=== PATIENT | female | born 1995 | race Hispanic/Latino ===

== ENCOUNTER 2017-11-14 16:39 | Emergency (ER) | payer OTHER ==
--- OUTSIDE RECORDS SUMMARY | 2017-11-14 16:42 | XMS REPORT ---
:1995 Author Organization eClinicalWorks Care Team Providers Name Role Phone Paul Wilder Provider Role Unavailable Allergies, Adverse Reactions, Alerts Substance Reaction Event Type N.K.D.A. Info Not Available Non Drug Allergy Problems Problem Type Condition Code Onset Dates Condition Status Problem Herpes simplex vulvovaginitis A60.04 Active Problem STI (sexually transmitted infection) A64 Active Problem IUD (intrauterine device) in place Z97.5 Active Assessment IUD (intrauterine device) in place Z97.5 Active Assessment Herpes simplex vulvovaginitis A60.04 Active Assessment STI (sexually transmitted infection) A64 Active Medications Medication Code System Code Instructions Start Date End Date Status Dosage Acyclovir [facility] [id number] 400 MG Orally October 18, Active 1 tablet Three times a day 2017 Results No Known Results Summary Purpose eClinicalWorks Submission
--- NOTE | 2017-11-14 17:39 | ER ---
Nurse's Notes [facility] Name: Gabi Thayer Age: 22 yrs Sex: Female : 1995 Arrival Date: 11/14/2017 Time: 16:41 Bed 20 Private MD: Diagnosis: Acute pharyngitis Presentation: 11/14 16:48 Presenting complaint: Patient states: my throat has been hurting really bad, started tw2 yesterday morning, coughing. Transition of care: patient was not received from another setting of care. Onset of symptoms was November 14, 2017. Initial Sepsis Screen: Does the patient meet any 2 criteria? No. Patient's initial sepsis screen is negative. Does the patient have a suspected source of infection? No. Patient's initial sepsis screen is negative. Care prior to arrival: None. 16:48 Method Of Arrival: Ambulatory tw2 16:48 Acuity: DOC 4 tw2 Triage Assessment: 17:08 General: Appears in no apparent distress. 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 - Social history:: Smoking status: Patient uses tobacco products, denies chronic smoking, but will smoke occasionally. Screenin:07 Abuse screen: Denies threats or abuse. Denies injuries from another. Nutritional hj screening: No deficits noted. Tuberculosis screening: No symptoms or risk factors identified. Fall Risk None identified. Assessment: 17:07 Pain: Complains of pain in throat. Respiratory: Airway is patent Respiratory effort is hj even, unlabored, Respiratory pattern is regular, symmetrical, Breath sounds are clear bilaterally. EENT: Throat has enlarged tonsils. 17:09 Reassessment: Patient and/or family updated on plan of care and expected duration. Pain hj level reassessed. Patient is alert, oriented x 3, equal unlabored respirations, skin warm/dry/pink. Vital Signs: 16:49 BP 117 / 63; Pulse 87; Resp 17; Temp 97.9(TE); Pulse Ox 98% on R/A; Weight 83.91 kg; tw2 Height 5 ft. 4 in. (162.56 cm) (R); Pain 10/10; 16:49 Body Mass Index 31.75 (83.91 kg, 162.56 cm) tw2 ED Course: 16:41 Patient arrived in ED. tw3 16:49 Triage completed. tw2 16:49 Arm band placed on. tw2 16:52 Zachary Crump NP is PHCP. pm1 16:52 Leonid Stanton MD is Attending Physician. pm1 16:56 Rome Suggs, IHSAN is Primary Nurse. hj 17:08 Patient has correct armband on for positive identification. Placed in gown. Bed in low hj position. Call light in reach. Side rails up X 1. 17:46 No provider procedures requiring assistance completed. Patient did not have IV access hj during this emergency room visit. Administered Medications: No medications were administered Outcome: 17:39 Discharge ordered by MD. pm1 17:46 Discharged to home ambulatory, with family. hj 17:46 Condition: stable 17:46 Discharge instructions given to patient, family, Instructed on discharge instructions, follow up and referral plans. Demonstrated understanding of instructions, follow-up care. 17:47 Patient left the ED. hj Signatures: Rome Suggs RN RN hj Marinas, Patrick, NP SOIL CONSERVATION AIDE pm1 Deb Diaz RN RN tw2 Lady Mccloud tw3
--- NOTE | 2017-11-14 17:40 | EDPHYS ---
Physician Documentation [facility] Name: Gabi Thayer Age: 22 yrs Sex: Female : 1995 Arrival Date: 11/14/2017 Time: 16:41 Bed 20 Private MD: ED Physician Leonid Stanton HPI: 11/14 17:10 This 22 yrs old Female presents to ER via Ambulatory with complaints of Sore pm1 Throat. 17:10 The patient presents with sore throat. The patient describes throat pain as constant, pm1 raw, scratchy. Onset: The symptoms/episode began/occurred yesterday. Severity of symptoms: in the emergency department the symptoms are actually worse. Modifying factors: The symptoms are alleviated by nothing, the symptoms are aggravated by fluids, foods, swallowing, Patient's oral intake status: good Denies contact with similarly ill indivduals. Associated signs and symptoms: Pertinent positives: cough, Pertinent negatives chest pain, diarrhea, earache, fever, flu-like symptoms, headache, rhinorrhea, shortness of breath, vomiting. The patient has not experienced similar symptoms in the past. The patient has not recently seen a physician. 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 - Social history:: Smoking status: Patient uses tobacco products, denies chronic smoking, but will smoke occasionally. ROS: 17:13 Constitutional: Negative for fever, chills, and weight loss, Eyes: Negative for injury, pm1 pain, redness, and discharge. 17:13 Neck: Negative for injury, pain, and swelling, Cardiovascular: Negative for chest pain, palpitations, and edema, Abdomen/GI: Negative for abdominal pain, nausea, vomiting, diarrhea, and constipation, Back: Negative for injury and pain, : Negative for injury, bleeding, discharge, and swelling, MS/Extremity: Negative for injury and deformity, Skin: Negative for injury, rash, and discoloration, Neuro: Negative for headache, weakness, numbness, tingling, and seizure. 17:13 ENT: Positive for sore throat, Negative for drainage from ear(s), ear pain, rhinorrhea, sinus congestion, sinus pain, difficulty swallowing, difficulty handling secretions, hoarseness. 17:13 Respiratory: Positive for cough, Negative for shortness of breath, sputum production, pm1 wheezing. Exam: 17:13 Constitutional: This is a well developed, well nourished patient who is awake, alert, pm1 and in no acute distress. Head/Face: Normocephalic, atraumatic. Eyes: Pupils equal round and reactive to light, extra-ocular motions intact. Lids and lashes normal. Conjunctiva and sclera are non-icteric and not injected. Cornea within normal limits. Periorbital areas with no swelling, redness, or edema. 17:13 Neck: Trachea midline, no thyromegaly or masses palpated, and no cervical lymphadenopathy. Supple, full range of motion without nuchal rigidity, or vertebral point tenderness. No Meningismus. Chest/axilla: Normal chest wall appearance and motion. Nontender with no deformity. No lesions are appreciated. Cardiovascular: Regular rate and rhythm with a normal S1 and S2. No gallops, murmurs, or rubs. Normal PMI, no JVD. No pulse deficits. Respiratory: Lungs have equal breath sounds bilaterally, clear to auscultation and percussion. No rales, rhonchi or wheezes noted. No increased work of breathing, no retractions or nasal flaring. Abdomen/GI: Soft, non-tender, with normal bowel sounds. No distension or tympany. No guarding or rebound. No evidence of tenderness throughout. Back: No spinal tenderness. No costovertebral tenderness. Full range of motion. Skin: Warm, dry with normal turgor. Normal color with no rashes, no lesions, and no evidence of cellulitis. MS/ Extremity: Pulses equal, no cyanosis. Neurovascular intact. Full, normal range of motion. 17:13 ENT: External ear(s): are unremarkable, Ear canal(s): are normal, TM's: are normal, Nose: is normal, Mouth: is normal, Posterior pharynx: Airway: normal, no evidence of obstruction, patent, Tonsils: bilaterally enlarged, with erythema, no exudate, no ulcerations, peritonsillar mass, is not appreciated, pooling of secretions, is not appreciated. 17:13 Neuro: Orientation: is normal, Motor: is normal, Gait: is steady, at a normal pace, without difficulty. Vital Signs: 16:49 BP 117 / 63; Pulse 87; Resp 17; Temp 97.9(TE); Pulse Ox 98% on R/A; Weight 83.91 kg; tw2 Height 5 ft. 4 in. (162.56 cm) (R); Pain 10/10; 16:49 Body Mass Index 31.75 (83.91 kg, 162.56 cm) tw2 MDM: 16:52 Patient medically screened. pm1 16:53 Data reviewed: vital signs. Data interpreted: Pulse oximetry: on room air is 98 %. pm1 Interpretation: normal. 17:38 Counseling: I had a detailed discussion with the patient and/or guardian regarding: the pm1 historical points, exam findings, and any diagnostic results supporting the discharge/admit diagnosis, lab results, the need for outpatient follow up, to return to the emergency department if symptoms worsen or persist or if there are any questions or concerns that arise at home. 11/14 17:01 Order name: Strep; Complete Time: 17:39 pm1 11/14 17:37 Order name: Throat Culture EDMS Administered Medications: No medications were administered Disposition: 18:16 Co-signature as Attending Physician, Leonid Stanton MD. rn Disposition: 11/14/17 17:39 Discharged to Home. Impression: Acute pharyngitis. - Condition is Stable. - Discharge Instructions: Pharyngitis, Salt Water Gargle. - Work release form, Medication Reconciliation Form, Thank You Letter, Antibiotic Education form. - Follow up: Emergency Department; When: As needed; Reason: Worsening of condition. Follow up: Private Physician; When: 2 - 3 days; Reason: Recheck today's complaints, Continuance of care, Re-evaluation by your physician. - Problem is new. - Symptoms have improved. Signatures: Dispatcher [employer] EDMS Leonid Stnaton MD MD rn Joaquin, Henry, RN RN hj Marinas, Patrick, NP FILM EDITOR pm1 Deb Diaz RN RN tw2 Corrections: (The following items were deleted from the chart) 17:13 17:13 Neck: Negative for injury, pain, and swelling, Cardiovascular: Negative for chest pm1 pain, palpitations, and edema, Respiratory: Negative for shortness of breath, cough, wheezing, and pleuritic chest pain, Abdomen/GI: Negative for abdominal pain, nausea, vomiting, diarrhea, and constipation, Back: Negative for injury and pain, : Negative for injury, bleeding, discharge, and swelling, MS/Extremity: Negative for injury and deformity, Skin: Negative for injury, rash, and discoloration, Neuro: Negative for headache, weakness, numbness, tingling, and seizure, pm1
[2017-11-14 18:01] VITALS: BP 117/63; TEMP 97.9; O2SAT 98
== END 2017-11-14 17:47 | disposition home or self-care (01) ==
LOC: ER 16:39
DX: J02.9 Acute pharyngitis, unspecified (principal); Z72.0 Tobacco use; Z88.5 Allergy status to narcotic agent
CPT/HCPCS: 87070; 87081; 99281

== ENCOUNTER 2018-05-25 09:32 | Emergency (ER) | payer OTHER, SELFPAY ==
--- OUTSIDE RECORDS SUMMARY | 2018-05-25 09:35 | XMS REPORT ---
[...] Start Date End Date Status Dosage [facility] [id number] 400 MG Orally October 18, Active 1 tablet Three times a day 2017 Results No Known Results Summary Purpose eClinicalWorks Submission
--- OUTSIDE RECORDS SUMMARY | 2018-05-25 09:35 | XMS REPORT ---
:1995 Author Organization eClinicalWorks Care Team Providers Name Role Phone Paul Wilder Provider Role Unavailable Allergies No Known Allergies Problems Problem Type Condition Code Onset Dates Condition Status Problem Herpes simplex vulvovaginitis A60.04 Active Problem STI (sexually transmitted infection) A64 Active Problem test performed, Z32.01 Active confirmed Problem IUD (intrauterine device) in place Z97.5 Active Assessment test performed, Z32.01 Active confirmed Medications Medication Code System Code Instructions Start Date End Date Status Dosage Acyclovir [facility] [id number] 400 MG Orally October 18, Active 1 tablet Three times a day 2017 Results Name Result Date Reference Range Unit Abnormality Flag TEST URINE ----RESULTS neg 20171212 URINALYSIS AUTO W/O SCOPE (73005) ----PROTEIN NEG 20171212 ----pH 6.0 20171212 ----NIT NEG 20171212 ----MOHINI TRACE 20171212 ----URO 0.2 20171212 ----SPECIFIC GRAVITY 1.025 20171212 ----BLO NEG 20171212 ----BILIRUBIN NEG 20171212 ----KETONES NEG 20171212 ----GLUCOSE NEG 20171212 Summary Purpose eClinicalWorks Submission
--- NOTE | 2018-05-25 10:49 | ER ---
Nurse's Notes [facility] Name: Gabi Thayer Age: 22 yrs Sex: Female : 1995 Arrival Date: 05/25/2018 Time: 09:34 Bed 15 Private MD: Diagnosis: Acute upper respiratory infection, unspecified Presentation: 05/25 09:40 Presenting complaint: Patient states: Nonproductive cough and sinus congestion 1 week, hb sore throat x 2 days. Transition of care: patient was not received from another setting of care. Onset of symptoms was May 25, 2018. Risk Assessment: Do you want to hurt yourself or someone else? Patient reports no desire to harm self or others. Initial Sepsis Screen: Does the patient meet any 2 criteria? No. Patient's initial sepsis screen is negative. Does the patient have a suspected source of infection? No. Patient's initial sepsis screen is negative. Care prior to arrival: None. 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 - Social history:: Smoking status: Patient/guardian denies using tobacco. - Ebola Screening: : No symptoms or risks identified at this time. Screenin:54 Abuse screen: Denies threats or abuse. Denies injuries from another. Nutritional ch screening: No deficits noted. Tuberculosis screening: No symptoms or risk factors identified. Fall Risk None identified. Assessment: 10:54 General: Appears in no apparent distress. comfortable, Behavior is calm, cooperative, ch appropriate for age. Pain: Complains of pain in head and throat Pain currently is 4 out of 10 on a pain scale. Pain began gradually. Neuro: No deficits noted. Cardiovascular: No deficits noted. Respiratory: Airway is patent Respiratory effort is even, unlabored, Breath sounds are coarse bilaterally. GI: No signs and/or symptoms were reported involving the gastrointestinal system. EENT: Nares with drainage noted Oral mucosa is moist. Throat is reddened has enlarged tonsils bilaterally. EENT:. Derm: No signs and/or symptoms reported regarding the dermatologic system. Skin is pink, warm \T\ dry. Vital Signs: 09:40 BP 125 / 87; Pulse 71; Resp 16; Temp 97.9(O); Pulse Ox 99% on R/A; Pain 5/10; hb 10:54 BP 115 / 73; Pulse 61; Resp 15; Temp 98.2; Pulse Ox 99% on R/A; Pain 4/10; ch ED Course: 09:34 Patient arrived in ED. as 09:36 Juan F Petty PA is PHCP. cp 09:36 Leonid Stanton MD is Attending Physician. cp 09:37 Zari Anderson, IHSAN is Primary Nurse. ch 09:41 Triage completed. hb 09:41 Arm band placed on. hb 10:16 Influenza Screen (a \T\ B) Sent. ch 10:16 Strep Sent. ch 10:54 No apparent distress. Resting quietly. ch 10:54 Patient has correct armband on for positive identification. Bed in low position. Call light in reach. Side rails up X 1. Adult w/ patient. Pulse ox on. NIBP on. 10:54 No provider procedures requiring assistance completed. Patient did not have IV access ch during this emergency room visit. Administered Medications: No medications were administered Outcome: 10:48 Discharge ordered by MD. cp 10:54 Discharged to home ambulatory, with family. ch 10:54 Condition: stable 10:54 Discharge instructions given to patient, family, Instructed on discharge instructions, follow up and referral plans. medication usage, Demonstrated understanding of instructions, follow-up care, medications, Prescriptions given X 1. 10:57 Patient left the ED. Signatures: Zari Anderson, RN RN Halie Scott as Juan F Petty PA PA cp Baxter, Heather, RN RN
--- NOTE | 2018-05-25 10:49 | EDPHYS ---
Physician Documentation [facility] Name: Gabi Thayer Age: 22 yrs Sex: Female : 1995 Arrival Date: 05/25/2018 Time: 09:34 Bed 15 Private MD: ED Physician Leonid Stanton HPI: 05/25 09:49 This 22 yrs old Female presents to ER via Ambulatory with complaints of Cough, cp Sore Throat. 09:49 The patient or guardian reports cough, that is intermittent, with productive sputum. cp Onset: The symptoms/episode began/occurred 5 day(s) ago. Severity of symptoms: in the emergency department the symptoms are unchanged, despite home interventions. Associated signs and symptoms: Pertinent positives: sore throat, Pertinent negatives: chest pain, ear ache, fever, vomiting. 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 - Social history:: Smoking status: Patient/guardian denies using tobacco. - Ebola Screening: : No symptoms or risks identified at this time. ROS: 09:50 Eyes: Negative for injury, pain, redness, and discharge. cp 09:50 Constitutional: Negative for body aches, chills, fever, poor PO intake. 09:50 ENT: Positive for sore throat, Negative for drainage from ear(s), ear pain, difficulty swallowing, difficulty handling secretions. 09:50 Cardiovascular: Negative for chest pain, edema, palpitations. 09:50 Respiratory: Positive for cough, Negative for shortness of breath, wheezing. 09:50 Abdomen/GI: Negative for abdominal pain, vomiting, diarrhea, constipation. 09:50 Back: Negative for radiated pain. 09:50 Skin: Negative for cellulitis, rash. 09:50 Neuro: Negative for altered mental status, headache, weakness. 09:50 All other systems are negative. Exam: 09:51 Head/Face: Normocephalic, atraumatic. cp 09:51 Constitutional: The patient appears in no acute distress, alert, awake, non-toxic, well developed, well nourished. 09:51 Eyes: Periorbital structures: appear normal, Conjunctiva: normal, no exudate, no injection, Sclera: no appreciated abnormality, Lids and lashes: appear normal, bilaterally. 09:51 ENT: External ear(s): are unremarkable, Ear canal(s): cerumen impaction, that is moderate, occluding the right ear canal, Examination of the other ear shows no obvious abnormality, Nose: nasal drainage, that is minimal, Mouth: Lips: moist, Oral mucosa: pink and intact, moist, Posterior pharynx: Airway: no evidence of obstruction, patent, Tonsils: no enlargement, no exudate, Uvula: midline, swelling, is not appreciated, erythema, that is mild, exudate, is not appreciated, Voice: is normal. 09:51 Neck: ROM/movement: is normal, is supple, without pain, no range of motions limitations, no meningismus, no nuchal rigidity, Lymph nodes: no appreciated lymphadenopathy. 09:51 Chest/axilla: Inspection: normal, Palpation: is normal, no crepitus, no tenderness. 09:51 Cardiovascular: Rate: normal, Rhythm: regular. 09:51 Respiratory: the patient does not display signs of respiratory distress, Respirations: normal, no use of accessory muscles, no retractions, no splinting, no tachypnea, labored breathing, is not present, Breath sounds: are clear throughout, no decreased breath sounds, no stridor, no wheezing. 09:51 Abdomen/GI: Exam negative for discomfort, distension, guarding, Inspection: abdomen appears normal. 09:51 Skin: cellulitis, is not appreciated, no rash present. Vital Signs: 09:40 BP 125 / 87; Pulse 71; Resp 16; Temp 97.9(O); Pulse Ox 99% on R/A; Pain 5/10; hb 10:54 BP 115 / 73; Pulse 61; Resp 15; Temp 98.2; Pulse Ox 99% on R/A; Pain 4/10; ch MDM: 09:40 Patient medically screened. cp 10:47 Data reviewed: vital signs, nurses notes, lab test result(s), and as a result, I will cp discharge patient. 10:47 Differential Diagnosis: Bronchitis Influenza Upper Respiratory Infection Sinusitis cp Otitis Media Viral Syndrome Pneumonia. Counseling: I had a detailed discussion with the patient and/or guardian regarding: the historical points, exam findings, and any diagnostic results supporting the discharge/admit diagnosis, lab results, to return to the emergency department if symptoms worsen or persist or if there are any questions or concerns that arise at home. Special discussion: I discussed with the patient/guardian that the patient's current presentation does not indicate dosing of antibiotics. They should follow-up with their primary care provider and return if the symptoms persist or progress. 05/25 09:44 Order name: Strep cp 05/25 09:44 Order name: Influenza Screen (a \T\ B) cp 05/25 10:42 Order name: Throat Culture EDMS Administered Medications: No medications were administered Disposition: 17:44 Co-signature as Attending Physician, Leonid Stanton MD. Chart complete. rn Disposition: 05/25/18 10:48 Discharged to Home. Impression: Acute upper respiratory infection, unspecified. - Condition is Stable. - Discharge Instructions: Upper Respiratory Infection, Adult. - Prescriptions for Tessalon Perles 100 mg Oral Capsule - take 1 capsule by ORAL route every 8 hours As needed; 15 capsule. - Work release form, Medication Reconciliation Form, Thank You Letter, Antibiotic Education, Prescription Opioid Use form. - Follow up: Private Physician; When: 2 - 3 days; Reason: symptoms continue. - Problem is new. - Symptoms are unchanged. Signatures: Dispatcher [employer] EDZari Perkins RN RN ch Nieto, Roman, MD MD rn Page, Corey, PA PA cp Andra Daniels RN RN Corrections: (The following items were deleted from the chart) 10:57 10:48 05/25/2018 10:48 Discharged to Home. Impression: Acute upper respiratory ch infection, unspecified. Condition is Stable. Forms are Medication Reconciliation Form, Thank You Letter, Antibiotic Education, Prescription Opioid Use. Follow up: Private Physician; When: 2 - 3 days; Reason: symptoms continue. Problem is new. Symptoms are unchanged. cp
[2018-05-25 11:16] VITALS: O2SAT 99
[2018-05-25 11:18] VITALS: BP 115/73; TEMP 98.2
== END 2018-05-25 10:57 | disposition home or self-care (01) ==
LOC: ER 09:32
DX: J06.9 Acute upper respiratory infection, unspecified (principal); F41.9 Anxiety disorder, unspecified; Z88.5 Allergy status to narcotic agent
CPT/HCPCS: 87070; 87081; 87804; 99283

== ENCOUNTER 2018-09-25 13:49 | Emergency (ER) | payer OTHER ==
--- OUTSIDE RECORDS SUMMARY | 2018-09-25 14:27 | XMS REPORT ---
[...] Start Date End Date Status Dosage Acyclovir [facility] [id number] 400 MG Orally October 18, Active 1 tablet Three times a day 2017 Results No Known Results Summary Purpose eClinicalWorks Submission
--- OUTSIDE RECORDS SUMMARY | 2018-09-25 14:27 | XMS REPORT ---
[...] Start Date End Date Status Dosage Acyclovir [facility] [id number] 400 MG Orally October 18, Active 1 tablet Three times a day 2017 Results Name Result Date Reference Range Unit Abnormality Flag TEST URINE ----RESULTS neg 20171212 URINALYSIS AUTO W/O SCOPE (23070) ----PROTEIN NEG 20171212 ----pH 6.0 20171212 ----NIT NEG 20171212 ----MOHINI TRACE 20171212 ----URO 0.2 20171212 ----SPECIFIC GRAVITY 1.025 20171212 ----BLO NEG 20171212 ----BILIRUBIN NEG 20171212 ----KETONES NEG 20171212 ----GLUCOSE NEG 20171212 Summary Purpose eClinicalWorks Submission
--- NOTE | 2018-09-25 14:55 | EDPHYS ---
Physician Documentation [facility] Name: Gabi Thayer Age: 23 yrs Sex: Female : 1995 Arrival Date: 09/25/2018 Time: 13:52 Bed 10 Private MD: ED Physician Benjamin Ramos HPI: 09/25 14:49 This 23 yrs old Female presents to ER via Ambulatory with complaints of gs Toothache. 14:49 The patient presents with pain. The problem is located in the upper right third molar, gs upper right second molar, upper left third molar, lower left third molar, lower right second molar and lower right third molar. Onset: The symptoms/episode began/occurred 1 week(s) ago. Duration: The symptoms are continuous. Associated signs and symptoms: Pertinent negatives: dysphagia, fever, redness in area, swelling. Severity of symptoms: At their worst the symptoms were moderate, in the emergency department the symptoms are unchanged. The patient has experienced similar episodes in the past, multiple times. 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 - Social history:: Smoking status: Patient/guardian denies using tobacco, Patient/guardian denies using alcohol, street drugs. - Ebola Screening: : Patient negative for fever greater than or equal to 101.5 degrees Fahrenheit, and additional compatible Ebola Virus Disease symptoms Patient denies exposure to infectious person Patient denies travel to an Ebola-affected area in the 21 days before illness onset No symptoms or risks identified at this time. ROS: 14:49 All other systems are negative. gs Exam: 14:49 Head/Face: Normocephalic, atraumatic. Eyes: Pupils equal round and reactive to light, gs extra-ocular motions intact. Lids and lashes normal. Conjunctiva and sclera are non-icteric and not injected. Cornea within normal limits. Periorbital areas with no swelling, redness, or edema. Neck: Trachea midline, no thyromegaly or masses palpated, and no cervical lymphadenopathy. Supple, full range of motion without nuchal rigidity, or vertebral point tenderness. No Meningismus. Cardiovascular: Regular rate and rhythm with a normal S1 and S2. No gallops, murmurs, or rubs. Normal PMI, no JVD. No pulse deficits. Respiratory: Lungs have equal breath sounds bilaterally, clear to auscultation and percussion. No rales, rhonchi or wheezes noted. No increased work of breathing, no retractions or nasal flaring. Abdomen/GI: Soft, non-tender, with normal bowel sounds. No distension or tympany. No guarding or rebound. No evidence of tenderness throughout. Back: No spinal tenderness. No costovertebral tenderness. Full range of motion. Skin: Warm, dry with normal turgor. Normal color with no rashes, no lesions, and no evidence of cellulitis. MS/ Extremity: Pulses equal, no cyanosis. Neurovascular intact. Full, normal range of motion. Neuro: Awake and alert, GCS 15, oriented to person, place, time, and situation. Cranial nerves II-XII grossly intact. Motor strength 5/5 in all extremities. Sensory grossly intact. Cerebellar exam normal. Normal gait. 14:49 Constitutional: The patient appears in no acute distress, alert, awake. 14:49 ENT: Dental exam: dental caries, that is mild, specifically in the upper right second molar (#2), impacted wisdom teeth. Vital Signs: 14:10 BP 109 / 68; Pulse 94; Resp 16; Temp 98.6; Pulse Ox 99% on R/A; Weight 76.66 kg; Height ch 5 ft. 1 in. (154.94 cm); Pain 10/10; 14:10 Body Mass Index 31.93 (76.66 kg, 154.94 cm) ch MDM: 14:41 Patient medically screened. 14:49 Data reviewed: vital signs, nurses notes. Counseling: I had a detailed discussion with gs the patient and/or guardian regarding: the historical points, exam findings, and any diagnostic results supporting the discharge/admit diagnosis. Administered Medications: No medications were administered Disposition: 09/25/18 14:56 Discharged to Home as Medical Screen. Impression: Encounter for screening, unspecified. - Condition is Stable. - Medication Reconciliation Form, Thank You Letter, Antibiotic Education, Prescription Opioid Use form. - Follow up: Private Physician; When: 2 - 3 days; Reason: Re-evaluation by your physician. Signatures: Zari Anderson, RN RN Erica Foster RN RN Benjamin Ramos MD MD gs Corrections: (The following items were deleted from the chart) 14:56 14:54 09/25/2018 14:54 Discharged to Home. Impression: Dental caries. Condition is ss Stable. Forms are Medication Reconciliation Form, Thank You Letter, Antibiotic Education, Prescription Opioid Use. ss 14:57 14:56 09/25/2018 14:56 Discharged to Home. Impression: Encounter for screening, gs unspecified. Condition is Stable. Forms are Medication Reconciliation Form, Thank You Letter, Antibiotic Education, Prescription Opioid Use. Follow up: Private Physician; When: 2 - 3 days; Reason: Re-evaluation by your physician. gs
--- NOTE | 2018-09-25 14:55 | ER ---
Nurse's Notes [facility] Name: Gabi Thayer Age: 23 yrs Sex: Female : 1995 Arrival Date: 09/25/2018 Time: 13:52 Bed 10 Private MD: Diagnosis: Encounter for screening, unspecified Presentation: 09/25 14:08 Presenting complaint: Patient states: dental pain to R side, upper and lower, for ch months, worse the past few days. Transition of care: patient was not received from another setting of care. Onset of symptoms was 2018. Risk Assessment: Do you want to hurt yourself or someone else? Patient reports no desire to harm self or others. Initial Sepsis Screen: Does the patient meet any 2 criteria? No. Patient's initial sepsis screen is negative. Does the patient have a suspected source of infection? No. Patient's initial sepsis screen is negative. Care prior to arrival: None. 14:08 Method Of Arrival: Ambulatory 14:08 Acuity: DOC 5 ch Triage Assessment: 14:10 General: Appears in no apparent distress. comfortable, Behavior is calm, cooperative, ch appropriate for age. Pain: Complains of pain in mouth Pain currently is 10 out of 10 on a pain scale. EENT: Reports pain in mouth. 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 - Social history:: Smoking status: Patient/guardian denies using tobacco, Patient/guardian denies using alcohol, street drugs. - Ebola Screening: : Patient negative for fever greater than or equal to 101.5 degrees Fahrenheit, and additional compatible Ebola Virus Disease symptoms Patient denies exposure to infectious person Patient denies travel to an Ebola-affected area in the 21 days before illness onset No symptoms or risks identified at this time. Screenin:40 Abuse screen: Denies threats or abuse. Denies injuries from another. Nutritional ls4 screening: No deficits noted. Tuberculosis screening: No symptoms or risk factors identified. Fall Risk None identified. Assessment: 14:54 Reassessment: Patient appears in no apparent distress at this time. Patient and/or ss family updated on plan of care and expected duration. Pain level reassessed. Patient is alert, oriented x 3, equal unlabored respirations, skin warm/dry/pink. Vital Signs: 14:10 BP 109 / 68; Pulse 94; Resp 16; Temp 98.6; Pulse Ox 99% on R/A; Weight 76.66 kg; Height 5 ft. 1 in. (154.94 cm); Pain 10/10; 14:10 Body Mass Index 31.93 (76.66 kg, 154.94 cm) ED Course: 13:52 Patient arrived in ED. as 14:09 Triage completed. 14:10 Arm band placed on right wrist. Patient placed in waiting room. 14:30 Benjamin Ramos MD is Attending Physician. 14:34 Erica Foster RN is Primary Nurse. 14:40 Patient has correct armband on for positive identification. Bed in low position. Call ls4 light in reach. Side rails up X 1. 14:53 No provider procedures requiring assistance completed. Patient did not have IV access ss during this emergency room visit. Administered Medications: No medications were administered Outcome: 14:53 Medical screen evaluation completed per provider. Patient declined treatment. ss 14:53 Condition: good 14:53 Instructed on follow up and referral plans. 14:54 Discharge ordered by . 14:54 Patient left the ED. 14:56 Discharge ordered by . 14:57 Patient left the ED. Signatures: Zari Anderson, IHSAN CHAMPAGNE Halie Rahman Shelby, RN RN Benjamin Ramos MD MD Marla Pham RN RN ls4
[2018-09-25 15:06] VITALS: BP 109/68; TEMP 98.6; O2SAT 99
== END 2018-09-25 14:57 | disposition home or self-care (01) ==
LOC: ER 13:49
DX: Z13.9 Encounter for screening, unspecified (principal); F41.9 Anxiety disorder, unspecified; Z88.5 Allergy status to narcotic agent
CPT/HCPCS: 99281

== ENCOUNTER 2020-10-20 13:35 | Emergency (ER) | payer OTHER ==
--- OUTSIDE RECORDS SUMMARY | 2020-10-20 13:41 | XMS REPORT | Continuity of Care Document ---
:1995 Author Organization [facility] t Address [address] [place] [address] Care Team Providers Name Role Phone Provider, Urgent Care Attending Clinician Unavailable Juve Fernandes DO Attending Clinician Alba BAZZICNP, C Attending Clinician Richardson INTERNATIONAL FREIGHT FORWARDER, N Attending Clinician Doctor Unassigned, Name Attending Clinician Unavailable Problems Condition Condition Condition Status Onset Resolution Last Treating Co mments Source Name Details Category Date Date Treatment Clinician Date Diagnosis Active [facility] test test [facility] - performed, performed, Me moria l confirmed confirmed Outp ati ent Clinics Herpes Herpes Problem Active [facility] simplex simplex [facility] - vulvovagin vul[facility]ovagin [facility] STI STI Problem Active [facility] (sexually (sexually [facility] - transmitte transmitte Me moria d d l infection) infection) [facility]u [facility] ent Clinics IUD IUD Problem Active [facility] (intrauter (intrauter Trudy kes - ine ine Memoria device) in device) [facility] Allergies, Adverse Reactions, Alerts This patient has no known allergies or adverse reactions. Medications Ordered Filled Start Stop Current Ordering Indication Dosage Frequency Signature Comments Components Source Medication Medication Date Date Medication? Clinician (SIG) Name Name Acyclovir Acyclovir 2017-0 Yes Paul [address] [facility] 3-28 Rekhi [facility] - 00:00: Memoria 00 l Outpati ent Clinics Procedures This patient has no known procedures. Encounters Start End Encounter Admission Attending Care Care Encounter Source Date/Time Date/Time Type Type Clinicians Facility Department ID 2020-10-15 2020-10-15 Urgent Provider, [facility] [id number] 15:36:50 16:19:19 Care [facility] [id number] Care [place] [id number] Profhung [id number] nal [address] 2020-10-13 2020-10-13 Patient Dom [facility] [id number] 00:00:00 00:00:00 Outreach Michael PRIMARY [id number] [facility] [id number] PAVILLION [id number] 2020-09-23 2020-09-23 Refill Alba [facility] [id number] 00:00:00 00:00:00 Oxana Walters SPECIAL EFFECTS MAKEUP ARTIST [id number] [facility] [id number] MATERNAL [id number] & CHILD 107 [facility] 2020-05-13 2020-05-13 Office Richardson [facility] [id number] 14:43:30 15:17:12 Visit Meg Leiva SPECIAL EFFECTS MAKEUP ARTIST [id number] [facility] [id number] MATERNAL [id number] & CHILD 107 [facility] 2020-05-13 2020-05-13 Orders Doctor LEARY [id number] 00:00:00 00:00:00 Only UnassignedWENDY [id number] Kamrar [facility] [id number] 2020-05-05 2020-05-05 Orders Doctor LEARY [id number] 00:00:00 00:00:00 Only UnassignedWENDY [id number] Kamrar [facility] [id number] 2017-12-08 2017-12-08 [facility] [id number] [address] 11:00:00 11:00:00 [facility] ent [facility] 2017-10-18 2017-10-18 Outpatient Ayaz Alberto [id number] [facility] 11:15:00 11:15:00 [facility] Results This patient has no known results.
[2020-10-20] MEDS ORDERED: ACETAMINOPHEN 500 MG TAB ONE (15:13)
[2020-10-20] MEDS ORDERED: ONDANSETRON 4 MG/2 ML VIAL ONE (15:13)
[2020-10-20] MEDS ORDERED: NA CHLORIDE 0.9% 1,000 ML ONE (15:14)
[2020-10-20 15:33] LABS: SARS-COV-2 RT PCR NEGATIVE (NEGATIVE)
[2020-10-20 15:44] LABS: Urine Blood 3+ (Negative); Urine Glucose Negative (Negative); Urine Protein 3+ (Negative)
[2020-10-20 15:47] LABS: Absolute Lymphocytes (CBC) 0.9 K/uL (0.7-4.9); Basophils % 0.1 % (0-1.3); Lymphocytes % 5.7 % (15.3-44.8); MPV 8.5 fL (7.6-11.3); RBC Red Blood Cell Count 4.59 M/uL (3.86-4.86)
[2020-10-20 15:53] LABS: Albumin 3.6 g/dL (3.4-5.0); Bilirubin Direct 0.2 mg/dL (0-0.2); Bilirubin Total 0.6 mg/dL (0.2-1.0); Potassium 3.3 mmol/L (3.5-5.1); Protein, Total 8.7 g/dL (6.4-8.2)
--- NOTE | 2020-10-20 18:01 | RAD REPORT ---
EXAM DESCRIPTION: CT - Abdomen Pelvis W Contrast - 10/20/2020 5:29 pm CLINICAL HISTORY: Abdominal pain/left flank COMPARISON: 2015 TECHNIQUE: Computed axial tomography of the abdomen pelvis was obtained. 100 cc Isovue-300 was admin istered intravenously. Oral contrast was not requested which limits evaluation of bowel. All CT scans are performed using dose optimization technique as appropriate and may include automated exposure control or mA/KV adjustment according to patient size. FINDINGS: The liver, spleen, pancreas, adrenal and right kidney appear unremarkable. There is no evidence of diverticulitis. Moderate low-density areas are present throughout the left kidney extending to the periphery compatib le with infection IMPRESSION: Moderate left pyelonephritis
[2020-10-20] MEDS ORDERED: NA CHLORIDE 0.9% 100 ML ONE (18:38)
[2020-10-20] MEDS ORDERED: CEFTRIAXONE/SWI 1gm 1 GM/10 ML SYR ONE (18:38)
--- NOTE | 2020-10-20 19:08 | ER ---
Nurse's Notes [facility] Name: Gabi Thayer Age: 25 yrs Sex: Female : 1995 Arrival Date: 10/20/2020 Time: 13:38 Bed 8 Private MD: Diagnosis: Pyelonephritis Presentation: 10/20 14:00 Chief complaint: Patient states: N/V/D, fever, loss of taste, cough started Monday. Got ll1 her 1st covid vaccine . Fever 100.7 at home. Coronavirus screen: Client denies travel out of the [place] in the last 14 days. cough unrelated to allergies, fatigue, fever, headache, nausea, loss of taste or smell, vomiting. Client presents with at least one sign or symptom that may indicate coronavirus-19. Standard/surgical mask placed on the client. Ebola Screen: Patient denies travel to an Ebola-affected area in the 21 days before illness onset. Initial Sepsis Screen: Does the patient meet any 2 criteria? Temp <36.0*C (96.8*F)) or > 38.3*C (100.9*F). HR > 90 bpm. No. Patient's initial sepsis screen is negative. Does the patient have a suspected source of infection? Yes: Productive cough/pneumonia. Risk Assessment: Do you want to hurt yourself or someone else? Patient reports no desire to harm self or others. Onset of symptoms was October 18, 2020. 14:00 Method Of Arrival: Ambulatory ll1 14:00 Acuity: DOC 3 ll1 Triage Assessment: 14:30 General: Appears distressed, uncomfortable, obese, Behavior is cooperative, appropriate bp for age, anxious. Pain: Denies pain. EENT: No deficits noted. Neuro: No deficits noted. Cardiovascular: No deficits noted. Respiratory: No deficits noted. GI: Reports diarrhea, nausea, vomiting. : No signs and/or symptoms were reported regarding the genitourinary system. Derm: No deficits noted. Musculoskeletal: No deficits noted. Historical: - Allergies: 14:02 Codeine; ll1 - PMHx: 14:02 Anxiety; HERPES; Rheumatoid Arthritis; ll1 - PSHx: 14:02 Cholecystectomy; Knee surgery; ll1 - Immunization history:: Flu vaccine is not up to date. - Social history:: Smoking status: Patient denies any tobacco usage or history of. Screenin:35 Abuse screen: Denies threats or abuse. Nutritional screening: No deficits noted. tw2 Tuberculosis screening: No symptoms or risk factors identified. Fall Risk None identified. Assessment: 14:30 General: SEE TRIAGE NOTE. bp 15:30 Reassessment: No changes from previously documented assessment. Patient and/or family bp updated on plan of care and expected duration. Pain level reassessed. Patient is alert, oriented x 3, equal unlabored respirations, skin warm/dry/pink. GI: Abdomen is non-distended. 16:30 Reassessment: No changes from previously documented assessment. Patient and/or family bp updated on plan of care and expected duration. Pain level reassessed. Patient is alert, oriented x 3, equal unlabored respirations, skin warm/dry/pink. 17:58 Reassessment: No changes from previously documented assessment. Patient and/or family bp updated on plan of care and expected duration. Pain level reassessed. Patient is alert, oriented x 3, equal unlabored respirations, skin warm/dry/pink. ALL CURRENT ORDERS COMPLETED. 19:15 Reassessment: Patient appears in no apparent distress at this time. Patient and/or sg family updated on plan of care and expected duration. Pain level reassessed. Patient is alert, oriented x 3, equal unlabored respirations, skin warm/dry/pink. Vital Signs: 14:00 BP 122 / 83; Pulse 111; Resp 16; Temp 101.2; Pulse Ox 97% on R/A; Weight 74.84 kg; ll1 Height 5 ft. 1 in. (154.94 cm); Pain 10/10; 16:30 BP 105 / 67; Pulse 99; Resp 17; Pulse Ox 99% ; bp 18:00 BP 131 / 56; Pulse 99; Resp 16; Pulse Ox 99% ; bp 19:00 BP 115 / 77; Pulse 89; Resp 17; Temp 98.9; Pulse Ox 100% on R/A; sg 14:00 Body Mass Index 31.18 (74.84 kg, 154.94 cm) ll1 ED Course: 13:38 Patient arrived in ED. ds1 14:02 Triage completed. ll1 14:03 Arm band placed on. ll1 14:30 Bed in low position. Call light in reach. Pulse ox on. NIBP on. tw2 14:31 Ruben Wylie PA is PHCP. [facility] 14:31 Dominick Schofield MD is Attending Physician. [facility] 14:33 Jason Hermosillo, RN is Primary Nurse. bp 15:10 Inserted saline lock: 20 gauge in right forearm, using aseptic technique. Blood bp collected. 17:29 CT Abd/Pelvis - IV Contrast Only In Process Unspecified. EDMS 19:28 No provider procedures requiring assistance completed. IV discontinued, intact, sg bleeding controlled, No redness/swelling at site. Pressure dressing applied. Administered Medications: 15:10 Drug: Zofran (Ondansetron) 4 mg Route: IVP; Site: right forearm; bp 15:10 Drug: NS 0.9% 1000 ml Route: IV; Rate: 1 bolus; Site: right forearm; bp 15:10 Drug: Tylenol 1000 mg Route: PO; bp 18:27 Follow up: Response: Temperature is decreased bp 18:15 Drug: Rocephin (cefTRIAXone) 2 grams Route: IV; Rate: calculated rate; Site: right bp forearm; Outcome: 19:08 Discharge ordered by . [facility] 19:28 Discharged to home ambulatory, with family. sg 19:28 Condition: good 19:28 Discharge instructions given to patient, Instructed on discharge instructions, follow up and referral plans. medication usage, safety practices, Demonstrated understanding of instructions, follow-up care, medications, Prescriptions given X 4. 19:30 Patient left the ED. sg Signatures: Dispatcher [employer] EDMS Bucky Mcmanus RN RN sg Ruben Wylie PA PA Mony Graff ds1 Deb Diaz RN RN tw2 Jason Hermosillo, RN RN Mj Zamora RN RN ll1 Corrections: (The following items were deleted from the chart) 16:56 16:55 BP 105 / 67; Pulse 99bpm; Resp 17bpm; Pulse Ox 99%; bp bp
--- NOTE | 2020-10-20 19:08 | EDPHYS ---
Physician Documentation [facility] Name: Gabi Thayer Age: 25 yrs Sex: Female : 1995 Arrival Date: 10/20/2020 Time: 13:38 Bed 8 Private MD: ED Physician Dominick Schofield HPI: 10/20 15:01 This 25 yrs old Female presents to ER via Ambulatory with complaints of jmm Nausea/Vomiting/Diarrhea. 15:01 The patient presents to the emergency department with nausea, vomiting. Onset: The jmm symptoms/episode began/occurred gradually, 2 day(s) ago. Possible causes: unknown. The symptoms are aggravated by nothing. The symptoms are alleviated by nothing. Associated signs and symptoms: Pertinent positives:. This is a 25 year old female with a history of RA, anxiety that presents to the ED with complaints of cough, vomiting, body aches beginning this past Monday. . Historical: - Allergies: 14:02 Codeine; ll1 - PMHx: 14:02 Anxiety; HERPES; Rheumatoid Arthritis; ll1 - PSHx: 14:02 Cholecystectomy; Knee surgery; ll1 - Immunization history:: Flu vaccine is not up to date. - Social history:: Smoking status: Patient denies any tobacco usage or history of. ROS: 15:01 Constitutional: Positive for body aches, fever. jmm 15:01 Respiratory: Positive for cough. 15:01 Abdomen/GI: Positive for nausea and vomiting. 15:01 All other systems are negative. Exam: 15:01 Constitutional: This is a well developed, well nourished patient who is awake, alert, jmm and in no acute distress. Head/Face: atraumatic. Eyes: EOMI, no conjunctival erythema appreciated ENT: Moist Mucus Membranes Neck: Trachea midline, Supple Chest/axilla: Normal chest wall appearance and motion. Cardiovascular: Regular rate and rhythm. No edema appreciated Respiratory: Normal respirations, no respiratory distress appreciated 15:01 Back: Normal ROM Skin: General appearance color normal MS/ Extremity: Moves all extremities, no obvious deformities appreciated, no edema noted to the lower extremities Neuro: Awake and alert, normal gait Psych: Behavior is normal, Mood is normal, Patient is cooperative and pleasant 15:01 Abdomen/GI: Inspection: abdomen appears normal, Bowel sounds: normal, Palpation: abdomen is soft and non-tender, in all quadrants. Vital Signs: 14:00 BP 122 / 83; Pulse 111; Resp 16; Temp 101.2; Pulse Ox 97% on R/A; Weight 74.84 kg; ll1 Height 5 ft. 1 in. (154.94 cm); Pain 10/10; 16:30 BP 105 / 67; Pulse 99; Resp 17; Pulse Ox 99% ; bp 18:00 BP 131 / 56; Pulse 99; Resp 16; Pulse Ox 99% ; bp 19:00 BP 115 / 77; Pulse 89; Resp 17; Temp 98.9; Pulse Ox 100% on R/A; sg 14:00 Body Mass Index 31.18 (74.84 kg, 154.94 cm) ll1 MDM: 14:43 Patient medically screened. [facility] 19:06 Data reviewed: vital signs, nurses notes. Counseling: I had a detailed discussion with gina the patient and/or guardian regarding: the historical points, exam findings, and any diagnostic results supporting the discharge/admit diagnosis, lab results, radiology results, the need for outpatient follow up, to return to the emergency department if symptoms worsen or persist or if there are any questions or concerns that arise at home. ED course: Patient is alert and non toxic in appearance in the ED. Patient is able to tolerate PO. Patient is given strict return precautions. Patient understood and agrees with the plan of care. . 10/20 14:43 Order name: Basic Metabolic Panel [facility] 10/20 14:43 Order name: CBC with Diff [facility] 10/20 14:43 Order name: Hepatic Function [facility] 10/20 14:43 Order name: Lipase [facility] 10/20 14:44 Order name: Basic Metabolic Panel; Complete Time: 15:54 EDMS 10/20 14:44 Order name: CBC with Automated Diff; Complete Time: 15:52 EDMS 10/20 14:44 Order name: Liver (Hepatic) Function; Complete Time: 15:54 EDMS 10/20 14:44 Order name: Lipase; Complete Time: 15:54 EDMS 10/20 15:33 Order name: COVID-19/FLU A+B; Complete Time: 15:52 EDMS 10/20 15:44 Order name: Urine Dipstick-Ancillary; Complete Time: 15:52 EDMI 10/20 15:46 Order name: Urine --Ancillary (enter results); Complete Time: 16:07 10/20 17:09 Order name: CT Abd/Pelvis - IV Contrast Only; Complete Time: 18:02 [facility] 10/20 14:32 Order name: Urine Dipstick-Ancillary (obtain specimen); Complete Time: 16:21 [facility] 10/20 14:43 Order name: IV Saline Lock; Complete Time: 15:14 [facility] 10/20 14:43 Order name: Labs collected and sent; Complete Time: 15:14 [facility] 10/20 18:16 Order name: PO challenge; Complete Time: 18:28 [facility] Administered Medications: 15:10 Drug: Zofran (Ondansetron) 4 mg Route: IVP; Site: right forearm; bp 15:10 Drug: NS 0.9% 1000 ml Route: IV; Rate: 1 bolus; Site: right forearm; bp 15:10 Drug: Tylenol 1000 mg Route: PO; bp 18:27 Follow up: Response: Temperature is decreased bp 18:15 Drug: Rocephin (cefTRIAXone) 2 grams Route: IV; Rate: calculated rate; Site: right bp forearm; Disposition: 10/20/20 19:08 Discharged to Home. Impression: Pyelonephritis. - Condition is Stable. - Discharge Instructions: Pyelonephritis, Adult. - Prescriptions for cefpodoxime 200 mg Oral Tablet - take 1 tablet by ORAL route every 12 hours for 10 days with food; 20 tablet. Zofran ODT 4 mg Oral tablet,disintegrating - place 1 tablet by TRANSLINGUAL route every 4-6 hours; 20 tablet. orphenadrine citrate 100 mg Oral Tablet Sustained Release - take 1 tablet by ORAL route 2 times per day As needed; 20 tablet. - Medication Reconciliation Form, Thank You Letter, Antibiotic Education, Prescription Opioid Use, Work release form form. - Follow up: Private Physician; When: 2 - 3 days; Reason: Recheck today's complaints, Continuance of care, Re-evaluation by your physician. Addendum: 10/23/2020 15:39 Co-signature as Attending Physician, Dominick Schofield MD. m a2 Signatures: Dispatcher [employer] Bucky Sandra, RN RN Ruben Gtz PA PA jmm Peltier, Brian, RN RN Dominick Hirsch MD MD ma2 Mj Polanco RN RN ll1 Corrections: (The following items were deleted from the chart) 03 14:52 14:32 CORONAVIRUS+MR.LAB.BRZ ordered. EDMS EDMS 14:53 14:33 Influenza Screen (A \T\ B)+BA.LAB.BRZ ordered. EDMS EDMS 19:30 19:08 10/20/2020 19:08 Discharged to Home. Impression: Pyelonephritis. Condition is sg Stable. Forms are Work release form, Medication Reconciliation Form, Thank You Letter, Antibiotic Education, Prescription Opioid Use. Follow up: Private Physician; When: 2 - 3 days; Reason: Recheck today's complaints, Continuance of care, Re-evaluation by your physician. gina
[2020-10-20 19:35] VITALS: TEMP 101.2
[2020-10-20 19:36] VITALS: O2SAT 99
[2020-10-20 19:37] VITALS: BP 131/56
== END 2020-10-20 19:30 | disposition home or self-care (01) ==
LOC: ER 13:35
DX: N12 Tubulo-interstitial nephritis, not specified as acute or chronic (principal); Z20.822 Contact with and (suspected) exposure to COVID-19; Z88.5 Allergy status to narcotic agent
CPT/HCPCS: 85025; 80048; 36415; 81025; 80076; 81003; 83690; 0240U; 74177; Q9967; J0696; J7030; J2405; 96374; 96375; 99284

== ENCOUNTER 2023-11-23 16:57 | Emergency (ER) | payer OTHER ==
--- OUTSIDE RECORDS SUMMARY | 2023-11-23 17:02 | XMS REPORT | Continuity of Care Document ---
Author Name Unknown Address [address] [facility] [address] [place] [address] [facility] thconnect Address [address] [facility] [address] [place] [address] Care Team Providers Care Community Board Member Name Role Phone PCP, PATIENT DOES NOT HAVE A Primary Care Physic hiro Unavailable BATSHEVA SULLIVAN Attending Clinician Unavailable BATSHEVA SULLIVAN Attending Clinician Unavailable OXANA WILLIS Attending Clinician Unavail able Akinrandy WHOxana HOOD Attending Clinician + BHARGAV MAYER Attending Clinician Unavailable BHARGAV MAYER Attending Clinician Unavailable Ultrasound, [facility] Attending Clinician UnavailBhargav Sevilla MD Attending Clinician [phone] Jennifer Aiken Attending Clinician [phone] JUNIOR MELCHOR Attending Clinician Unavailable Provider, [facility] Attending Clinician Un available Michael Fernandes DO Attending Clinician [phone] Meg Gotti Attending Clinician [phone] MEG BYRD Attending Clinician Unavailabl e Doctor Unassigned, [place] Attending Clinician U navailable Payers Payer Name Policy Type Policy Number Effective Date Expirati on Date Source [place] [employer] [id number] 2023 00:00:00 Problems Condition Name Condition Details Condition Category Status Onset Date Resolution Date Last Treatment Date Treating Clinician Comments Source Rubella non-immune status, antepartum Rubella non-immune status, antepartum Disease Active 10-23 00:00: 00 Overview: Formattin g of this note might be different from the original. Address pp [facility] Chlamydia infection affecting Chlamydia infection affecting Disease Active 4- 00:00: 00 Overview: Formattin g of this note might be different from the original. [place] at next visit [facility] Supervisio n of high-risk Supervisio n of high-risk Disease Active 10-19 00:00: 00 [facility] Multiparit y Multiparit y Disease Active 10-19 00:00: 00 [facility] Obesity in Obesity in Disease Active 10-19 00:00: 00 [facility] History of delivery History of delivery Disease Active 10-19 00:00: 00 Overview: Formattin g of this note might be different from the original. 2017 [facility] Trichomona l vulvovagin itis Trichomona l vulvovagin itis Disease Active 2-12 00:00: 00 [facility] Herpes, vulvar Herpes, vulvar Disease Active 2-04 00:00: 00 [facility] Herpes infection in Herpes infection in Disease Active 2-04 00:00: 00 Overview: Formattin g of this note might be different from the original. Start suppressi on at 36 weeks [facility] Other general counseling and advice for contracept karli management Other general counseling and advice for contracept karli management Disease Active 2-04 00:00: 00 [facility] IUD (intrauter ine device) in place IUD (intrauter ine device) in place Disease Active 2-04 00:00: 00 [facility] 36 weeks gestation of 36 weeks gestation of Disease Active 02-08 00:00: 00 [facility] Liveborn , of ayoub , born in hospital by vaginal delivery Liveborn infant, of ayoub , born in hospital by vaginal delivery Disease Active 02-08 00:00: 00 [facility] labor in third trimester labor in third trimester Disease Active 02-07 00:00: 00 [facility] BMI 26.0-26.9, adult BMI 26.0-26.9, adult Disease Active 03-31 00:00: 00 [facility] care and examinatio n of lactating mother care and examinatio n of lactating mother Disease Active 03-08 00:00: 00 [facility] Depression Depression Disease Active 03-08 00:00: 00 [facility] History of depression History of depression Disease Active 03-08 00:00: 00 [facility] Vaginal Pap smear with LGSIL Vaginal Pap smear with LGSIL Disease Active 08-24 00:00: 00 Overview: Formattin g of this note might be different from the original. Repeat 1 year [facility] Juvenile arthritis Juvenile arthritis Disease Active 08-16 00:00: 00 [facility] History of anxiety History of anxiety Disease Active 08-16 00:00: 00 [facility] test performed, confirmed test performed, confirmed Diagnosis Active [facility] Herpes simplex vulvovagin itis Herpes simplex vulvovagin itis Problem Active [facility] STI (sexually transmitte d infection) STI (sexually transmitte d infection) Problem Active [facility] IUD (intrauter ine device) in place IUD (intrauter ine device) in place Problem Active [facility] Allergies, Adverse Reactions, Alerts Allergy Name Allergy Type Status Severity Reaction(s) Onset Date Inactive Date Treating Clinician Comments Source Codeine Propensi ty to adverse reaction s Active Anaphylaxis 2014-07 00:00: 00 [facility] CODEINE DRUG INGREDI Active Anaphylaxis 2014-07 00:00: 00 [facility] Social History Social Habit Start Date Stop Date Quantity Comments Source ASSERTION 2023-08-05 00:00:00 [facility] Exposure to SARS-CoV-2 (event) Not sure [facility] intake 2023-11-17 00:00:00 2023-11-17 00:00:00 0 /d [facility] Tobacco use and exposure 2023-10-20 00:00:00 2023-10-20 00:00:00 Smokeless tobacco non-user [facility] History of Social function 2023-10-20 00:00:00 2023-10-20 00:00:00 [facility] Sex Assigned At 1995 00:00:00 1995 00:00:00 [facility] Smoking Status Start Date Stop Date Source Never smoked tobacco [facility] Medications Ordered Medication Name Filled Medication Name Start Date Stop Date Current Medication? Ordering Clinician Indication Dosage Frequency Signature (SIG) Comments Components Source PNV 67-iron ps-folate no.1-dha (VITAFOL ULTRA) 29 mg iron- 1 mg-200 mg Cap 11-16 00:00: 00 Yes [id number] 1{each} Take 1 Each by mouth in the morning. [facility] proMETHazin e 25 mg tablet 11-16 00:00: 00 Yes [id number] 25mg Take 1 tablet by mouth every 6 (six) hours as needed for Nausea and Vomiting (N/V). [facility] amoxicillin 500 mg capsule 10-26 00:00: 00 11-03 04:59 :00 Yes [id number] 01 500mg Take 1 capsule by mouth in the morning and 1 capsule at noon and 1 capsule in the evening. Do all this for 7 days. [facility] uuj63-dzdg- folic acid 29 mg iron- 1 mg per tablet 10-19 00:00: 00 Yes [id number] 1{tbl} Take 1 tablet by mouth in the morning. [facility] acyclovir 400 mg tablet 10-15 21:20: 35 10-15 00:00 :00 No 400mg Take 400 mg by mouth 3 (three) times daily. [facility] acyclovir 400 mg tablet 10-15 00:00: 00 Yes [id number] 400mg Take 1 tablet by mouth 2 (two) times daily. FOLLOW-UP WITH UNIT COORDINATOR FOR REFILLS [facility] metroNIDAZO LE 500 mg tablet 09-04 00:00: 00 09-05 05:59 :00 No [id number] 2000mg Take 4 tablets by mouth once now for 1 dose. [facility] fluconazole (DIFLUCAN) 150 mg tablet 09-04 00:00: 09-05 05:59 :00 No [id number] 150mg Take 1 tablet by mouth once now for 1 dose. [facility] acyclovir 400 mg tablet 08-27 17:19: 35 Yes 400mg Take 400 mg by mouth 3 (three) times daily. [facility] acyclovir 400 mg tablet 08-27 00:00: 00 10-15 00:00 :00 No [id number] 400mg Take 1 tablet by mouth 2 (two) times daily. [facility] sulfamethox azole-trime thoprim 800-160 mg per tablet 02-07 00:00: 00 Yes [id number] 1{tbl} Take 1 tablet by mouth every 12 (twelve) hours. [facility] mupirocin 2 % ointment 02-07 00:00: 00 Yes [id number] Apply to area(s) 3 (three) times daily. [facility] ondansetron (ZOFRAN ODT) 4 mg disintegrat ing tablet 12-19 00:00: 00 Yes [id number] 4mg Take 1 tablet by mouth every 8 (eight) hours as needed for Nausea and Vomiting (N/V). [facility] Acyclovir Acyclovir 10-18 00:00: 00 Yes Paul Wilder 1 tablet Common [facility] doxycycline 100 mg capsule 10-12 00:00: 00 Yes 100mg Take 1 capsule by mouth 2 (two) times daily. [facility] vitamin w/FA tablet 02-09 00:00: 00 Yes 1{tbl} Take 1 tablet by mouth daily. [facility] ibuprofen 600 mg tablet 02-09 00:00: 00 Yes 600mg Take 1 tablet by mouth every 6 (six) hours as needed for Pain (scale 1-3) or Pain (scale 4-6) (Pain). Take with food or milk. [facility] docusate calcium 240 mg capsule 02-09 00:00: 00 Yes 240mg Take 1 capsule by mouth once daily as needed for Constipati on. [facility] ferrous sulfate 325 mg (65 mg iron) tablet 02-09 00:00: 00 Yes 325mg Take 1 tablet by mouth 2 (two) times daily. [facility] vitamin w/FA tablet 02-09 00:00: 00 Yes 1{tbl} Take 1 tablet by mouth daily. [facility] Immunizations Ordered Immunization Name Filled Immunization Name Date Status Comments Source SARS-COV-2 COVID-19 PFIZER VACCINE 2020-11-05 00:00:00 Completed [facility] SARS-COV-2 COVID-19 PFIZER VACCINE 2020-10-15 00:00:00 Completed [facility] HPV9 2019-08-27 00:00:00 Completed [facility] Influenza Virus Vaccine Quad .5 mL IM 6+ MO 2019-08-27 00:00:00 Completed [facility] HPV9 2019-08-27 00:00:00 Completed [facility] Influenza Virus Vaccine Quad .5 mL IM 6+ MO 2019-08-27 00:00:00 Completed [facility] HPV9 2019-08-27 00:00:00 Completed [facility] Influenza Virus Vaccine Quad .5 mL IM 6+ MO 2019-08-27 00:00:00 Completed [facility] HPV9 2019-08-27 00:00:00 Completed [facility] Influenza Virus Vaccine Quad .5 mL IM 6+ MO 2019-08-27 00:00:00 Completed [facility] HPV9 2019-08-27 00:00:00 Completed [facility] Influenza Virus Vaccine Quad .5 mL IM 6+ MO 2019-08-27 00:00:00 Completed [facility] HPV9 2019-08-27 00:00:00 Completed [facility] Influenza Virus Vaccine Quad .5 mL IM 6+ MO 2019-08-27 00:00:00 Completed [facility] HPV9 2019-08-27 00:00:00 Completed [facility] Influenza Virus Vaccine Quad .5 mL IM 6+ MO 2019-08-27 00:00:00 Completed [facility] HPV9 2019-08-27 00:00:00 Completed [facility] Influenza Virus Vaccine Quad .5 mL IM 6+ MO 2019-08-27 00:00:00 Completed [facility] HPV9 2019-08-27 00:00:00 Completed [facility] Influenza Virus Vaccine Quad .5 mL IM 6+ MO 2019-08-27 00:00:00 Completed [facility] HPV9 2019-08-27 00:00:00 Completed [facility] Influenza Virus Vaccine Quad .5 mL IM 6+ MO 2019-08-27 00:00:00 Completed [facility] HPV9 2019-08-27 00:00:00 Completed [facility] Influenza Virus Vaccine Quad .5 mL IM 6+ MO 2019-08-27 00:00:00 Completed [facility] HPV9 2019-08-27 00:00:00 Completed [facility] Influenza Virus Vaccine Quad .5 mL IM 6+ MO 2019-08-27 00:00:00 Completed [facility] HPV9 2019-08-27 00:00:00 Completed [facility] Influenza Virus Vaccine Quad .5 mL IM 6+ MO 2019-08-27 00:00:00 Completed [facility] HPV9 2019-08-27 00:00:00 Completed [facility] Influenza Virus Vaccine Quad .5 mL IM 6+ MO 2019-08-27 00:00:00 Completed [facility] HPV9 2019-08-27 00:00:00 Completed [facility] Influenza Virus Vaccine Quad .5 mL IM 6+ MO 2019-08-27 00:00:00 Completed [facility] HPV9 2019-08-27 00:00:00 Completed [facility] Influenza Virus Vaccine Quad .5 mL IM 6+ MO 2019-08-27 00:00:00 Completed [facility] HPV9 2019-08-27 00:00:00 Completed [facility] Influenza Virus Vaccine Quad .5 mL IM 6+ MO 2019-08-27 00:00:00 Completed [facility] Tdap 2015-12-15 00:00:00 Completed [facility] Tdap 2015-12-15 00:00:00 Completed [facility] Tdap 2015-12-15 00:00:00 Completed [facility] Tdap 2015-12-15 00:00:00 Completed [facility] Tdap 2015-12-15 00:00:00 Completed [facility] Tdap 2015-12-15 00:00:00 Completed [facility] Tdap 2015-12-15 00:00:00 Completed [facility] TDAP 2015-12-15 00:00:00 Completed [facility] TDAP 2015-12-15 00:00:00 Completed [facility] TDAP 2015-12-15 00:00:00 Completed [facility] TDAP 2015-12-15 00:00:00 Completed [facility] TDAP 2015-12-15 00:00:00 Completed [facility] TDAP 2015-12-15 00:00:00 Completed [facility] TDAP 2015-12-15 00:00:00 Completed [facility] TDAP 2015-12-15 00:00:00 Completed [facility] Tdap 2015-12-15 00:00:00 Completed [facility] Tdap 2015-12-15 00:00:00 Completed [facility] Tdap 2015-12-15 00:00:00 Completed [facility] Influenza Virus Vaccine Quad IM 3+ YRS 2015-08-13 00:00:00 Completed [facility] Influenza Virus Vaccine Quad IM 3+ 2015-08-13 00:00:00 Completed [facility] Influenza Virus Vaccine Quad IM 3+ YRS 2015-08-13 00:00:00 Completed [facility] Influenza Virus Vaccine Quad IM 3+ YRS 2015-08-13 00:00:00 Completed [facility] Influenza Virus Vaccine Quad IM 3+ YRS 2015-08-13 00:00:00 Completed [facility] Influenza Virus Vaccine Quad IM 3+ YRS 2015-08-13 00:00:00 Completed [facility] Influenza Virus Vaccine Quad IM 3+ YRS 2015-08-13 00:00:00 Completed [facility] Influenza Virus Vaccine Quad IM 3+ YRS 2015-08-13 00:00:00 Completed [facility] Influenza Virus Vaccine Quad IM 3+ YRS 2015-08-13 00:00:00 Completed [facility] Influenza Virus Vaccine Quad IM 3+ YRS 2015-08-13 00:00:00 Completed [facility] Influenza Virus Vaccine Quad IM 3+ YRS 2015-08-13 00:00:00 Completed [facility] Influenza Virus Vaccine Quad IM 3+ YRS 2015-08-13 00:00:00 Completed [facility] Influenza Virus Vaccine Quad IM 3+ YRS 2015-08-13 00:00:00 Completed [facility] Influenza Virus Vaccine Quad IM 3+ YRS 2015-08-13 00:00:00 Completed [facility] Influenza Virus Vaccine Quad IM 3+ YRS 2015-08-13 00:00:00 Completed [facility] Influenza Virus Vaccine Quad IM 3+ YRS 2015-08-13 00:00:00 Completed [facility] Influenza Virus Vaccine Quad IM 3+ YRS 2015-08-13 00:00:00 Completed [facility] Influenza Virus Vaccine Quad IM 3+ YRS 2015-08-13 00:00:00 Completed [facility] Td 2006-07-24 00:00:00 Completed [facility] Td 2006-07-24 00:00:00 Completed [facility] Td 2006-07-24 00:00:00 Completed [facility] Td 2006-07-24 00:00:00 Completed [facility] Td 2006-07-24 00:00:00 Completed [facility] Td 2006-07-24 00:00:00 Completed [facility] Td 2006-07-24 00:00:00 Completed [facility] Td 2006-07-24 00:00:00 Completed [facility] Td 2006-07-24 00:00:00 Completed [facility] Td 2006-07-24 00:00:00 Completed [facility] Td 2006-07-24 00:00:00 Completed [facility] Td 2006-07-24 00:00:00 Completed [facility] Td 2006-07-24 00:00:00 Completed [facility] Td 2006-07-24 00:00:00 Completed [facility] Td 2006-07-24 00:00:00 Completed [facility] Td 2006-07-24 00:00:00 Completed [facility] Td 2006-07-24 00:00:00 Completed [facility] Td 2006-07-24 00:00:00 Completed [facility] TD, NOS Unknown Completed [facility] Influenza Virus Vaccine Quad IM 3+ YRS Unknown Completed [facility] TDAP Unknown Completed [facility] HPV9 Unknown Completed [facility] Influenza Virus Vaccine Quad .5 mL IM 6+ MO (FLUZONE/FLULAVAL/F LUARIX) Unknown Completed [facility] SARS-COV-2 COVID-19 PFIZER VACCINE Unknown Completed [facility] SARS-COV-2 COVID-19 PFIZER VACCINE Unknown Completed [facility] TD, NOS Unknown Completed [facility] Influenza Virus Vaccine Quad IM 3+ YRS Unknown Completed [facility] TDAP Unknown Completed [facility] HPV9 Unknown Completed [facility] Influenza Virus Vaccine Quad .5 mL IM 6+ MO (FLUZONE/FLULAVAL/F LUARIX) Unknown Completed [facility] SARS-COV-2 COVID-19 PFIZER VACCINE Unknown Completed [facility] SARS-COV-2 COVID-19 PFIZER VACCINE Unknown Completed [facility] TD, NOS Unknown Completed [facility] Influenza Virus Vaccine Quad IM 3+ YRS Unknown Completed [facility] TDAP Unknown Completed [facility] HPV9 Unknown Completed [facility] Influenza Virus Vaccine Quad .5 mL IM 6+ MO (FLUZONE/FLULAVAL/F LUARIX) Unknown Completed [facility] SARS-COV-2 COVID-19 PFIZER VACCINE Unknown Completed [facility] SARS-COV-2 COVID-19 PFIZER VACCINE Unknown Completed [facility] TD, NOS Unknown Completed [facility] Influenza Virus Vaccine Quad IM 3+ YRS Unknown Completed [facility] TDAP Unknown Completed [facility] HPV9 Unknown Completed [facility] Influenza Virus Vaccine Quad .5 mL IM 6+ MO (FLUZONE/FLULAVAL/F LUARIX) Unknown Completed [facility] SARS-COV-2 COVID-19 PFIZER VACCINE Unknown Completed [facility] SARS-COV-2 COVID-19 PFIZER VACCINE Unknown Completed [facility] TD, NOS Unknown Completed [facility] Influenza Virus Vaccine Quad IM 3+ YRS Unknown Completed [facility] TDAP Unknown Completed [facility] HPV9 Unknown Completed [facility] Influenza Virus Vaccine Quad .5 mL IM 6+ MO (FLUZONE/FLULAVAL/F LUARIX) Unknown Completed [facility] SARS-COV-2 COVID-19 PFIZER VACCINE Unknown Completed [facility] SARS-COV-2 COVID-19 PFIZER VACCINE Unknown Completed [facility] TD, NOS Unknown Completed [facility] Influenza Virus Vaccine Quad IM 3+ YRS Unknown Completed [facility] TDAP Unknown Completed [facility] HPV9 Unknown Completed [facility] Influenza Virus Vaccine Quad .5 mL IM 6+ MO (FLUZONE/FLULAVAL/F LUARIX) Unknown Completed [facility] SARS-COV-2 COVID-19 PFIZER VACCINE Unknown Completed [facility] SARS-COV-2 COVID-19 PFIZER VACCINE Unknown Completed [facility] TD, NOS Unknown Completed [facility] Influenza Virus Vaccine Quad IM 3+ YRS Unknown Completed [facility] TDAP Unknown Completed [facility] HPV9 Unknown Completed [facility] Influenza Virus Vaccine Quad .5 mL IM 6+ MO (FLUZONE/FLULAVAL/F LUARIX) Unknown Completed [facility] SARS-COV-2 COVID-19 PFIZER VACCINE Unknown Completed [facility] SARS-COV-2 COVID-19 PFIZER VACCINE Unknown Completed [facility] TD, NOS Unknown Completed [facility] Influenza Virus Vaccine Quad IM 3+ YRS Unknown Completed [facility] TDAP Unknown Completed [facility] HPV9 Unknown Completed [facility] Influenza Virus Vaccine Quad .5 mL IM 6+ MO (FLUZONE/FLULAVAL/F LUARIX) Unknown Completed [facility] SARS-COV-2 COVID-19 PFIZER VACCINE Unknown Completed [facility] SARS-COV-2 COVID-19 PFIZER VACCINE Unknown Completed [facility] TD, NOS Unknown Completed [facility] Influenza Virus Vaccine Quad IM 3+ YRS Unknown Completed [facility] TDAP Unknown Completed [facility] HPV9 Unknown Completed [facility] Influenza Virus Vaccine Quad .5 mL IM 6+ MO (FLUZONE/FLULAVAL/F LUARIX) Unknown Completed [facility] SARS-COV-2 COVID-19 PFIZER VACCINE Unknown Completed [facility] SARS-COV-2 COVID-19 PFIZER VACCINE Unknown Completed [facility] TD, NOS Unknown Completed [facility] Influenza Virus Vaccine Quad IM 3+ YRS Unknown Completed [facility] TDAP Unknown Completed [facility] HPV9 Unknown Completed [facility] Influenza Virus Vaccine Quad .5 mL IM 6+ MO (FLUZONE/FLULAVAL/F LUARIX) Unknown Completed [facility] SARS-COV-2 COVID-19 PFIZER VACCINE Unknown Completed [facility] SARS-COV-2 COVID-19 PFIZER VACCINE Unknown Completed [facility] TD, NOS Unknown Completed [facility] Influenza Virus Vaccine Quad IM 3+ YRS Unknown Completed [facility] TDAP Unknown Completed [facility] HPV9 Unknown Completed [facility] Influenza Virus Vaccine Quad .5 mL IM 6+ MO (FLUZONE/FLULAVAL/F LUARIX) Unknown Completed [facility] SARS-COV-2 COVID-19 PFIZER VACCINE Unknown Completed [facility] SARS-COV-2 COVID-19 PFIZER VACCINE Unknown Completed [facility] TD, NOS Unknown Completed [facility] Influenza Virus Vaccine Quad IM 3+ YRS Unknown Completed [facility] TDAP Unknown Completed [facility] HPV9 Unknown Completed [facility] Influenza Virus Vaccine Quad .5 mL IM 6+ MO (FLUZONE/FLULAVAL/F LUARIX) Unknown Completed [facility] SARS-COV-2 COVID-19 PFIZER VACCINE Unknown Completed [facility] SARS-COV-2 COVID-19 PFIZER VACCINE Unknown Completed [facility] TD, NOS Unknown Completed [facility] Influenza Virus Vaccine Quad IM 3+ YRS Unknown Completed [facility] TDAP Unknown Completed [facility] HPV9 Unknown Completed [facility] Influenza Virus Vaccine Quad .5 mL IM 6+ MO (FLUZONE/FLULAVAL/F LUARIX) Unknown Completed [facility] SARS-COV-2 COVID-19 PFIZER VACCINE Unknown Completed [facility] SARS-COV-2 COVID-19 PFIZER VACCINE Unknown Completed [facility] TD, NOS Unknown Completed [facility] Influenza Virus Vaccine Quad IM 3+ YRS Unknown Completed [facility] TDAP Unknown Completed [facility] HPV9 Unknown Completed [facility] Influenza Virus Vaccine Quad .5 mL IM 6+ MO (FLUZONE/FLULAVAL/F LUARIX) Unknown Completed [facility] SARS-COV-2 COVID-19 PFIZER VACCINE Unknown Completed [facility] SARS-COV-2 COVID-19 PFIZER VACCINE Unknown Completed [facility] TD, NOS Unknown Completed [facility] Influenza Virus Vaccine Quad IM 3+ YRS Unknown Completed [facility] TDAP Unknown Completed [facility] HPV9 Unknown Completed [facility] Influenza Virus Vaccine Quad .5 mL IM 6+ MO (FLUZONE/FLULAVAL/F LUARIX) Unknown Completed [facility] SARS-COV-2 COVID-19 PFIZER VACCINE Unknown Completed [facility] SARS-COV-2 COVID-19 PFIZER VACCINE Unknown Completed [facility] TD, NOS Unknown Completed [facility] Influenza Virus Vaccine Quad IM 3+ YRS Unknown Completed [facility] TDAP Unknown Completed [facility] HPV9 Unknown Completed [facility] Influenza Virus Vaccine Quad .5 mL IM 6+ MO (FLUZONE/FLULAVAL/F LUARIX) Unknown Completed [facility] SARS-COV-2 COVID-19 PFIZER VACCINE Unknown Completed [facility] SARS-COV-2 COVID-19 PFIZER VACCINE Unknown Completed [facility] TD, NOS Unknown Completed [facility] Influenza Virus Vaccine Quad IM 3+ YRS Unknown Completed [facility] TDAP Unknown Completed [facility] HPV9 Unknown Completed [facility] Influenza Virus Vaccine Quad .5 mL IM 6+ MO (FLUZONE/FLULAVAL/F LUARIX) Unknown Completed [facility] SARS-COV-2 COVID-19 PFIZER VACCINE Unknown Completed [facility] SARS-COV-2 COVID-19 PFIZER VACCINE Unknown Completed [facility] TD, NOS Unknown Completed [facility] Influenza Virus Vaccine Quad IM 3+ YRS Unknown Completed [facility] TDAP Unknown Completed [facility] HPV9 Unknown Completed [facility] Influenza Virus Vaccine Quad .5 mL IM 6+ MO (FLUZONE/FLULAVAL/F LUARIX) Unknown Completed [facility] SARS-COV-2 COVID-19 PFIZER VACCINE Unknown Completed [facility] SARS-COV-2 COVID-19 PFIZER VACCINE Unknown Completed [facility] TD, NOS Unknown Completed [facility] Influenza Virus Vaccine Quad IM 3+ YRS Unknown Completed [facility] TDAP Unknown Completed [facility] HPV9 Unknown Completed [facility] Influenza Virus Vaccine Quad .5 mL IM 6+ MO (FLUZONE/FLULAVAL/F LUARIX) Unknown Completed [facility] SARS-COV-2 COVID-19 PFIZER VACCINE Unknown Completed [facility] SARS-COV-2 COVID-19 PFIZER VACCINE Unknown Completed [facility] TD, NOS Unknown Completed [facility] Influenza Virus Vaccine Quad IM 3+ YRS Unknown Completed [facility] TDAP Unknown Completed [facility] HPV9 Unknown Completed [facility] Influenza Virus Vaccine Quad .5 mL IM 6+ MO (FLUZONE/FLULAVAL/F LUARIX) Unknown Completed [facility] SARS-COV-2 COVID-19 PFIZER VACCINE Unknown Completed [facility] SARS-COV-2 COVID-19 PFIZER VACCINE Unknown Completed [facility] TD, NOS Unknown Completed [facility] Influenza Virus Vaccine Quad IM 3+ YRS Unknown Completed [facility] TDAP Unknown Completed [facility] HPV9 Unknown Completed [facility] Influenza Virus Vaccine Quad .5 mL IM 6+ MO (FLUZONE/FLULAVAL/F LUARIX) Unknown Completed [facility] SARS-COV-2 COVID-19 PFIZER VACCINE Unknown Completed [facility] SARS-COV-2 COVID-19 PFIZER VACCINE Unknown Completed [facility] Vital Signs Vital Name Observation Time Observation Value Comments S louann Systolic blood pressure 2023-11-17 14:59:00 130 mm[Hg] [facility] Diastolic blood pressure 2023-11-17 14:59:00 72 mm[Hg] [facility] Heart rate 2023-11-17 14:59:00 82 /min [facility] Body temperature 2023-11-17 14:59:00 36.39 Deborah [facility] Respiratory rate 2023-11-17 14:59:00 18 /min [facility] Body height 2023-11-17 14:59:00 154.9 cm [facility] Body weight 2023-11-17 14:59:00 83.326 kg [facility] BMI 2023-11-17 14:59:00 34.71 kg/m2 [facility] Systolic blood pressure 2023-10-20 13:18:00 126 mm[Hg] [facility] Diastolic blood pressure 2023-10-20 13:18:00 69 mm[Hg] [facility] Heart rate 2023-10-20 13:18:00 71 /min [facility] Body temperature 2023-10-20 13:18:00 36.61 Deborah [facility] Respiratory rate 2023-10-20 13:18:00 17 /min [facility] Body height 2023-10-20 13:18:00 154.9 cm [facility] Body weight 2023-10-20 13:18:00 84.823 kg [facility] BMI 2023-10-20 13:18:00 35.33 kg/m2 [facility] Systolic blood pressure 2020-10-15 20:46:00 128 mm[Hg] [facility] Diastolic blood pressure 2020-10-15 20:46:00 85 mm[Hg] [facility] Heart rate 2020-10-15 20:46:00 66 /min [facility] Body temperature 2020-10-15 20:46:00 36.5 Deborah [facility] Respiratory rate 2020-10-15 20:46:00 18 /min [facility] Body height 2020-10-15 20:46:00 154.9 cm [facility] Body weight 2020-10-15 20:46:00 73.483 kg [facility] BMI 2020-10-15 20:46:00 30.61 kg/m2 [facility] Oxygen saturation in Arterial blood by Pulse oximetry 2020-10-15 20:46:00 98 /min [facility] Systolic blood pressure 2020-10-15 20:46:00 128 mm[Hg] [facility] Diastolic blood pressure 2020-10-15 20:46:00 85 mm[Hg] [facility] Heart rate 2020-10-15 20:46:00 66 /min [facility] Body temperature 2020-10-15 20:46:00 36.5 Deborah [facility] Respiratory rate 2020-10-15 20:46:00 18 /min [facility] Body height 2020-10-15 20:46:00 154.9 cm [facility] Body weight 2020-10-15 20:46:00 73.483 kg [facility] BMI 2020-10-15 20:46:00 30.61 kg/m2 [facility] Oxygen saturation in Arterial blood by Pulse oximetry 2020-10-15 20:46:00 98 /min [facility] Systolic blood pressure 2020-05-13 19:52:00 132 mm[Hg] [facility] Diastolic blood pressure 2020-05-13 19:52:00 86 mm[Hg] [facility] Heart rate 2020-05-13 19:52:00 76 /min [facility] Body temperature 2020-05-13 19:52:00 36.56 Deborah [facility] Respiratory rate 2020-05-13 19:52:00 16 /min [facility] Body height 2020-05-13 19:52:00 154.9 cm [facility] Body weight 2020-05-13 19:52:00 76.658 kg [facility] BMI 2020-05-13 19:52:00 31.93 kg/m2 [facility] Systolic blood pressure 2020-05-13 19:52:00 132 mm[Hg] [facility] Diastolic blood pressure 2020-05-13 19:52:00 86 mm[Hg] [facility] Heart rate 2020-05-13 19:52:00 76 /min [facility] Body temperature 2020-05-13 19:52:00 36.56 Deborah [facility] Respiratory rate 2020-05-13 19:52:00 16 /min [facility] Body height 2020-05-13 19:52:00 154.9 cm [facility] Body weight 2020-05-13 19:52:00 76.658 kg [facility] BMI 2020-05-13 19:52:00 31.93 kg/m2 [facility] Systolic blood pressure 2019-08-27 17:04:00 112 mm[Hg] [place] [facility] Diastolic blood pressure 2019-08-27 17:04:00 76 mm[Hg] [place] [facility] Heart rate 2019-08-27 17:04:00 53 /min [facility] Body temperature 2019-08-27 17:04:00 36.67 Deborah [facility] Respiratory rate 2019-08-27 17:04:00 16 /min [facility] Body height 2019-08-27 17:04:00 154.9 cm [facility] Body weight 2019-08-27 17:04:00 80.4 kg [facility] BMI 2019-08-27 17:04:00 33.49 kg/m2 [facility] Procedures Procedure Date / Time Performed Performing Clinicia n Source POCT URINALYSIS 2023-11-17 15:01:00 Oxana Willis [facility] SECOND AND THIRD TRIMESTER ULTRASOUND 2023-10-27 19:49:46 Oxana Willis [facility] POCT URINALYSIS W/O SPECIFIC GRAVITY 2023-10-20 13:14:00 Oxana Willis [facility] POCT TEST 2023-10-20 13:13:00 Semaj Willis [facility] DISCLOSURE AND CONSENT, MEDICAL AND SURGICAL PROCEDURES 2020-05-13 05:01:00 Doctor Unassigned, [place] [facility] REFERRAL- REQUEST/RESPONSE 2020-05-05 05:01:00 Doctor Unassigned, [place] [facility] GARDASIL 9 (HPV 9V) VACCINE 2019-08-27 17:25:50 Oxana Willis [facility] FLU VACC ([id number]), 6+ MONTHS, IM, QUAD 2019-08-27 17:25:50 Oxana Willis [facility] ASSIGNMENT OF BENEFITS 2019-08-27 16:29:37 Docto r Unassigned, [place] [facility] Encounters Start Date/Time End Date/Time Encounter Type Admission Type Attending Clinicians Care Facility Care Department Encounter ID Source 2023-12-12 14:00:00 2023-12-12 14:00:00 Outpatient P [facility] [id number] [facility] 2023-11-17 09:45:00 2023-11-17 10:56:06 Outpatient R OXANA WILLIS [facility] [id number] [facility] 2023-11-17 09:45:00 2023-11-17 10:56:06 Routine Visit Oxana Willis [facility] UNIT COORDINATOR [facility] 1.840.114 350.1.13.10 4.2.7.2.686 [id number] [facility] 2023-10-27 14:00:00 2023-10-27 14:17:19 Outpatient P BHARGAV MAYER KARIN [facility] [id number] [facility] 2023-10-27 14:00:00 2023-10-27 14:17:19 Electronic Component Processor Visit Ultrasound, Bhargav Winters [facility] UNIT COORDINATOR [facility] 1.840.114 350.1.13.10 4.2.7.2.686 [id number] [facility] 2023-10-27 00:00:00 2023-10-27 00:00:[address] [facility] UNIT COORDINATOR [facility] CHILD [facility] 1..840.114 350.1.13.10 4.2.7.2.686 [id number] [facility] 2023-10-27 00:00:00 2023-10-27 00:00:[address] [facility] UNIT COORDINATOR [facility] 1.2.840.114 350.1.13.10 4.2.7.2.686 [id number] [facility] 2023-10-25 00:00:00 2023-10-25 00:00:[address] [facility] UNIT COORDINATOR [facility] 1.2.840.114 350.1.13.10 4.2.7.2.686 [id number] [facility] 2023-10-24 00:00:00 2023-10-24 00:00:[address] [facility] UNIT COORDINATOR [facility] 1.2.840.114 350.1.13.10 4.2.7.2.686 [id number] [facility] 2023-10-24 00:00:00 2023-10-24 00:00:[address] [facility] UNIT COORDINATOR [facility] 1.2.840.114 350.1.13.10 4.2.7.2.686 [id number] [facility] 2023-10-20 07:45:00 2023-10-20 09:39:01 Outpatient R OXANA WILLIS [facility] [id number] [facility] 2023-10-20 07:45:00 2023-10-20 09:39:01 Initial Visit Oxana Willis [facility] UNIT COORDINATOR [facility] 1.2.840.114 350.1.13.10 4.2.7.2.686 [id number] [facility] 2020-11-10 00:00:00 2020-11-10 00:00:[facility] ..114 350.1.13.10 4.2.7.2.686 [id number] [facility] 2020-11-05 16:20:00 2020-11-05 16:20:00 Outpatient JUNIOR KRISHNA [facility] [id number] [facility] 2020-10-15 15:36:50 2020-10-15 16:19:19 Urgent Care Provider, [facility] [address] 1.0.114 350.1.13.10 4.2.7.2.686 [id number] [facility] 2020-10-15 15:36:50 2020-10-15 16:19:19 Urgent Care Provider, [facility] Office [address] 1..114 350.1.13.10 4.2.7.2.686 [id number] 2020-10-15 16:00:00 2020-10-15 16:00:00 Outpatient JUNIOR KRISHNA [facility] [id number] [facility] 2020-10-13 00:00:00 2020-10-13 00:00:00 Patient Outreach Michael Fernandes [facility] 1.840.114 350.1.13.10 4.2.7.2.686 [id number] [facility] 2020-10-13 00:00:00 2020-10-13 00:00:00 Patient Outreach Michael Fernandes [facility] 1.840.114 350.1.13.10 4.2.7.2.686 [id number] 2020-09-23 00:00:00 2020-09-23 00:00:[address] [facility] UNIT COORDINATOR [facility] 1.2.840.114 350.1.13.10 4.2.7.2.686 [id number] [facility] 2020-09-23 00:00:00 2020-09-23 00:00:[address] [facility] UNIT COORDINATOR [facility] 1.2.840.114 350.1.13.10 4.2.7.2.686 [id number] 2020-05-13 14:43:30 2020-05-13 15:17:12 Office Visit Meg Byrd [facility] UNIT COORDINATOR [facility] 1.2.840.114 350.1.13.10 4.2.7.2.686 [id number] [facility] 2020-05-13 14:43:30 2020-05-13 15:17:12 Office Visit Meg Byrd [facility] 1.2.840.114 350.1.13.10 4.2.7.2.686 [id number] 2020-05-13 15:00:00 2020-05-13 15:00:00 Outpatient R MEG BYRD [facility] [id number] [facility] 2020-05-13 00:00:00 2020-05-13 00:00:00 Orders Only Doctor Unassigned, [place] [facility] 1.2.840.114 350.1.13.10 4.2.7.2.686 [id number] [facility] 2020-05-13 00:00:00 2020-05-13 00:00:00 Orders Only Doctor Unassigned, [place] [facility] 1.2.840.114 350.1.13.10 4.2.7.2.686 [id number] 2020-05-05 00:00:00 2020-05-05 00:00:00 Orders Only Doctor Unassigned, [place] [facility] 1.2.840.114 350.1.13.10 4.2.7.2.686 [id number] [facility] 2020-05-05 00:00:00 2020-05-05 00:00:00 Orders Only Doctor Unassigned, [place] [facility] 1.2.840.114 350.1.13.10 4.2.7.2.686 [id number] 2019-10-29 10:30:00 2019-10-29 10:30:00 Outpatient R OXANA WILLIS [facility] [id number] [facility] 2019-09-06 00:00:00 2019-09-06 00:00:[address] [facility] UNIT COORDINATOR [facility] 1.2.840.114 350.1.13.10 4.2.7.2.686 [id number] [facility] 2019-09-04 00:00:00 2019-09-04 00:00:[address] [facility] UNIT COORDINATOR [facility] 1.2.840.114 350.1.13.10 4.2.7.2.686 [id number] [facility] 2019-08-27 10:35:57 2019-08-27 12:04:56 Office Visit Oxana Willis [facility] UNIT COORDINATOR [facility] 1.2.840.114 350.1.13.10 4.2.7.2.686 [id number] [facility] 2019-08-27 00:00:00 2019-08-27 00:00:00 Orders Only Doctor Unassigned, [place] [facility] 1.2.840.114 350.1.13.10 4.2.7.2.686 [id number] [facility] 2017-12-08 11:00:00 2017-12-08 11:00:00 Outpatient [facility] [id number] [facility] 2017-10-18 11:15:00 2017-10-18 11:15:00 Outpatient [facility] [id number] [facility] Results Test Description Test Time Test Comments Results Result Co mments Source [facility] URINALYSIS W SPECIFIC [id number] 15:01:00* Test Item Value Reference Range Interpretation Comme nts POCT U SP GRAV (test code = 3255) . 1.005-1.025 POCT PH U (test code = 3254) . 5-8 POCT U LEUK EST (test code = 3263) . Negative - N egative POCT U NIT (test code = 3262) . Negative - Negati ve POCT U PROT (test code = 3259) trace Negative - Negat karli POCT U GLU (test code = 3256) 50 Negative - Negati ve POCT U KETONE (test code = 3258) . Negative - Neg ative POCT U UROBILI (test code = 3260) . 0.2-1 POCT U BILI (test code = 3261) . Negative - Negat karli POCT U BLD (test code = 3257) . Negative - Negati ve POCT U COLOR (test code = 3266) POCT U APPEAR (test code = 3267) [facility] URINALYSIS W SPECIFIC [id number] 15:01:00* Test Item Value Reference Range Interpretation Comme nts POCT U SP GRAV (test code = 3255) . 1.005-1.025 POCT PH U (test code = 3254) . 5-8 POCT U LEUK EST (test code = 3263) . Negative - N egative POCT U NIT (test code = 3262) . Negative - Negati ve POCT U PROT (test code = 3259) trace Negative - Negat karli POCT U GLU (test code = 3256) 50 Negative - Negati ve POCT U KETONE (test code = 3258) . Negative - Neg ative POCT U UROBILI (test code = 3260) . 0.2-1 POCT U BILI (test code = 3261) . Negative - Negat karli POCT U BLD (test code = 3257) . Negative - Negati ve POCT U COLOR (test code = 3266) POCT U APPEAR (test code = 3267) [facility] URINALYSIS W SPECIFIC [id number] 15:01:00* Test Item Value Reference Range Interpretation Comme nts POCT U SP GRAV (test code = 3255) . 1.005-1.025 POCT PH U (test code = 3254) . 5-8 POCT U LEUK EST (test code = 3263) . Negative - N egative POCT U NIT (test code = 3262) . Negative - Negati ve POCT U PROT (test code = 3259) trace Negative - Negat karli POCT U GLU (test code = 3256) 50 Negative - Negati ve POCT U KETONE (test code = 3258) . Negative - Neg ative POCT U UROBILI (test code = 3260) . 0.2-1 POCT U BILI (test code = 3261) . Negative - Negat karli POCT U BLD (test code = 3257) . Negative - Negati ve POCT U COLOR (test code = 3266) POCT U APPEAR (test code = 3267) [facility] Urinalysis w/o Specific [id number] 13:14:00* Test Item Value Reference Range Interpretation Comme nts POCT PH U (test code = 3254) 6 mg/dl 5-8 POCT U LEUK EST (test code = 3263) neg Negative - Negative POCT U NIT (test code = 3262) neg Negative - Negati ve POCT U PROT (test code = 3259) trace Negative - Negat karli POCT U GLU (test code = 3256) neg Negative - Negati ve POCT U KETONE (test code = 3258) 1+ Negative - Neg ative POCT U BLD (test code = 3257) neg Negative - Negati ve [facility] Urinalysis w/o Specific [id number] 13:14:00* Test Item Value Reference Range Interpretation Comme nts POCT PH U (test code = 3254) 6 mg/dl 5-8 POCT U LEUK EST (test code = 3263) neg Negative - Negative POCT U NIT (test code = 3262) neg Negative - Negati ve POCT U PROT (test code = 3259) trace Negative - Negat karli POCT U GLU (test code = 3256) neg Negative - Negati ve POCT U KETONE (test code = 3258) 1+ Negative - Neg ative POCT U BLD (test code = 3257) neg Negative - Negati ve [facility] Urinalysis w/o Specific [id number] 13:14:00* Test Item Value Reference Range Interpretation Comme nts POCT PH U (test code = 3254) 6 mg/dl 5-8 POCT U LEUK EST (test code = 3263) neg Negative - Negative POCT U NIT (test code = 3262) neg Negative - Negati ve POCT U PROT (test code = 3259) trace Negative - Negat karli POCT U GLU (test code = 3256) neg Negative - Negati ve POCT U KETONE (test code = 3258) 1+ Negative - Neg ative POCT U BLD (test code = 3257) neg Negative - Negati ve [facility] Urinalysis w/o Specific [id number] 13:14:00* Test Item Value Reference Range Interpretation Comme nts POCT PH U (test code = 3254) 6 mg/dl 5-8 POCT U LEUK EST (test code = 3263) neg Negative - Negative POCT U NIT (test code = 3262) neg Negative - Negati ve POCT U PROT (test code = 3259) trace Negative - Negat karli POCT U GLU (test code = 3256) neg Negative - Negati ve POCT U KETONE (test code = 3258) 1+ Negative - Neg ative POCT U BLD (test code = 3257) neg Negative - Negati ve [facility] Urinalysis w/o Specific [id number] 13:14:00* Test Item Value Reference Range Interpretation Comme nts POCT PH U (test code = 3254) 6 mg/dl 5-8 POCT U LEUK EST (test code = 3263) neg Negative - Negative POCT U NIT (test code = 3262) neg Negative - Negati ve POCT U PROT (test code = 3259) trace Negative - Negat karli POCT U GLU (test code = 3256) neg Negative - Negati ve POCT U KETONE (test code = 3258) 1+ Negative - Neg ative POCT U BLD (test code = 3257) neg Negative - Negati ve [facility] Urinalysis w/o Specific [id number] 13:14:00* Test Item Value Reference Range Interpretation Comme nts POCT PH U (test code = 3254) 6 mg/dl 5-8 POCT U LEUK EST (test code = 3263) neg Negative - Negative POCT U NIT (test code = 3262) neg Negative - Negati ve POCT U PROT (test code = 3259) trace Negative - Negat karli POCT U GLU (test code = 3256) neg Negative - Negati ve POCT U KETONE (test code = 3258) 1+ Negative - Neg ative POCT U BLD (test code = 3257) neg Negative - Negati ve [facility] Urinalysis w/o Specific [id number] 13:14:00* Test Item Value Reference Range Interpretation Comme nts POCT PH U (test code = 3254) 6 mg/dl 5-8 POCT U LEUK EST (test code = 3263) neg Negative - Negative POCT U NIT (test code = 3262) neg Negative - Negati ve POCT U PROT (test code = 3259) trace Negative - Negat karli POCT U GLU (test code = 3256) neg Negative - Negati ve POCT U KETONE (test code = 3258) 1+ Negative - Neg ative POCT U BLD (test code = 3257) neg Negative - Negati ve [facility] [id number] 13:13:00* Test Item Value Reference Range Interpretation Comme nts POCT PREG (test code = 1605) Positive On board controls acceptable with C Line (test code = 3574) Yes POCT PREG LOT # (test code = 3575) POCT PREG TEST DATE ( test code = 3576) [facility] [id number] 13:13:00* Test Item Value Reference Range Interpretation Comme nts POCT PREG (test code = 1605) Positive On board controls acceptable with C Line (test code = 3574) Yes POCT PREG LOT # (test code = 3575) PO[facility]REG TEST DATE ( test code = 3576) [id number] 13:13:00* Test Item Value Reference Range Interpretation Comme nts POCT PREG (test code = 1605) Positive On board controls acceptable with C Line (test code = 3574) Yes POCT PREG LOT # (test code = 3575) POCT PREG TEST DATE ( test code = 3576) [facility] [id number] 13:13:00* Test Item Value Reference Range Interpretation Comme nts POCT PREG (test code = 1605) Positive On board controls acceptable with C Line (test code = 3574) Yes POCT PREG LOT # (test code = 3575) POCT PREG TEST DATE ( test code = 3576) [facility] 13:13:00* Test Item Value Reference Range Interpretation Comme nts POCT PREG (test code = 1605) Positive On board controls acceptable with C Line (test code = 3574) Yes POCT PREG LOT # (test code = 3575) POCT PREG TEST DATE ( test code = 3576) [facility] 13:13:00* Test Item Value Reference Range Interpretation Comme nts POCT PREG (test code = 1605) Positive On board controls acceptable with C Line (test code = 3574) Yes POCT PREG LOT # (test code = 3575) POCT PREG TEST DATE ( test code = 3576) [facility] Xmvv0386-54-34 13:13:00* Test Item Value Reference Range Interpretation Comme nts POCT PREG (test code = 1605) Positive On board controls acceptable with C Line (test code = 3574) Yes POCT PREG LOT # (test code = 3575) POCT PREG TEST DATE ( test code = 3576) [facility] Notes Date/Time Note Provider Source 2023-10-27 15:10:52 6z3Z80c3uVOBKIMJCV0U kqKIKNzcXn EHaaOGflG6ibmSQGPQ6l3MgGtc3gNP eORF4656-59-88O16:10:52Formatt ing of this note might be different from the original.Pt notified medication will be sent today. FEDERICO RAE RN 10/27/2023 3:11 PM 39721-9Ccetglukc encounter NylgDU9533-39-40K40:11:35Telep chato encounter NoteTXT1.2.840.028958.1.13.104 .2.7.2.008977|[id number] lable for patient tfcf35140-2UfykQGFXSWXDRNYBuxe atted C-CDA narrative [id number] Rodriguez RN[address] CyatVdszytlbgVqohovpruGXYR0651 700741YDPWTESOERKKXUOFBSXJKA87 14-11-045:11:351.2.840.83007 0.1.72.3.15|1.2.840.198291.1.1 3.104.2.7.2.727879_[id number] Federico Rae RN [facility] 2023-10-27 15:05:22 FmZsJkJdxfut5AAEdxHT tZMScRjNQr 4VgiNfxxRe+y4MZg4ZrHKocO+Usc/k gBy86209-58-07P60:05:22Formatt ing of this note might be different from the original.Copied from [facility] #[id number]. Topic: Clinical - Medical Advice>> Oct 27, 2023 3:04 PM Patient Sider Mechanic wrote:Patient returning missed call from the nurse. Thank you. 16562-2Zifwmzhqf encounter BdlfAQ5102-54-89B20:41:26Telep chato encounter NoteTXT1.2.840.635793.1.13.104 .2.7.2.055515|[id number] lable for patient ngaf96497-3QljaQVWRUPFBPXYQjlw atted C-CDA narrative [id number] [place] [address]TXTX[address] 750730KICEMLEERFYFAUNPNGYDHI52 14-11-045:41:261.2.840.43669 0.1.72.3.15|1.2.840.188991.1.1 3.104.2.7.2.727879_[id number] Samantha Beach [facility] 2023-10-27 12:49:43 QlCehiN+IvxXAcnLfv9G Spp/vH+EJ0 SxvWGQVWW+autteawXfbFu2o0tV8bd qHNc7654-64-25L32:49:43Formatt ing of this note might be different from the original.Copied from [facility] #[id number]. Topic: Clinical - Medical Advice>> Oct 27, 2023 12:48 PM Patient Sider Mechanic wrote:Gabi Thayer is a 28 year old female requesting call back states has not received rx that was to be sent 10/24. Please call [phone] once sentCV[id number] [place] [address] [facility] STREETPhone: Zqnjirikpneydb signed by Kalpana Rahman at 10/27/2023 12:50 PM GKO62521-3Pmwiyfmad encounter DiglLQ0399-55-21O47:50:30Telep chato encounter NoteTXT1.2.840.419015.1.13.104 .2.7.2.093669|[id number] lable for patient lojl63888-6YzavWNMWDKOBVXXJnyn atted C-CDA narrative ugag9205123Wbnot L Martinez[address]TXTX[address] 942799SSIAOQNFFZSWIMZDZIUNFO46 14-11-04T12:50:301.2.840.70453 0.1.72.3.15|1.2.840.489448.1.1 3.104.2.7.2.727879_[id number] Kalpana Rahman [facility] 2023-10-25 15:40:54 8BYfV3dmYcDNHWBHx1vj c5mzjZUE9d PbFi4T7XxVJhry2/JrctblCgv6Ghim U1G83691-67-53O53:40:54Formatt ing of this note might be different from the original.Notified the patient of her positive STI results CHlamydia.Notified the patient her medication has been sent to her pharmacy on file.Educated patient she should complete the entire course, advised patient to practice safe sex practices and to remain abstinent for at least 1-2 weeks post treatment.Patient declines to have partner treated.Offered std pamphlet for partner education. Patient declinedstd pamphlet to be mailed to partner.Advised patient on HIV testing if she has not recently been tested.Advised CHANDLER appointment in 3 months. Pt verbalized understanding.Cassie Be RN 10/25/23 3:42 PM 67997-7Pszhtaoqt encounter DuzfVA7183-20-68O62:42:25Telep chato encounter NoteTXT1.2.840.836027.1.13.104 .2.7.2.931419|[id number] lable for patient xyxx05579-8LzveUYFBKXZUYVDAolb atted C-CDA narrative [address] KvzvVnyhhvlyqLukmqiebzAVNM9021 586595IIGEDNCEVXEQIOKRWJEFAS79 14-11-02T15:42:251.2.840.59085 0.1.72.3.15|1.2.840.461966.1.1 3.104.2.7.2.727879_[id number] [facility] 2023-10-25 15:36:50 gblFEAb1W6ES+oaguKx1 OekQvIV20G 5ryt2Dk7UHh46JNIWQy2ig7o6NHuGU HXmU1228-86-01Q89:36:50Formatt ing of this note might be different from the original.Duplicate encounter.Cassie Be RN 10/25/23 3:36 PM 95093-4Uwebdrvjb encounter RsdyXE3748-35-15D60:37:11Telep chato encounter NoteTXT1.2.840.655391.1.13.104 .2.7.2.523785|[id number] [facility] igrc79662-6GjqbRHNBSSYDRJVUmvm atted C-CDA narrative text[address] DvgxBbpsvbrjmVbtjdmyxwERTX6606 167104WNNRAXAJWHIYIHFHSQFYNM03 14-11-025:37:111.2.840.68859 0.1.72.3.15|1.2.840.761315.1.1 3.104.2.7.2.727879_[id number] [facility] 2023-10-25 15:12:18 AJVLXDmY5TMA+zHok+7k CXNaOGnunp 3e7h/YfM9IfbSM7Xbsd8LyRb3RVKQb 1BWT1871-03-18L24:12:18Formatt ing of this note might be different from the original.Copied from [facility] #[id number]. Topic: Clinical - Results>> Oct 25, 2023 3:11 PM Patient Sider Mechanic wrote:Gabi Thayer is a 28 year old female returning missed call for results. Please call [phone] (home) 83830-4Jedyslczf encounter GqeqVO8274-26-30C35:12:33Telep chato encounter NoteTXT1.2.840.338198.1.13.104 .2.7.2.651428|[id number] lable for patient qszt70040-3DilsYSOHQGNRUAKYjec atted C-CDA narrative kjbr0857968Bnzpn L [address]vest[address]onTX[place] 833834THOJWGTAFXNBFOJEHNVNZZ21 14-11-02T15:12:331.2.840.29913 0.1.72.3.15|1.2.840.287295.1.1 3.104.2.7.2.727879_[id number] Kalpana Nicholas [facility] 2023-10-25 13:10:01 fTkhIJowT68AdNi2nuap hg3k5VbUGR FAn51RKrpXNynR3m2dTkCFdl1Leo5J JTUC0994-13-98V55:10:01Formatt ing of this note might be different from the original.2nd attempt to call patient, no answer, unable to leave . 15381-7Mnuxoexjl encounter PmhdEJ5397-43-80C98:10:30Telep chato encounter NoteTXT1.2.840.655781.1.13.104 .2.7.2.359684|[id number] lable for patient yckt83511-1TriiSYEHTROAKEJAwqh atted C-CDA narrative cqeq419555072Bafdxfob Garcia [address] 353457DFRRDYPHUUCEDHYTLXQEKR20 14-11-02T13:10:301.2.840.38155 0.1.72.3.15|1.2.840.779059.1.1 3.104.2.7.2.727879_[id number] Verenice Gregorio LVN [facility] 2023-10-25 09:22:09 obmiPPFyCvLsraV5jPFo 2ddVALJk+J w3Kiq3LYJrQQ99L55yC0SiI014DQDu WRXE7157-65-23V47:22:09Formatt ing of this note might be different from the original.Attempted to call patient, no answer, [place]. [address]-5Yzwakwjef encounter MjhgFH3634-43-31D81:22:22Telep chato encounter NoteTXT1.2.840.003699.1.13.104 .2.7.2.820640|[id number] lable for patient wdnc37217-0DyfaGDGMAOEZVYZJhpa atted C-CDA narrative demb968274560Rtgrwxph Jg [address] HrbaDgfqpwwlbBqraooltrQCMW0125 957952HILECWQCMOVVKDUFKVDRMD14 14-11-02T09:22:221.2.840.20056 0.1.72.3.15|1.2.840.318146.1.1 3.104.2.7.2.727879_[id number] Verenice Gregorio [facility] 2023-10-24 16:10:04 u1Sbf22sKanYbO1RukPm YKyafK3m6k w/96v32mG2/SV89PqOAA4FIdeKdzZ9 bbLU6018-19-56V93:10:04Formatt ing of this note might be different from the original.Please notify the patient of her positive STI results. Please notify the patient her medication has been sent to her pharmacy on file. She should complete the entire course.Please advise her on safe sex practices and to remain abstinent for at least 1-2 weeks post treatment. Her partner can be treated and tested per protocol. If she is not she will need a CHANDLER in 3 months, and advise her on HIV testing if she has not recently been tested.LUH Wallace 10/24/2023 4:11 PM 19331-7Hthnzoezm encounter XgyjVP7414-35-84X69:12:58Telep chato encounter NoteTXT1.2.840.785804.1.13.104 .2.7.2.957477|[id number] [facility] ysir86898-0CpzhTLBWYLPOUZXBazt atted C-CDA narrative textUT[address] UaxsPjhynrpupHorjncttfYMVF3377 185769DXWBVMMGBZYFLYFRWXBOQZ82 14-11-016:12:581.2.840.52117 0.1.72.3.15|1.2.840.860173.1.1 3.104.2.7.2.727879_[id number] [facility]"
[2023-11-23 17:54] LABS: Specific Gravity 1.005 (1.005-1.030)
[2023-11-23 17:55] LABS: Specific Gravity 1.005 (1.005-1.030); Sqamous Epithelial <5 /HPF (None Seen); Urine Bacteria <20 /HPF (<20); Urine Bilirubin NEGATIVE (Negative); Urine Blood Negative (Negative); Urine Clarity Turbid (Clear); Urine Color Colorless (Yellow); Urine Culture Reflex Order NOT NEEDED; Urine Glucose NEGATIVE (Negative); Urine Ketones 1+ (Negative); Urine Microscopic Reflex YN ORDER UMIC; Urine Nitrite NEGATIVE (Negative); Urine Protein NEGATIVE (Negative); Urine RBC <5 /HPF (None Seen); Urine Urobilinogen Normal (Normal); Urine WBC <5 /HPF (<5)
[2023-11-23 17:57] LABS: Absolute Monocytes 0.6 K/uL (0.1-1.3); Absolute Neutrophil 6.6 K/uL (1.8-8.0); Basophils % 0.5 % (0-1.3); Eosinophils % 0.5 % (0-4.4); Hematocrit 32.6 % (36.0-45.0); Hemoglobin 11.4 g/dL (12.0-15.0); Lymphocytes % 11.7 % (15.3-44.8); MCH 30.7 pg (27.0-35.0); MCHC 34.8 g/dL (32.0-36.0); MCV 88.1 fL (80-100); MPV 7.2 fL (7.6-11.3); Monocytes % 7.7 % (3.3-12.3); Neutrophils % 79.6 % (41.7-73.7); Platelets 398 thou/uL (152-406)
[2023-11-23 18:20] LABS: Anion Gap 9.4 mEq/L (5.0-15.0); Potassium 3.4 mEq/L (3.5-5.1)
--- NOTE | 2023-11-23 18:26 | RAD REPORT ---
EXAM DESCRIPTION: US - OB Limited - 11/23/2023 6:04 pm CLINICAL HISTORY: ABD CRAMPING, Cramping, pelvic pain COMPARISON: <Comparisons> FINDINGS: Amniotic fluid volume is within expected limits for gestational age. The placenta is grade I -2 and anterior. A single live 17 week gestation is noted. heart rate is 155 BPM, normal. A limited study was requested by the emergency room.
--- NOTE | 2023-11-23 18:46 | EDPHYS ---
Physician Documentation [facility] Name: Gabi Thayer Age: 28 yrs Sex: Female : 1995 Arrival Date: 11/23/2023 Time: 16:57 Bed 11 Private MD: ED Physician Irma Zheng HPI: 11/22 17:39 This 28 yrs old Female presents to ER via Ambulatory with complaints of 17 wks sb4 , Abdominal Cramping. 17:39 The patient presents to the emergency department with abdominal pain, of the left lower sb4 quadrant. The estimated gestational age is 17 weeks. course: care: private OB physician, Leakage of Fluid: none appreciated, Ultrasound: the patient had an ultrasound, which was normal, Risk/complications: no obvious risks or complications are appreciated. Previous pregnancies: in previous pregnancies patient has had vaginal delivery. Associated signs and symptoms: Pertinent negatives: dysuria, fever, ruptured membranes, vaginal bleeding, vaginal discharge. The patient has not experienced similar symptoms in the past. 17:41 LLQ pain that radiates around to left flank and down left leg today while on feet a sb4 long time. states she was considered "high risk" during her 2 previous pregnancies and was unable to work then. 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 - Infectious Disease History:: Denies. - Social history:: Smoking status: Patient denies any tobacco usage or history of. ROS: 17:39 Constitutional: Negative for fever, chills, and weight loss, sb4 17:39 : Positive for per HPI, 17:39 All other systems are negative, Exam: 11/23 00:14 Constitutional: This is a well developed, well nourished patient who is awake, alert, sb4 and in no acute distress. Head/Face: Normocephalic, atraumatic. Eyes: Extra-ocular motions intact. Periorbital areas with no swelling, redness, or edema. ENT: Mucous membranes moist. Cardiovascular: Regular rate and rhythm with a normal S1 and S2. Respiratory: Lungs have equal breath sounds bilaterally, clear to auscultation and percussion. No rales, rhonchi or wheezes noted. No increased work of breathing, no retractions or nasal flaring. Abdomen/GI: Soft, non-tender, no distension. Back: No spinal tenderness. No costovertebral tenderness. Full range of motion. Skin: Warm, dry with normal turgor. Normal color with no rashes, no lesions, and no evidence of cellulitis. MS/ Extremity: Pulses equal, no cyanosis. Neurovascular intact. Full, normal range of motion. Vital Signs: 11/22 17:16 BP 120 / 72; Pulse 95; Resp 18; Temp 98.2(O); Pulse Ox 99% ; Weight 82.55 kg; Height 5 db ft. 1 in. ; 17:16 Body Mass Index 34.39 (82.55 kg, 154.94 cm) db MDM: 17:04 Patient medically screened. sb4 18:46 Data reviewed: vital signs, nurses notes, lab test result(s), radiologic studies, and sb4 as a result, I will discharge patient. Counseling: I had a detailed discussion with the patient and/or guardian regarding the historical points, exam findings, and any diagnostic results supporting the discharge/admit diagnosis, lab results, radiology results, the need for outpatient follow up, an OB/Gyne specialist, to return to the emergency department if symptoms worsen or persist or if there are any questions or concerns that arise at home. 11/22 17:21 Order name: Basic Metabolic Panel; Complete Time: 18:21 sb4 11/22 17:21 Order name: CBC with Diff; Complete Time: 17:58 sb4 11/22 17:21 Order name: Test, Urine; Complete Time: 17:57 sb4 11/22 17:21 Order name: Quantitative Hcg; Complete Time: 18:21 sb4 11/22 17:21 Order name: Urinalysis w/ reflexes; Complete Time: 17:57 sb4 11/22 17:21 Order name: US OB Limited; Complete Time: 18:30 sb4 11/22 17:21 Order name: IV Saline Lock; Complete Time: 17:44 sb4 11/22 17:21 Order name: Labs collected and sent; Complete Time: 17:44 sb4 Administered Medications: No medications were administered Disposition: 20:27 STAFF ATTESTATION STATEMENT: I was immediately available onsite in the emergency sd2 department for consultation in the care of this patient. I did not see or examine this patient. Irma Zheng MD. Disposition Summary: 11/23/23 18:45 Discharge Ordered Notes: Location: Home sb4 Problem: new sb4 Symptoms: have improved sb4 Condition: Stable sb4 Diagnosis - Encounter for supervision of normal first , second trimester sb4 Followup: sb4 - With: Private Physician - When: As needed - Reason: Recheck today's complaints, Re-evaluation by your physician Discharge Instructions: - Discharge Summary Sheet sb4 - Abdominal Pain During , Accp-qs-Eezf sb4 Forms: - Patient Portal Instructions sb4 - Leadership Thank You Letter sb4 Signatures: Dispatcher [employer] Irma Archer MD MD wi2 Evie Tim, RN RN Patti Red PA-C PA-C sb4
--- NOTE | 2023-11-23 18:46 | ER ---
Nurse's Notes [facility] Name: Gabi Thayer Age: 28 yrs Sex: Female : 1995 Arrival Date: 11/23/2023 Time: 16:57 Bed 11 Private MD: Diagnosis: Encounter for supervision of normal first , second trimester Presentation: 11/22 17:16 Chief complaint: Patient states: STATES ABD CRAMPING STARTED AT 1130 ENDED AT 1600. db STATES HAS BEEN WORKING ALL DAY. DENIES SPOTTING. COMPLAINS OF LEFT LOWER BACK PAIN. STATES THIS IS 3RD . Coronavirus screen: Client denies travel out of the [place] in the last 14 days. At this time, the client does not indicate any symptoms associated with coronavirus-19. Ebola Screen: Patient negative for fever greater than or equal to 101.5 degrees Fahrenheit, and additional compatible Ebola Virus Disease symptoms Patient denies exposure to infectious person. Patient denies travel to an Ebola-affected area in the 21 days before illness onset. No symptoms or risks identified at this time. Initial Sepsis Screen: Does the patient meet any 2 criteria? No. Patient's initial sepsis screen is negative. Does the patient have a suspected source of infection? No. Patient's initial sepsis screen is negative. Risk Assessment: Do you want to hurt yourself or someone else? Patient reports no desire to harm self or others. Onset of symptoms was November 23, 2023 at 11:30. 17:16 Method Of Arrival: Ambulatory db 17:16 Acuity: DOC 3 db Triage Assessment: 17:19 General: Appears in no apparent distress. comfortable, Behavior is calm, cooperative. db Pain: Complains of pain in back. Neuro: Level of Consciousness is awake, alert, obeys commands, Oriented to person, place, time, situation. Respiratory: Airway is patent Respiratory effort is even, unlabored, Respiratory pattern is regular, symmetrical. GI: Reports cramping. 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 - Infectious Disease History:: Denies. - Social history:: Smoking status: Patient denies any tobacco usage or history of. Screenin:46 [facility] ED Fall Risk Assessment (Adult) History of falling in the last 3 months, kc6 including since admission No falls in past 3 months (0 pts) Confusion or Disorientation No (0 pts) Intoxicated or Sedated No (0 pts) Impaired Gait No (0 pts) Mobility Assist Device Used No (0 pt) Altered Elimination No (0 pt) Score/Fall Risk Level 0 - 2 = Low Risk. Abuse screen: Denies threats or abuse. Denies injuries from another. Nutritional screening: No deficits noted. Tuberculosis screening: No symptoms or risk factors identified. Assessment: 17:44 General: Appears in no apparent distress. comfortable, well groomed, well developed, kc6 Behavior is calm, cooperative, appropriate for age. Pain: Complains of pain in left lower quadrant Pain does not radiate. Quality of pain is described as crampy, Is continuous. Neuro: Level of Consciousness is awake, alert, obeys commands, Oriented to person, place, time, situation, Appropriate for age. Cardiovascular: Capillary refill < 3 seconds. Respiratory: Airway is patent Trachea midline Respiratory effort is even, unlabored, Respiratory pattern is regular, symmetrical. GI: Abdomen is round non-distended, Bowel sounds present X 4 quads. Abd is soft X 4 quads Abdomen is tender to palpation in left lower quadrant Reports nausea, vomiting, Patient currently denies diarrhea. : Urine is clear, Reports cramping, in left lower quadrant(s) Denies burning with urination, vaginal bleeding, vaginal itching. EENT: No signs and/or symptoms were reported regarding the EENT system. Derm: No signs and/or symptoms reported regarding the dermatologic system. Skin is intact, is healthy with good turgor, Skin is pink, warm \T\ dry. Musculoskeletal: No signs and/or symptoms reported regarding the musculoskeletal system. Circulation, motion, and sensation intact. Capillary refill < 3 seconds, Range of motion: intact in all extremities. 18:46 Reassessment: Patient appears in no apparent distress at this time. No changes from kc6 previously documented assessment. Patient and/or family updated on plan of care and expected duration. Pain level reassessed. Patient is alert, oriented x 3, equal unlabored respirations, skin warm/dry/pink. Vital Signs: 17:16 BP 120 / 72; Pulse 95; Resp 18; Temp 98.2(O); Pulse Ox 99% ; Weight 82.55 kg; Height 5 db ft. 1 in. ; 17:16 Body Mass Index 34.39 (82.55 kg, 154.94 cm) db ED Course: 16:59 Patient arrived in ED. mr 17:01 Patti Hidalgo [facility]. sb4 17:01 Irma Zheng MD is Attending Physician. sb4 17:19 Triage completed. db 17:19 Arm band placed on. db 17:31 Lexis Johnson RN is Primary Nurse. kc6 17:44 Patient has correct armband on for positive identification. Placed in gown. Bed in low kc6 position. Call light in reach. Side rails up X 1. Adult w/ patient. Client placed on continuous cardiac and pulse oximetry monitoring. NIBP monitoring applied. Pillow given. 17:44 Basic Metabolic Panel Sent. kc6 17:44 CBC with Diff Sent. kc6 17:44 Test, Urine Sent. kc6 17:44 Quantitative Hcg Sent. kc6 17:44 Urinalysis w/ reflexes Sent. kc6 17:44 Inserted saline lock: 20 gauge in right antecubital area, using aseptic technique. kc6 Blood collected. 18:06 US OB Limited In Process Unspecified. EDMS 18:52 No provider procedures requiring assistance completed. IV discontinued, intact, kc6 bleeding controlled, No redness/swelling at site. Pressure dressing applied. Administered Medications: No medications were administered Medication: 18:52 VIS not applicable for this client. kc6 Outcome: 18:45 Discharge ordered by . sb4 18:52 Discharged to home ambulatory, with family, kc6 18:52 Condition: good 18:52 Discharge instructions given to patient, Instructed on discharge instructions, follow up and referral plans. Demonstrated understanding of instructions, follow-up care, 18:52 Patient left the ED. kc6 Signatures: Dispatcher [employer] EDWY Catrachita Stanley, Reg Reg mr Lexis Johnsno RN RN kc6 Evie Tim, RN RN db Patti Hidalgo PA-C PA-C sb4
[2023-11-23 19:58] VITALS: BP 120/72; TEMP 98.2; O2SAT 99
== END 2023-11-23 18:52 | disposition home or self-care (01) ==
LOC: ER 16:57
DX: O26.892 Other specified pregnancy related conditions, second trimester (principal); Z3A.17 17 weeks gestation of pregnancy; Z88.5 Allergy status to narcotic agent
CPT/HCPCS: 36415; 76815; 80048; 81001; 81025; 84702; 85025; 99284

== ENCOUNTER 2024-07-15 16:25 | Emergency (ER) | payer OTHER ==
--- OUTSIDE RECORDS SUMMARY | 2024-07-15 16:33 | XMS REPORT | Continuity of Care Document ---
Author Name Unknown Address [address] [place] [address] [facility] thconnect Address [address] [place] [address] Care Team Providers Care Racing Manager Name Role Phone NO PHYSICIAN, . Primary Care Physician Unavailab BENJAMIN Jacob Attending Clinician UnavailSAPPHIRE Mcgee Attending Clinician Unavailable FELIZ GOLDBERG Attending Clinician Unavailable ASHLEY TORRES Attending Clinician UnavailBATSHEVA Fagan Attending Clinician Unavailable BATSHEVA SULLIVAN Attending Clinician Unavailable OXANA WILLIS Attending Clinician Unavail able Oxana Mckinnon Attending Clinician + Fiona Barnard CNM Attending Clinician Ultrasound, Ang-Mfm Attending Clinician UnavailShante Jones MD Attending Clinician + MONSON KOUTROUVELIS, FREY Attending Clinician Unav ailable MARLON MANTILLAODY Attending Clinician Unavailab DOMINICK Olmedo Attending Clinician Unavailab Nori Rush MD Attending Clinician + BHARGAV VIVAS Attending Clinician Unavailable BHARGAV VIVAS Attending Clinician Unavailable Bhargav Vivas MD Attending Clinician [phone] Jennifer Aiken Attending Clinician [phone] JUNIOR MELCOHR Attending Clinician Unavailable Provider, [facility] Attending Clinician Un available Michael Fernandes DO Attending Clinician Meg Gotti Attending Clinician [phone] MEG BYRD Attending Clinician Unavailabl e Doctor Unassigned, [place] Attending Clinician U navailgee DOMINICK MANTILLA Admitting Clinician Unavailab FELIZ Gomez Admitting Clinician Unavailable Payers Payer Name Policy Type Policy Number Effective Date Expirati on Date Source [place] [employer] [id number] 2023 00:00:00 STEF[place]/ PAUL [place] [id number] 2023 00:00:00 Problems Condition Name Condition Details Condition Category Status Onset Date Resolution Date Last Treatment Date Treating Clinician Comments Source Iron deficiency anemia of Iron Deficiency Anemia of Problem Active 9- 00:00: 00 [facility] Rheumatoid arthritis Rheumatoid Arthritis Problem Active 8- 00:00: 00 [facility] Genital herpes simplex Genital Herpes Simplex Problem Active - 00[facility]00: 00 [facility] Mixed anxiety and depressive disorder Mixed Anxiety and Depressive Disorder Problem Active - 00:00: 00 [facility] Arthritis Arthritis Problem Active - 00:00: 00 [facility] High risk due to history of labor High Risk Due to History of Labor Problem Active - 00:00: 00 [facility] Vaginal candidiasi s Vaginal candidiasi s Disease Active 6 00:00: 00 [facility] Bacterial vaginosis in Bacterial vaginosis in Disease Active 6- 00:00: 00 [facility] Obesity (BMI 30-39.9) Obesity (BMI 30-39.9) Disease Active 6- 00:00: 00 [facility] 22 weeks gestation of 22 weeks gestation of Disease Active 6- 00:00: 00 [facility] Rubella non-immune status, antepartum Rubella non-immune status, antepartum Disease Active 4-02 00:00: 00 Overview: Formattin g of this note might be different from the original. Address pp [facility] Chlamydia infection affecting Chlamydia infection affecting Disease Active 4 00:00: 00 Overview: Formattin g of this note might be different from the original. [place] at next visit [facility] Supervisio n of high-risk Supervisio n of high-risk Disease Active 3-29 00:00: 00 [facility] Multiparit y Multiparit y Disease Active 0 3-29 00:00: 00 [facility] Obesity in Obesity in Disease Active 0 3-29 00:00: 00 [facility] History of delivery History of delivery Disease Active 0 3-29 00:00: 00 Overview: Formattin g of this note might be different from the original. 2017 [facility] Trichomona l vulvovagin itis Trichomona l vulvovagin itis Disease Active 0 2-12 00:00: 00 [facility] Herpes, vulvar Herpes, vulvar Disease Active 0 2-04 00:00: 00 [facility] Herpes infection in Herpes infection in Disease Active 0 2-04 00:00: 00 Overview: Formattin g of this note might be different from the original. Start suppressi on at 36 weeks [facility] IUD (intrauter ine device) in place IUD (intrauter ine device) in place Disease Active 0 2-04 00:00: 00 [facility] BMI 26.0-26.9, adult BMI 26.0-26.9, adult Disease Active 03-31 00:00: 00 [facility] Depression Depression Disease Active 03-08 00:00: 00 [facility] History of depression History of depression Disease Active 03-08 00:00: 00 [facility] Vaginal Pap smear with LGSIL Vaginal Pap smear with LGSIL Disease Active 08-24 00:00: 00 Overview: Formattin g of this note might be different from the original. Repeat 1 year [facility] Juvenile arthritis Juvenile arthritis Disease Active 08-16 00:00: 00 [facility] History of anxiety History of anxiety Disease Active 08-16 00:00: 00 [facility] test performed, confirmed test performed, confirmed Diagnosis Active [facility] 38 weeks gestation of Problem [facility] Chronic anemia Problem [facility] Normal delivery at term Problem [facility] Single live Problem [facility] Infection due to severe acute respirator y syndrome coronaviru s 2 (SARS-CoV- 2) Problem [facility] Fever Problem [facility] Tachycardi a Problem [facility] Tachycardi a found on measuremen t of baseline heart rate Problem [facility] Uterine contractio ns during Problem [facility] Herpes simplex vulvovagin itis Herpes simplex vulvovagin itis Problem Active [facility] STI (sexually transmitte d infection) STI (sexually transmitte d infection) Problem Active [facility] IUD (intrauter ine device) in place IUD (intrauter ine device) in place Problem Active [facility] BMI 26.0-26.9, adult BMI 26.0-26.9, adult Disease Resolve d 03-31 00:00: 00 2023-10-20 00:00:00 2023-10-20 08:51:04 [facility] Other general counseling and advice for contracept karli management Other general counseling and advice for contracept karli management Disease Resolve d 2019-0 2-04 00:00: 00 2020-05-13 00:00:00 2020-05-13 15:22:25 [facility] IUD (intrauter ine device) in place IUD (intrauter ine device) in place Disease Resolve d 2019-0 2-04 00:00: 00 2020-05-13 00:00:00 2020-05-13 15:22:28 [facility] 36 weeks gestation of 36 weeks gestation of Disease Resolve d 2016-0 7-19 00:00: 00 2020-05-13 00:00:00 2020-05-13 15:22:32 [facility] Liveborn infant, of ayoub , born in hospital by vaginal delivery Liveborn , of ayoub , born in hospital by vaginal delivery Disease Resolve d 0 7-19 00:00: 00 2020-05-13 00:00:00 2020-05-13 15:22:27 [facility] labor in third trimester labor in third trimester Disease Resolve d 0 7-18 00:00: 00 2020-05-13 00:00:00 2020-05-13 15:22:22 [facility] care and examinatio n of lactating mother care and examinatio n of lactating mother Disease Resolve d 0 8-16 00:00: 00 2020-05-13 00:00:00 2020-05-13 15:22:23 [facility] Vaginal bleeding before 22 weeks gestation Vaginal bleeding before 22 weeks gestation Disease Resolve d 0 - 00:00: 00 2016-03-08 00:00:00 2016-03-08 13:07:25 [facility] Vaginal yeast infection Vaginal yeast infection Disease Resolve d 0 -07 00:00: 00 2016-03-08 00:00:00 2016-03-08 13:07:10 [facility] Anemia of mother in , antepartum Anemia of mother in , antepartum Disease Active 0 5-25 00:00: 00 2016-03-08 00:00:00 2016-03-08 13:07:23 [facility] Fall Fall Disease Resolve d 5-17 00:00: 00 2016-03-08 00:00:00 2016-03-08 13:07:20 [facility] Heartburn during Heartburn during Disease Resolve d 4-18 00:00: 00 2016-03-08 00:00:00 2016-03-08 13:07:16 [facility] Frequent headaches Frequent headaches Disease Resolve d 418 00:00: 00 2016-03-08 00:00:00 2016-03-08 13:07:18 [facility] Supervisio n of high-risk with insufficie nt care Supervisio n of high-risk with insufficie nt care Disease Resolve d 24 00:00: 00 2016-03-08 00:00:00 2016-03-08 13:07:12 [facility] Allergies, Adverse Reactions, Alerts Allergy Name Allergy Type Status Severity Reaction(s) Onset Date Inactive Date Treating Clinician Comments Source Codeine ([id number]) Allergy to substanc e Active Severe [facility]01 [facility] Codeine Propensi ty to adverse reaction s Active Anaphylaxis 2014-07 00:00: 00 [facility] CODEINE DRUG INGREDI Active Anaphylaxis 2014-07 00:00: 00 [facility] Social History Social Habit Start Date Stop Date Quantity Comments Source ASSERTION 2023-08-05 00:00:00 [facility] History of tobacco use [facility] Exposure to SARS-CoV-2 (event) Not sure [facility] Alcoholic beverage intake 2024-02-07 00:00:00 2024-02-07 00:00:00 0 /d [facility] Alcohol intake 2023-11-17 00:00:00 2023-11-17 00:00:00 0 /d [facility] Tobacco use and exposure 2023-10-20 00:00:2023-10-20 00:00:00 Smokeless tobacco non-user [facility] History of Social function 2023-10-20 00:00:00 2023-10-20 00:00:00 [facility] Sex assigned at 1995 00:00:00 1995 00:00:00 [facility] Smoking Status Start Date Stop Date Source Never smoked tobacco (finding) [facility] Medications Ordered Medication Name Filled Medication Name Start Date Stop Date Current Medication? Ordering Clinician Indication Dosage Frequency Signature (SIG) Comments Components Source Ferrous Sulfate (Feosol 325 Mg *) [address] Ferrous Sulfate (Feosol 325 Mg *) [address] 04-14 10:37: 00 Yes 1 [facility] Ibuprofen (Motrin) 800 Mg TAB Ibuprofen (Motrin) 800 Mg TAB 04-14 10:37: 00 Yes 800 [facility] Multivit-Mi n W/Fe-Fa * ( *) TAB Multivit-Mi n W/Fe-Fa * ( *) TAB 04-13 09:26: 00 Yes 1 [facility] Iron Fum & P-FA-Vit B & C No.9 (INTEGRA PLUS) 125 mg iron- 1 mg Cap 01-31 00:00: 00 Yes [id number] 1{capsu le} Take 1 capsule by mouth in the morning. [facility] alum-mag hydroxide-s imeth (MAG-AL PLUS) 200-200-20 mg/5 mL suspension 30 mL 12-22 19:52: 54 Yes 30mL [facility] docusate (COLACE) capsule 200 mg 12-22 19:52: 54 Yes 200mg [facility] magnesium hydroxide (MILK OF MAGNESIA) 400 mg/5 mL suspension 30 mL 12-22 19:52: 54 Yes 30mL [facility] metroNIDAZO LE (FLAGYL) tablet 500 mg 12-22 17:15: 00 12-22 17:18 :00 No 500mg 500 mg, Oral, Q12H, 1 dose, First dose on 12/23/23 at 1215, Routine, Reason for Anti-Infec tive: Documented Infection, Documented Infection Site: Pelvic, Duration of Therapy: Once (ED) [facility] fluconazole (DIFLUCAN) tablet 150 mg 12-22 17:15: 00 12-22 17:18 :00 No 150mg 150 mg, Oral, DAILY, 1 dose, First dose on 12/23/23 at 1215, ROBY, Reason for Anti-Infec tive: Documented Infection, Documented Infection Site: Pelvic, Duration of Therapy: Once (ED) [facility] metroNIDAZO LE 500 mg tablet 12-18 00:00: 00 Yes [id number] 500mg Take 1 tablet by mouth in the morning and 1 tablet in the evening. [facility] terconazole 80 mg vaginal suppository 12-18 00:00: 00 12-22 04:59 :00 No [id number] 80mg Insert 1 Suppositor y into vagina at bedtime for 3 days. [facility] PNV 67-iron ps-folate no.1-dha (VITAFOL ULTRA) 29 mg iron- 1 mg-200 mg Cap 11-16 00:00: 00 Yes [id number] 1{each} Take 1 Each by mouth in the morning. [facility] proMETHazin e 25 mg tablet 11-16 00:00: 00 Yes [id number] 25mg Take 1 tablet by mouth every 6 (six) hours as needed for Nausea and Vomiting (N/V). [facility] amoxicillin 500 mg capsule 05 00:00: 00 11-03 04:59 :00 No [id number] 01 500mg Take 1 capsule by mouth in the morning and 1 capsule at noon and 1 capsule in the evening. Do all this for 7 days. [facility] nxf67-qfwa- folic acid 29 mg iron- 1 mg per tablet 10-19 00:00: 00 Yes [id number] 1{tbl} Take 1 tablet by mouth in the morning. [facility] metroNIDAZO LE 500 mg tablet 09-04 00:00: 00 09-05 05:59 :00 No [id number] 2000mg Take 4 tablets by mouth once now for 1 dose. [facility] fluconazole (DIFLUCAN) 150 mg tablet 09-04 00:00: 00 09-05 05:59 :00 No [id number] 150mg Take 1 tablet by mouth once now for 1 dose. [facility] sulfamethox azole-trime thoprim 800-160 mg per tablet 02-07 00:00: 00 Yes [id number] 1{tbl} Take 1 tablet by mouth every 12 (twelve) hours. [facility] mupirocin 2 % ointment 02-07 00:00: 00 Yes [id number] Apply to area(s) 3 (three) times daily. [facility] ondansetron (ZOFRAN ODT) 4 mg disintegrat ing tablet 12-19 00:00: 00 Yes [id number] 4mg Take 1 tablet by mouth every 8 (eight) hours as needed for Nausea and Vomiting (N/V). [facility] Acyclovir Acyclovir 10-18 00:00: 00 Yes Paul Wilder 1 tablet [facility] doxycycline 100 mg capsule 10-12 00:00: 00 Yes 100mg Take 1 capsule by mouth 2 (two) times daily. [facility] vitamin w/FA tablet 02-09 00:00: 00 Yes 1{tbl} Take 1 tablet by mouth daily. [facility] vitamin w/FA tablet 02-09 00:00: 00 Yes 1{tbl} Take 1 tablet by mouth daily. [facility] docusate calcium 240 mg capsule 02-09 00:00: 00 Yes 240mg Take 1 capsule by mouth once daily as needed for Constipati on. [facility] ibuprofen 600 mg tablet 02-09 00:00: 00 Yes 600mg Take 1 tablet by mouth every 6 (six) hours as needed for Pain (scale 1-3) or Pain (scale 4-6) (Pain). Take with food or milk. [facility] ferrous sulfate 325 mg (65 mg iron) tablet 02-09 00:00: 00 Yes 325mg Take 1 tablet by mouth 2 (two) times daily. [facility] acyclovir 400 mg tablet TAKE 1 TABLET BY MOUTH TWICE A DAY acyclovir 400 mg tablet TAKE 1 TABLET BY MOUTH TWICE A DAY No acyclovir 400 mg tablet TAKE 1 TABLET BY MOUTH TWICE A DAY [facility] Integra Plus 125 mg iron-1 mg capsule Integra Plus 125 mg iron-1 mg capsule No Integra Plus 125 mg iron-1 mg capsule [facility] No [facility] Vitafol Ultra 29 mg iron-1 mg-200 mg capsule TAKE 1 CAPSULE BY MOUTH IN THE MORNING Vitafol Ultra 29 mg iron-1 mg-200 mg capsule TAKE 1 CAPSULE BY MOUTH IN THE MORNING No Vitafol Ultra 29 mg iron-1 mg-200 mg capsule TAKE 1 CAPSULE BY MOUTH IN THE MORNING [facility] valacyclovi r 500 mg tablet TAKE 1 TABLET BY MOUTH EVERY DAY valacyclovi r 500 mg tablet TAKE 1 TABLET BY MOUTH EVERY DAY No 1 Q1D valacyclov ir 500 mg tablet TAKE 1 TABLET BY MOUTH EVERY DAY [facility] metoclopram kathie 10 mg tablet TAKE 1 TABLET BY MOUTH EVERY 6 HOURS NEEDED metoclopram kathie 10 mg tablet TAKE 1 TABLET BY MOUTH EVERY 6 HOURS NEEDED No metoclopra mide 10 mg tablet TAKE 1 TABLET BY MOUTH EVERY 6 HOURS NEEDED [facility] Macrobid 100 mg capsule Take 1 capsule every 12 hours by oral route for 5 days. Macrobid 100 mg capsule Take 1 capsule every 12 hours by oral route for 5 days. No 1capsul e(s) Q12H Macrobid 100 mg capsule Take 1 capsule every 12 hours by oral route for 5 days. [facility] medroxyprog esterone 150 mg/mL intramuscul ar syringe Inject 1 mL every 3 months by intramuscul ar route. medroxyprog esterone 150 mg/mL intramuscul ar syringe Inject 1 mL every 3 months by intramuscul ar route. No 1mL medroxypro gesterone 150 mg/mL intramuscu lar syringe Inject 1 mL every 3 months by intramuscu lar route. [facility] Immunizations Ordered Immunization Name Filled Immunization Name Date Status Comments Source SARS-COV-2 COVID-19 PFIZER VACCINE 2020-11-05 00:00:00 Completed [facility] SARS-COV-2 COVID-19 PFIZER VACCINE 2020-10-15 00:00:00 Completed [facility] HPV9 2019-08-27 00:00:00 Completed [facility] Influenza Virus Vaccine Quad .5 mL IM 6+ MO 2019-08-27 00:00:00 Completed [facility] HPV9 2019-08-27 00:00:00 Completed [facility] Influenza Virus Vaccine Quad .5 mL IM 6+ MO 2019-08-27 00:00:00 Completed [facility] HPV9 2019-08-27 00:00:00 Completed [facility] Influenza Virus Vaccine Quad .5 mL IM 6+ MO 2019-08-27 00:00:00 Completed [facility] HPV9 2019-08-27 00:00:00 Completed [facility] Influenza Virus Vaccine Quad .5 mL IM 6+ MO 2019-08-27 00:00:00 Completed [facility] HPV9 2019-08-27 00:00:00 Completed [facility] Influenza Virus Vaccine Quad .5 mL IM 6+ MO 2019-08-27 00:00:00 Completed [facility] HPV9 2019-08-27 00:00:00 Completed [facility] Influenza Virus Vaccine Quad .5 mL IM 6+ MO 2019-08-27 00:00:00 Completed [facility] HPV9 2019-08-27 00:00:00 Completed [facility] Influenza Virus Vaccine Quad .5 mL IM 6+ MO 2019-08-27 00:00:00 Completed [facility] HPV9 2019-08-27 00:00:00 Completed [facility] Influenza Virus Vaccine Quad .5 mL IM 6+ MO 2019-08-27 00:00:00 Completed [facility] HPV9 2019-08-27 00:00:00 Completed [facility] Influenza Virus Vaccine Quad .5 mL IM 6+ MO 2019-08-27 00:00:00 Completed [facility] HPV9 2019-08-27 00:00:00 Completed [facility] Influenza Virus Vaccine Quad .5 mL IM 6+ MO 2019-08-27 00:00:00 Completed [facility] Tdap 2015-12-15 00:00:00 Completed [facility] Tdap 2015-12-15 00:00:00 Completed [facility] TDAP 2015-12-15 00:00:00 Completed [facility] TDAP 2015-12-15 00:00:00 Completed [facility] TDAP 2015-12-15 00:00:00 Completed [facility] TDAP 2015-12-15 00:00:00 Completed [facility] TDAP 2015-12-15 00:00:00 Completed [facility] TDAP 2015-12-15 00:00:00 Completed [facility] TDAP 2015-12-15 00:00:00 Completed [facility] Tdap 2015-12-15 00:00:00 Completed [facility] Tdap 2015-12-15 00:00:00 Completed [facility] Influenza Virus Vaccine Quad IM 3+ YRS 2015-08-13 00:00:00 Completed [facility] Influenza Virus Vaccine Quad IM 3+ YRS 2015-08-13 00:00:00 Completed [facility] Influenza Virus Vaccine Quad IM 3+ YRS 2015-08-13 00:00:00 Completed [facility] Influenza Virus Vaccine Quad IM 3+ YRS 2015-08-13 00:00:00 Completed [facility] Influenza Virus Vaccine Quad IM 3+ YRS 2015-08-13 00:00:00 Completed [facility] Influenza Virus Vaccine Quad IM 3+ YRS 2015-08-13 00:00:00 Completed [facility] Influenza Virus Vaccine Quad IM 3+ YRS 2015-08-13 00:00:00 Completed [facility] Influenza Virus Vaccine Quad IM 3+ YRS 2015-08-13 00:00:00 Completed [facility] Influenza Virus Vaccine Quad IM 3+ YRS 2015-08-13 00:00:00 Completed [facility] Influenza Virus Vaccine Quad IM 3+ YRS 2015-08-13 00:00:00 Completed [facility] Influenza Virus Vaccine Quad IM 3+ YRS 2015-08-13 00:00:00 Completed [facility] Td 2006-07-24 00:00:00 Completed [facility] Td 2006-07-24 00:00:00 Completed [facility] Td 2006-07-24 00:00:00 Completed [facility] Td 2006-07-24 00:00:00 Completed [facility] Td 2006-07-24 00:00:00 Completed [facility] Td 2006-07-24 00:00:00 Completed [facility] Td 2006-07-24 00:00:00 Completed [facility] Td 2006-07-24 00:00:00 Completed [facility] Td 2006-07-24 00:00:00 Completed [facility] Td 2006-07-24 00:00:00 Completed [facility] Td 2006-07-24 00:00:00 Completed [facility] SARS-COV-2 COVID-19 PFIZER VACCINE Unknown Completed [facility] TD, NOS Unknown Completed [facility] Influenza Virus Vaccine Quad IM 3+ YRS Unknown Completed [facility] TDAP Unknown Completed [facility] HPV9 Unknown Completed [facility] SARS-COV-2 COVID-19 PFIZER VACCINE Unknown Completed [facility] TD, NOS Unknown Completed [facility] Influenza Virus Vaccine Quad IM 3+ YRS Unknown Completed [facility] TDAP Unknown Completed [facility] HPV9 Unknown Completed [facility] SARS-COV-2 COVID-19 PFIZER VACCINE Unknown Completed [facility] TD, NOS Unknown Completed [facility] Influenza Virus Vaccine Quad IM 3+ YRS Unknown Completed [facility] TDAP Unknown Completed [facility] HPV9 Unknown Completed [facility] SARS-COV-2 COVID-19 PFIZER VACCINE Unknown Completed [facility] TD, NOS Unknown Completed [facility] Influenza Virus Vaccine Quad IM 3+ YRS Unknown Completed [facility] TDAP Unknown Completed [facility] HPV9 Unknown Completed [facility] SARS-COV-2 COVID-19 PFIZER VACCINE Unknown Completed [facility] TD, NOS Unknown Completed [facility] TDAP Unknown Completed [facility] [facility] HPV9 Unknown Completed [facility] Influenza Virus Vaccine Quad IM 3+ YRS Unknown Completed [facility] SARS-COV-2 COVID-19 PFIZER VACCINE Unknown Completed [facility] TD, NOS Unknown Completed [facility] Influenza Virus Vaccine Quad IM 3+ YRS Unknown Completed [facility] TDAP Unknown Completed [facility] HPV9 Unknown Completed [facility] SARS-COV-2 COVID-19 PFIZER VACCINE Unknown Completed [facility] TD, NOS Unknown Completed [facility] Influenza Virus Vaccine Quad IM 3+ YRS Unknown Completed [facility] TDAP Unknown Completed [facility] HPV9 Unknown Completed [facility] SARS-COV-2 COVID-19 PFIZER VACCINE Unknown Completed [facility] TD, NOS Unknown Completed [facility] Influenza Virus Vaccine Quad IM 3+ YRS Unknown Completed [facility] TDAP Unknown Completed [facility] HPV9 Unknown Completed [facility] SARS-COV-2 COVID-19 PFIZER VACCINE Unknown Completed [facility] TD, NOS Unknown Completed [facility] Influenza Virus Vaccine Quad IM 3+ YRS Unknown Completed [facility] TDAP Unknown Completed [facility] HPV9 Unknown Completed [facility] SARS-COV-2 COVID-19 PFIZER VACCINE Unknown Completed [facility] TD, NOS Unknown Completed [facility] Influenza Virus Vaccine Quad IM 3+ YRS Unknown Completed [facility] TDAP Unknown Completed [facility] HPV9 Unknown Completed [facility] SARS-COV-2 COVID-19 PFIZER VACCINE Unknown Completed [facility] TD, NOS Unknown Completed [facility] Influenza Virus Vaccine Quad IM 3+ YRS Unknown Completed [facility] TDAP Unknown Completed [facility] HPV9 Unknown Completed [facility] SARS-COV-2 COVID-19 PFIZER VACCINE Unknown Completed [facility] TD, NOS Unknown Completed [facility] Influenza Virus Vaccine Quad IM 3+ YRS Unknown Completed [facility] TDAP Unknown Completed [facility] HPV9 Unknown Completed [facility] SARS-COV-2 COVID-19 PFIZER VACCINE Unknown Completed [facility] TD, NOS Unknown Completed [facility] Influenza Virus Vaccine Quad IM 3+ YRS Unknown Completed [facility] TDAP Unknown Completed [facility] HPV9 Unknown Completed [facility] SARS-COV-2 COVID-19 PFIZER VACCINE Unknown Completed [facility] TD, NOS Unknown Completed [facility] Influenza Virus Vaccine Quad IM 3+ YRS Unknown Completed [facility] TDAP Unknown Completed [facility] HPV9 Unknown Completed [facility] SARS-COV-2 COVID-19 PFIZER VACCINE Unknown Completed [facility] TD, NOS Unknown Completed [facility] Influenza Virus Vaccine Quad IM 3+ YRS Unknown Completed [facility] TDAP Unknown Completed [facility] HPV9 Unknown Completed [facility] SARS-COV-2 COVID-19 PFIZER VACCINE Unknown Completed [facility] TD, NOS Unknown Completed [facility] Influenza Virus Vaccine Quad IM 3+ YRS Unknown Completed [facility] TDAP Unknown Completed [facility] HPV9 Unknown Completed [facility] SARS-COV-2 COVID-19 PFIZER VACCINE Unknown Completed [facility] TD, NOS Unknown Completed [facility] Influenza Virus Vaccine Quad IM 3+ YRS Unknown Completed [facility] TDAP Unknown Completed [facility] HPV9 Unknown Completed [facility] SARS-COV-2 COVID-19 PFIZER VACCINE Unknown Completed [facility] TD, NOS Unknown Completed [facility] Influenza Virus Vaccine Quad IM 3+ YRS Unknown Completed [facility] TDAP Unknown Completed [facility] HPV9 Unknown Completed [facility] SARS-COV-2 COVID-19 PFIZER VACCINE Unknown Completed [facility] TD, NOS Unknown Completed [facility] Influenza Virus Vaccine Quad IM 3+ YRS Unknown Completed [facility] TDAP Unknown Completed [facility] HPV9 Unknown Completed [facility] Vital Signs Vital Name Observation Time Observation Value Comments S ource BP Systolic 2024-05-07 00:00:00 115 mm[Hg] [facility] BMI (Body Mass Index) 2024-05-07 00:00:00 31.6 kg/m2 [facility] dical [facility] BP Diastolic 2024-05-07 00:00:00 78 mm[Hg] [facility] Height 2024-05-07 00:00:00 61 [in_i] [facility] Body Weight 2024-05-07 00:00:00 167 [lb_av] [facility] Height 2024-04-13 09:18:00 154.94 cm [facility] Weight 2024-04-13 09:18:00 87.193651 kg [facility] BMI (Body Mass Index) 2024-04-13 09:18:00 36.5 kg/m2 [place] [facility] BP Diastolic 2024-04-09 00:00:00 89 mm[Hg] [facility] BP Systolic 2024-04-09 00:00:00 133 mm[Hg] [facility] Height 2024-04-09 00:00:00 61 [in_i] [facility] Body Weight 2024-04-09 00:00:00 191 [lb_av] [facility] BMI (Body Mass Index) 2024-04-09 00:00:00 36.1 kg/m2 [place] [facility] BP Systolic 2024-03-26 00:00:00 129 mm[Hg] [facility] BP Diastolic 2024-03-26 00:00:00 91 mm[Hg] [facility] BMI (Body Mass Index) 2024-03-26 00:00:00 36.1 kg/m2 [facility] Height 2024-03-26 00:00:00 61 [in_i] [facility] Body Weight 2024-03-26 00:00:00 190.8 [lb_av] [facility] Body Weight 2024-03-11 00:00:00 189.1 [lb_av] [facility] Height 2024-03-11 00:00:00 61 [in_i] [facility] BP Diastolic 2024-03-11 00:00:00 69 mm[Hg] [facility] BMI (Body Mass Index) 2024-03-11 00:00:00 35.7 kg/m2 [place] [facility] BP Systolic 2024-03-11 00:00:00 112 mm[Hg] [facility] BP Diastolic 2024-02-09 00:00:00 79 mm[Hg] [facility] BP Systolic 2024-02-09 00:00:00 115 mm[Hg] [facility] Body Weight 2024-02-09 00:00:00 183 [lb_av] [facility] BMI (Body Mass Index) 2024-02-09 00:00:00 34.6 kg/m2 [place] [facility] Height 2024-02-09 00:00:00 61 [in_i] [facility] Systolic blood pressure 2024-02-07 17:39:00 135 mm[Hg] [facility] Diastolic blood pressure 2024-02-07 17:39:00 88 mm[Hg] [facility] Heart rate 2024-02-07 17:39:00 91 /min Unive [facility] Body temperature 2024-02-07 17:39:00 36.78 Deborah [facility] Respiratory rate 2024-02-07 17:39:00 18 /min [facility] Body height 2024-02-07 17:39:00 154.9 cm [facility] Body weight 2024-02-07 17:39:00 84.171 kg [facility] BMI 2024-02-07 17:39:00 35.06 kg/m2 [facility] Body weight 2024-01-24 15:33:00 82.736 kg [facility] BMI 2024-01-24 15:33:00 34.46 kg/m2 [facility] Systolic blood pressure 2024-01-24 15:33:00 118 mm[Hg] [facility] Diastolic blood pressure 2024-01-24 15:33:00 72 mm[Hg] [facility] Heart rate 2024-01-24 15:33:00 78 /min Unive [facility] Body temperature 2024-01-24 15:33:00 36.22 Deborah [facility] Respiratory rate 2024-01-24 15:33:00 18 /min [facility] Body height 2024-01-24 15:33:00 154.9 cm [facility] Systolic blood pressure 2024-01-11 15:46:00 124 mm[Hg] [facility] Diastolic blood pressure 2024-01-11 15:46:00 78 mm[Hg] [facility] Heart rate 2024-01-11 15:46:00 69 /min Unive [facility] Body temperature 2024-01-11 15:46:00 36.5 Deborah [facility] Respiratory rate 2024-01-11 15:46:00 18 /min [facility] Body height 2024-01-11 15:46:00 154.9 cm [facility] Body weight 2024-01-11 15:46:00 83.643 kg [facility] BMI 2024-01-11 15:46:00 34.84 kg/m2 [facility] Heart rate 2023-12-23 17:18:00 86 /min [facility] Oxygen saturation in Arterial blood by Pulse oximetry 2023-12-23 17:18:00 99 /min [facility] Respiratory rate 2023-12-23 17:00:00 18 /min [facility] Body weight 2023-12-23 17:00:00 83 kg [facility] BMI 2023-12-23 17:00:00 34.57 kg/m2 [facility] Systolic blood pressure 2023-12-23 16:00:00 107 mm[Hg] [facility] Diastolic blood pressure 2023-12-23 16:00:00 66 mm[Hg] [facility] Body temperature 2023-12-23 16:00:00 37.06 Deborah [facility] Systolic blood pressure 2023-12-14 15:06:00 139 mm[Hg] [facility] Diastolic blood pressure 2023-12-14 15:06:00 77 mm[Hg] [facility] Heart rate 2023-12-14 15:06:00 76 /min Unive [facility] Body temperature 2023-12-14 15:06:00 36.39 Deborah [facility] Respiratory rate 2023-12-14 15:06:00 18 /min [facility] Body height 2023-12-14 15:06:00 154.9 cm [facility] Body weight 2023-12-14 15:06:00 83.416 kg [facility] BMI 2023-12-14 15:06:00 34.75 kg/m2 [facility] Systolic blood pressure 2023-11-17 14:59:00 130 mm[Hg] [facility] Diastolic blood pressure 2023-11-17 14:59:00 72 mm[Hg] [facility] Heart rate 2023-11-17 14:59:00 82 /min Unive [facility] Body temperature 2023-11-17 14:59:00 36.39 Deborah [facility] Respiratory rate 2023-11-17 14:59:00 18 /min [facility] Body height 2023-11-17 14:59:00 154.9 cm [facility] Body weight 2023-11-17 14:59:00 83.326 kg [facility] BMI 2023-11-17 14:59:00 34.71 kg/m2 [facility] Systolic blood pressure 2023-10-20 13:18:00 126 mm[Hg] [facility] Diastolic blood pressure 2023-10-20 13:18:00 69 mm[Hg] [facility] Heart rate 2023-10-20 13:18:00 71 /min Unive [facility] Body temperature 2023-10-20 13:18:00 36.61 Deborah [facility] Respiratory rate 2023-10-20 13:18:00 17 /min [facility] Body height 2023-10-20 13:18:00 154.9 cm [facility] Body weight 2023-10-20 13:18:00 84.823 kg [facility] BMI 2023-10-20 13:18:00 35.33 kg/m2 [facility] Systolic blood pressure 2020-10-15 20:46:00 128 mm[Hg] [facility] Diastolic blood pressure 2020-10-15 20:46:00 85 mm[Hg] [facility] Heart rate 2020-10-15 20:46:00 66 /min Unive [facility] Body temperature 2020-10-15 20:46:00 36.5 Deborah [facility] Respiratory rate 2020-10-15 20:46:00 18 /min [facility] Body height 2020-10-15 20:46:00 154.9 cm [facility] 2020-10-15 20:46:00 73.483 kg [facility] BMI 2020-10-15 20:46:00 30.61 kg/m2 [facility] Oxygen saturation in Arterial blood by Pulse oximetry 2020-10-15 20:46:00 98 /min [facility] Systolic blood pressure 2020-10-15 20:46:00 128 mm[Hg] [facility] Diastolic blood pressure 2020-10-15 20:46:00 85 mm[Hg] [facility] Heart rate 2020-10-15 20:46:00 66 /min Unive [facility] Body temperature 2020-10-15 20:46:00 36.5 Deborah [facility] Respiratory rate 2020-10-15 20:46:00 18 /min [facility] Body height 2020-10-15 20:46:00 154.9 cm [facility] Body weight 2020-10-15 20:46:00 73.483 kg [facility] BMI 2020-10-15 20:46:00 30.61 kg/m2 [facility] Oxygen saturation in Arterial blood by Pulse oximetry 2020-10-15 20:46:00 98 /min [facility] Systolic blood pressure 2020-05-13 19:52:00 132 mm[Hg] [facility] Diastolic blood pressure 2020-05-13 19:52:00 86 mm[Hg] [facility] Heart rate 2020-05-13 19:52:00 76 /min Unive [facility] Body temperature 2020-05-13 19:52:00 36.56 Deborah [facility] Respiratory rate 2020-05-13 19:52:00 16 /min [facility] Body height 2020-05-13 19:52:00 154.9 cm [facility] Body weight 2020-05-13 19:52:00 76.658 kg [facility] BMI 2020-05-13 19:52:00 31.93 kg/m2 [facility] Systolic blood pressure 2020-05-13 19:52:00 132 mm[Hg] [facility] Diastolic blood pressure 2020-05-13 19:52:00 86 mm[Hg] [facility] Heart rate 2020-05-13 19:52:00 76 /min Unive [facility] Body temperature 2020-05-13 19:52:00 36.56 Deborah [facility] Respiratory rate 2020-05-13 19:52:00 16 /min [facility] Body height 2020-05-13 19:52:00 154.9 cm [facility] Body weight 2020-05-13 19:52:00 76.658 kg [facility] BMI 2020-05-13 19:52:00 31.93 kg/m2 [facility] Systolic blood pressure 2019-08-27 17:04:00 112 mm[Hg] [facility] Diastolic blood pressure 2019-08-27 17:04:00 76 mm[Hg] [facility] Heart rate 2019-08-27 17:04:00 53 /min [facility] Body temperature 2019-08-27 17:04:00 36.67 Deborah [facility] Respiratory rate 2019-08-27 17:04:00 16 /min [facility] Body height 2019-08-27 17:04:00 154.9 cm [facility] Body weight 2019-08-27 17:04:00 80.4 kg [facility] BMI 2019-08-27 17:04:00 33.49 kg/m2 [facility] Procedures Procedure Date / Time Performed Performing Clinician Source US, obstetric, limited 2024-04-09 00:00:00 [facility] US, obstetric, limited 2024-03-11 00:00:00 [facility] ULTRASOUND REPEAT 2024-02-09 00:00:00 [facility] POCT URINALYSIS 2024-02-07 21:28:00 Oxana Willis [facility] TDAP VACCINE, >11 YRS, IM 2024-02-07 18:12:47 Oxana Willis [facility] POCT URINALYSIS 2024-01-24 15:38:00 Oxana Willis [facility] SECOND AND THIRD TRIMESTER ULTRASOUND 2024-01-23 17:31:00 Oxana Willis [facility] POCT URINALYSIS 2024-01-11 15:52:00 Oxana Willis [facility] POCT URINALYSIS 2023-12-14 15:08:00 Oxana Willis [facility] SECOND AND THIRD TRIMESTER ULTRASOUND 2023-12-12 20:12:00 Oxana Willis [facility] POCT URINALYSIS 2023-11-17 15:01:00 Oxana Willis [facility] SECOND AND THIRD TRIMESTER ULTRASOUND 2023-10-27 19:49:46 Oxana Willis [facility] POCT URINALYSIS W/O SPECIFIC GRAVITY 2023-10-20 13:14:00 Oxana Willis [facility] POCT TEST 2023-10-20 13:13:00 Semaj Willis [facility] DISCLOSURE AND CONSENT, MEDICAL AND SURGICAL PROCEDURES 2020-05-13 05:01:00 Doctor Unassigned, [place] [facility] REFERRAL- REQUEST/RESPONSE 2020-05-05 05:01:00 D octor Unassigned, [place] [facility] GARDASIL 9 (HPV 9V) VACCINE 2019-08-27 17:25:50 Oxana Willis [facility] FLU VACC ([id number]), 6+ MONTHS, IM, QUAD 2019-08-27 17:25:50 Oxana Willis [facility] ASSIGNMENT OF BENEFITS 2019-08-27 16:29:37 Docto r Unassigned, [place] [facility] Cholecystectomy [facility] [place] [facility] Encounters Start Date/Time End Date/Time Encounter Type Admission Type Attending Clinicians Care Facility Care Department Encounter ID Source 2023-12-23 14:59:00 Outpatient P [facility] [id number] [facility] 2024-05-08 07:28:00 2024-05-08 07:28:00 Outpatient BENJAMIN KRISHNA [facility] [id number] [facility] 2024-05-07 00:00:00 2024-05-07 00:00:00 Benjamin Sandra MD: [address], [address], [place] [address] , Ph. [phone] [facility] [id number] [facility] 2024-04-13 05:37:00 2024-04-14 10:55:00 Inpatient ER FELIZ [facility] [id number] [facility] 2024-04-13 05:37:00 2024-04-14 10:55:[address] [facility] [id number] [facility] 2024-04-09 11:38:00 2024-04-09 14:05:00 Emergency ER BENJAMIN [facility] [id number] [facility] 2024-04-09 11:38:00 2024-04-09 14:05:00 Departed Emergency Room [facility] [id number] [facility] 2024-04-09 00:00:00 2024-04-09 00:00:00 Benjamin Sandra MD: [address], [address], [place] [address] , Ph. [phone] [facility] [id number] [facility] 2024-04-01 13:53:00 2024-04-01 17:40:00 Emergency ER BENJAMIN [facility] [id number] [facility] 2024-04-01 13:53:00 2024-04-01 17:40:00 Departed Emergency Room [facility] [id number] [facility] 2024-03-27 13:18:00 2024-03-27 13:18:00 Outpatient BENJAMIN KRISHNA [facility] [id number] [facility] 2024-03-27 13:18:00 2024-03-27 13:18:00 Registered Clinic [facility] [id number] [facility] 2024-03-26 00:00:00 2024-03-26 00:00:00 Benjamin Sandra MD: [address], [address], [place] [address] , Ph. [phone] [facility] O[facility]Y [id number] [facility] 2024-03-11 00:00:00 2024-03-11 00:00:00 Benjamin Sandra MD: [address], [address], [place] [id number] , Ph. [phone] [facility] [id number] [facility] 2024-03-02 15:06:00 2024-03-02 16:45:00 Emergency ER ASHLEY TORRES [facility] [id number] [facility] 2024-03-02 15:06:00 2024-03-02 16:45:00 Departed Emergency Room [facility] [id number] [facility] 2024-02-13 14:15:00 2024-02-13 14:15:00 Outpatient BATSHEVA ALVAREZ [facility] [id number] [facility] 2024-02-09 00:00:00 2024-02-09 00:00:00 VALERIE Negron: [address], [address], [place] [address] , Ph. [phone] [facility] [id number] [facility] [facility] 2024-02-07 12:30:00 2024-02-07 13:17:15 Outpatient R OXANA WILLIS [facility] [id number] [facility] 2024-02-07 12:30:00 2024-02-07 13:17:15 Routine Visit Oxana Willis [facility] PARTY [facility] [facility] [id number] [facility] 2024-02-01 00:00:00 2024-02-01 11:38:55 Case Management Fiona Barnard [facility]Y [facility] [id number] [facility] 2024-01-24 00:00:00 2024-01-24 16:36:36 Abstract Oxana Willis [facility] PARTY SUP[facility] SPECIALIST [facility]ILD [facility] [id number] [facility] 2024-01-24 10:15:00 2024-01-24 11:05:22 Outpatient R OXANA WILLIS [facility] [id number] [facility] 2024-01-24 10:15:00 2024-01-24 11:05:22 Routine Visit Oxana Willis [facility] PARTY [facility] [id number] [facility] 2024-01-23 11:00:00 2024-01-23 11:31:03 Harness Inspector Visit Ultrasound, Ang-m Shante Gibbs [facility] PART[facility] [id number] [facility] 2024-01-23 11:00:00 2024-01-23 11:31:03 Outpatient P SHANTE GIBBS [facility] [id number] [facility] 2024-01-11 10:45:00 2024-01-11 11:16:49 Outpatient R OXANA WILLIS [facility] [id number] [facility] 2024-01-11 10:45:00 2024-01-11 11:16:49 Routine Visit Oxaan Willis [facility] PARTY [facility] [id number] [facility] 2023-12-23 10:54:00 2023-12-23 14:58:00 [facility] [id number] [facility] 2023-12-23 10:54:00 2023-12-23 14:58:00 [facility]..114 [id number] [id number] [facility] 2023-12-19 00:00:00 2023-12-19 08:27:12 Telephone Oxana Willis [facility] PARTY SUPPLY SPECIALIST [facility]ILD [facility] 1..840.114 350.1.13.10 4.2.7.2.686 [id number] [facility] 2023-12-14 10:15:00 2023-12-14 10:52:46 Outpatient R ALEXANDRAERNESTOANA MARIAOXANA [facility] [id number] [facility] 2023-12-14 10:15:00 2023-12-14 10:52:46 Routine Visit Oxana Willis [facility] PARTY SUPPLY SPECIALIST [facility] 1.2840.114 350.1.13.10 4.2.7.2.686 [id number] [facility] 2023-12-13 00:00:00 2023-12-13 15:59:04 Abstract AlbaTodOxana C [facility] PARTY SUPPLY SPECIALIST [facility] 1.2840.114 350.1.13.10 4.2.7.2.686 [id number] [facility] 2023-12-12 14:00:00 2023-12-12 15:03:15 Outpatient P SHANTE GIBBS [facility] [id number] [facility] 2023-12-12 14:00:00 2023-12-12 15:03:15 Harness Inspector Visit Ultrasound, Shante Sanchez [facility] 1.2840.114 350.1.13.10 4.2.7.2.686 [id number] [facility] 2023-11-17 09:45:00 2023-11-17 10:56:06 Outpatient R ALBAABDIRASHIDOXANA [facility] [id number] [facility] 2023-11-17 09:45:00 2023-11-17 10:56:06 Routine Visit Oxana Willis [facility] PARTY SUPPLY SPECIALIST [facility]ILD [facility] 1.2840.114 350.1.13.10 4.2.7.2.686 [id number] [facility] 2023-10-27 14:00:00 2023-10-27 14:17:19 Outpatient P BHARGAV VIVAS KARIN [facility] [id number] [facility] 2023-10-27 14:00:00 2023-10-27 14:17:19 Harness Inspector Visit Ultrasound, Bhargav Winters [facility] PARTY SUPPLY SPECIALIST [facility] 1.2.840.114 350.1.13.10 4.2.7.2.686 [id number] [facility] 2023-10-27 00:00:00 2023-10-27 00:00:00 Abstract Oxana Willis [facility] PARTY SUPPLY SPECIALIST [facility] CHILD [facility] 1.2.840.114 350.1.13.10 4.2.7.2.686 [id number] [facility] 2023-10-27 00:00:00 2023-10-27 00:00:00 Telephone Oxana Willis [facility] PARTY SUPPLY SPECIALIST [facility] CHILD [facility] 1.2.840.114 350.1.13.10 4.2.7.2.686 [id number] [facility] 2023-10-25 00:00:00 2023-10-25 00:00:00 Telephone Oxana Willis [facility] PARTY SUPPLY SPECIALIST [facility] CHILD [facility] 1.2.840.114 350.1.13.10 4.2.7.2.686 [id number] [facility] 2023-10-24 00:00:00 2023-10-24 00:00:00 Abstract Oxana Willis [facility] PARTY SUPPLY SPECIALIST [facility] CHILD [facility] 1.2.840.114 350.1.13.10 4.2.7.2.686 [id number] [facility] 2023-10-24 00:00:00 2023-10-24 00:00:00 Telephone Abdirashid Willisilola C [facility] PARTY SUPPLY SPECIALIST [facility] & CHILD [facility] 1.0.114 350.1.13.10 4.2.7.2.686 [id number] [facility] 2023-10-20 07:45:00 2023-10-20 09:39:01 Outpatient R OXANA WILLIS [facility] [id number] [facility] 2023-10-20 07:45:00 2023-10-20 09:39:01 Initial Visit Alba Oxana Walters [facility] PARTY SUPPLY SPECIALIST [facility] & CHILD [facility] 1.0.114 350.1.13.10 4.2.7.2.686 [id number] [facility] 2020-11-10 00:00:00 2020-11-10 00:00:00 Refill Jennifer Guzman [facility] [address] .114 350.1.13.10 4.2.7.2.686 [id number] [facility] 2020-11-05 16:20:00 2020-11-05 16:20:00 Outpatient R JUNIOR MELCHOR [facility] [id number] [facility] 2020-10-15 15:36:50 2020-10-15 16:19:19 Urgent Care Provider[facility]iano [facility] Office [address] ..114 350.1.13.10 4.2.7.2.686 [id number] 2020-10-15 15:36:50 2020-10-15 16:19:19 Urgent Care Provider, [facility] Jennifer Guzman [facility] Office [address] ..114 350.1.13.10 4.2.7.2.686 [id number] [facility] 2020-10-15 16:00:00 2020-10-15 16:00:00 Outpatient JUNIOR KRISHNA [facility] [id number] [facility] 2020-10-13 00:00:00 2020-10-13 00:00:00 Patient Outreach Michael Fernandes [facility] 1.2.840.114 350.1.13.10 4.2.7.2.686 [id number] 2020-10-13 00:00:00 2020-10-13 00:00:00 Patient Outreach Michael Fernandes [facility] 1.2.840.114 350.1.13.10 4.2.7.2.686 [id number] [facility] 2020-09-23 00:00:00 2020-09-23 00:00:00 Refill Oxana Willis [facility] PARTY SUPPLY SPECIALIST [facility] MAT[facility] & CHILD [facility] 1.2.840.114 350.1.13.10 4.2.7.2.686 [id number] 2020-09-23 00:00:00 2020-09-23 00:00:00 Refill Oxana Willis [facility] PARTY SUPPLY SPECIALIST [facility]ILD [facility] 1.2.840.114 350.1.13.10 4.2.7.2.686 [id number] [facility] 2020-05-13 14:43:30 2020-05-13 15:17:12 Office Visit Meg Byrd [facility] PARTY SUPPLY SPECIALIST [facility] MATERNAL & CHILD [facility] 1.2.840.114 350.1.13.10 4.2.7.2.686 [id number] 2020-05-13 14:43:30 2020-05-13 15:17:12 Office Visit Meg Byrd [facility] PARTY SUPPLY SPECIALIST [facility]ILD [facility] 1.2.840.114 350.1.13.10 4.2.7.2.686 [id number] [facility] 2020-05-13 15:00:00 2020-05-13 15:00:00 Outpatient R ROCHELLE MEG [facility] [id number] [facility] 2020-05-13 00:00:00 2020-05-13 00:00:00 Orders Only Doctor Unassigned, [place] [facility] 1.2.840.114 350.1.13.10 4.2.7.2.686 [id number] 2020-05-13 00:00:00 2020-05-13 00:00:00 Orders Only Doctor Unassigned, [place] [facility] 1.2.840.114 350.1.13.10 4.2.7.2.686 [id number] [facility] 2020-05-05 00:00:00 2020-05-05 00:00:00 Orders Only Doctor Unassigned, [place] [facility] 1.2.840.114 350.1.13.10 4.2.7.2.686 [id number] 2020-05-05 00:00:00 2020-05-05 00:00:00 Orders Only Doctor Unassigned, [place] [facility] [facility] 1.2.840.114 350.1.13.10 4.2.7.2.686 [id number] [facility] 2019-10-29 10:30:00 2019-10-29 10:30:00 Outpatient R OXANA WILLIS [facility] [id number] [facility] 2019-09-06 00:00:00 2019-09-06 00:00:00 Telephone Oxana Willis [facility] PARTY SUPPLY SPECIALIST [facility] 1.2.840.114 350.1.13.10 4.2.7.2.686 [id number] [facility] 2019-09-04 00:00:00 2019-09-04 00:00:00 Telephone Oxana Willis [facility] PARTY SUPPLY SPECIALIST [facility] MAT[facility]NAL & [facility]ILD [facility] 1.2.840.114 350.1.13.10 4.2.7.2.686 [id number] [facility] 2019-08-27 10:35:57 2019-08-27 12:04:56 Office Visit Oxana Willis [facility] PARTY SUPPLY SPECIALIST [facility] CHILD [facility] 1.2.840.114 350.1.13.10 4.2.7.2.686 [id number] [facility] 2019-08-27 00:00:00 2019-08-27 00:00:00 Orders Only Doctor Unassigned, [place] [facility] 1..840.114 350.1.13.10 4.2.7.2.686 [id number] [facility] 2017-12-08 11:00:00 2017-12-08 11:00:00 [facility]patient [facility] [id number] [facility] 2017-10-18 11:15:00 2017-10-18 11:15:00 [facility] [id number] [facility] Results Test Description Test Time Test Comments Results Result [facility] qeqhl5719-29-62 07:01:00* Test Item Value Reference Range Interpretation Comme nts Eosinophils # (Auto) (test c ode = QPI9388) 0.06 [facility] CtrRBC cpxgv9555-81-68 07:01:00* Test Item Value Reference Range Interpretation Comme nts Red Blood Count (test code = 50602073) 2.97 [facility] TexJzmxebfusp1396-42-98 07:01:00* Test Item Value Reference Range Interpretation Comme nts Hematocrit (test code = 44975860) 24.9 [facility] CtrMCV (mean corpuscular volume) determination 2024-04-14 07:01:00* Test Item Value Reference Range Interpretation Comme nts Mean Corpuscular Volume (vanna t code = 31629-8) 83.8 [facility] CtrMean corpuscular hemoglobin (MCH) determination 2024-04-14 07:01:00* Test Item Value Reference Range Interpretation Comme [facility] Mean Corpuscular Hemoglobin (test code = 41962406) 25.9 [facility] CtrMean corpuscular hemoglobin concentration (MCHC) zymjifxpcvxsu5593-89-78 07:01:00* Test Item Value Reference Range Interpretation Comme [facility] Mean Corpuscular Hemoglobin Concent (test code = 94703811) 30.9 [facility] CtrRBC distribution width coefficient of variation 2024-04-14 07:01:00* Test Item Value Reference Range Interpretation Comme [facility] Red Cell Distribution Width (test code = 04930134) 13.7 [facility] CtrPlatelet jxrth4778-06-07 07:01:00* Test Item Value Reference Range Interpretation Comme [facility] Platelet Count (test code = 42173399) 332 [facility] CtrMean platelet kvglyu5455-59-94 07:01:00* Test Item Value Reference Range Interpretation Comme [facility] Mean Platelet Volume (test c ode = 00045679) 9.5 [facility] CtrNeutrophils seg % gxv3517-14-97 07:01:00* Test Item Value Reference Range Interpretation Comme [facility] Neutrophils (%) (Auto) (test code = 20979-5) 64.8 [facility] CtrAbsolute immature granulocyte jiyyj3395-95-87 07:01:00* Test Item Value Reference Range Interpretation Comme [facility] Absolute Immature Granulocyt e (auto (test code = 36237-1) 0.04 [facility] CtrBlood band neutrophils count (number/volume) 2024-04-14 07:01:00* Test Item Value Reference Range Interpretation Comme [facility] Neutrophils # (Auto) (test c ode = 04180-2) 5.67 [facility] CtrAbsolute lymphocyte vpnlr7638-43-48 07:01:00* Test Item Value Reference Range Interpretation Comme [facility] Lymphocytes # (Auto) (test c ode = 76651-4) 2.14 [facility] CtrAbsolute basophil upyvk9326-81-70 07:01:00* Test Item Value Reference Range Interpretation Comme nts Basophils # (Auto) (test cod e = 31059873) 0.03 [facility] CtrAbsolute NRBC dfnhl1073-43-77 07:01:00* Test Item Value Reference Range Interpretation Comme nts Nucleated Red Blood Cells # (test code = 315564930) 0 [facility] CtrSerum RPR gwec7288-43-43 14:47:00* Test Item Value Reference Range Interpretation Comme nts Rapid Plasma Reagin (test co de = 00218-2) NONREACTIVE [facility] CtrRBC count ur kvbf6638-04-00 05:45:00* Test Item Value Reference Range Interpretation Comme nts Urine RBC (test code = 798-9) 11-20 [facility] for white blood cells (WBC) 2024-04-13 05:45:00* Test Item Value Reference Range Interpretation Comme nts Urine WBC (test code = 983860704) 0-2 [facility] CtrAutomated epithelial cells count in urine sediment (number/area)2024-04-13 05:45:00* Test Item Value Reference Range Interpretation Comme nts Urine Epithelial Cells (test code = 76691-3) 6-10 [facility] CtrBacteria detection in urine sediment by light uitsecdley5591-01-56 05:45:00* Test Item Value Reference Range Interpretation Comme nts Urine Bacteria (test code = 82906-3) None Seen [facility] CtrUrine casts detection by automated method 2024-04-13 05:45:00* Test Item Value Reference Range Interpretation Comme nts Urine Casts (test code = 82679-8) 0-2 [facility] CtrColor of Urine by Jkiq8087-00-32 05:40:00* Test Item Value Reference Range Interpretation Comme nts Urine Color (test code = 77059-7) Yellow [facility] CtrAppearance of Xvald3873-93-44 05:40:00* Test Item Value Reference Range Interpretation Comme nts Urine Appearance (test code = 5767-9) Clear [facility] Center[facility] glucose ltcavmyzi7193-00-39 05:40:00* Test Item Value Reference Range Interpretation Comme nts Urine Glucose (UA) (test cod e = 2349-9) Negative [facility] CtrBilirubin dc9325-79-45 05:40:00* Test Item Value Reference Range Interpretation Comme nts Urine Bilirubin (test code = 350401566) Negative [facility] CtrKetones wf2921-43-24 05:40:00* Test Item Value Reference Range Interpretation Comme nts Urine Ketones (test code = 64350622) Negative [facility] CtrSpecific gravity of Urine by Automated test strip 2024-04-13 05:40:00* Test Item Value Reference Range Interpretation Comme nts Urine Specific [place] (test code = 47097-6) 1.009 [facility] Center[facility] blood nvrlgcahq2817-70-05 05:40:00* Test Item Value Reference Range Interpretation Comme nts Urine Blood (test code = 24593-9) 2+ (MODERATE) [facility] CtrpH qd9122-95-63 05:40:00* Test Item Value Reference Range Interpretation Comme nts Urine pH (test code = 2756-5) 7.000 [facility] CtrProtein ej2202-70-44 05:40:00* Test Item Value Reference Range Interpretation Comme nts Urine Protein (test code = 05102107) Negative [facility] CtrUrobilinogen, urine, ci1148-03-57 05:40:00* Test Item Value Reference Range Interpretation Comme nts Urine Urobilinogen (test cod e = 807671254) 0.2 [facility] CenterU[facility] nitrate uxlpntfym4736-48-42 05:40:00* Test Item Value Reference Range Interpretation Comme nts Urine Nitrate (test code = 77409-4) Negative [facility] CenterU[facility] leukocyte esterase tauqtohkz1698-05-82 05:40:00* Test Item Value Reference Range Interpretation Comme nts Urine Leukocyte Esterase (te st code = 578754781) Negative [facility] Ctrurinalysis, wgvrnwsh8540-86-17 11:06:12* Test Item Value Reference Range Interpretation Comme nts Leukocytes (test code = Leukocytes) Negative Nitrite (test code = Nitrite) negative Urobilinogen (test code = Urobilinogen) .2 Protein (test code = Protein) Negative pH (test code = pH) 6.5 Blood (test code = Blood) Non-Hemolyzed: Trace Specific [place] (test code = Specific [place]) 1.010 Ketone (test code = Ketone) Negative Bilirubin (test code = Bilirubin) Negative Glucose (test code = Glucose) Negative Appearance (test code = Appearance) Clear Color (test code = Color) Yellow [facility] GroupBilirubin dotwy1092-69-09 15:16:00* Test Item Value Reference Range Interpretation Comme [facility] Total Bilirubin (test code = MVH8781) 0.3 [facility] CtrSerum or plasma urea nitrogen measurement (mass/volume)2024-04-01 15:16:00* Test Item Value Reference Range Interpretation Comme [facility] Blood Urea Nitrogen (test co de = 3094-0) < 4 [facility] YweNNP6148-76-19 15:16:00* Test Item Value Reference Range Interpretation Comme [facility] Aspartate Amino Transf (AST/ SGOT) (test code = LTM2819) 8 [facility] CtrCreatinine tfprv8489-45-23 15:16:00* Test Item Value Reference Range Interpretation Comme nts Creatinine (test code = 551099325) 0.61 [facility] CtrEstimated glomerular filtration rate (GFR) acnadnjzxbmqy4424-01-71 15:16:00* Test Item Value Reference Range Interpretation Comme [facility] Glomerular Filtration Rate C alc (test code = 395073478) > 60.00 [facility] CtrBUN/creatinine qbfhv1112-65-93 15:16:00* Test Item Value Reference Range Interpretation Comme [facility] BUN/Creatinine Ratio (test c ode = 37902428) 6.6 [facility] CtrBody fluid potassium whjqqlpzalc3880-31-97 15:16:00* Test Item Value Reference Range Interpretation Comme nts Potassium Level (test code = 2821-7) 4.0 [facility] YggRS37496-68-38 15:16:00* Test Item Value Reference Range Interpretation Comme nts Carbon Dioxide Level (test c ode = 38149514) 19 [facility] CtrAnion gap gpouzicfxpw4970-92-11 15:16:00* Test Item Value Reference Range Interpretation Comme nts Anion Gap (test code = 62823627) 18.0 [facility] CtrCalcium kwkex6890-69-83 15:16:00* Test Item Value Reference Range Interpretation Comme nts Calcium Level (test code = 01474597) 9.5 [facility] CtrGlobulin qdj3249-36-26 15:16:00* Test Item Value Reference Range Interpretation Comme nts Globulin (test code = 571119043) 3.5 [facility] CtrALT (SGPT) ser/kvww7543-70-67 15:16:00* Test Item Value Reference Range Interpretation Comme nts Alanine Aminotransferase (AL T/SGPT) (test code = 1742-6) < 5 [facility] CtrALP ser/dcth3080-76-82 15:16:00* Test Item Value Reference Range Interpretation Comme nts Total Alkaline Phosphatase ( test code = 6768-6) 173 [facility] CtrBilirubin jfkmw1049-02-91 15:16:00* Test Item Value Reference Range Interpretation Comme nts Total Bilirubin (test code = VWW9420) 0.3 [facility] CtrSerum or plasma urea nitrogen measurement (mass/volume)2024-04-01 15:16:00* Test Item Value Reference Range Interpretation Comme nts Blood Urea Nitrogen (test co de = 3094-0) < 4 [facility] RmdBXO1951-48-45 15:16:00* Test Item Value Reference Range Interpretation Comme nts Aspartate Amino Transf (AST/ SGOT) (test code = NXB5271) 8 [facility] CtrCreatinine vkjug7037-67-94 15:16:00* Test Item Value Reference Range Interpretation Comme nts Creatinine (test code = 662289636) 0.61 [facility] CtrEstimated glomerular filtration rate (GFR) rqezpbpugslpu2153-41-74 15:16:00* Test Item Value Reference Range Interpretation Comme nts Glomerular Filtration Rate C alc (test code = 162875903) > 60.00 [facility] CtrBUN/creatinine nhxtq7781-03-66 15:16:00* Test Item Value Reference Range Interpretation Comme nts BUN/Creatinine Ratio (test c ode = 53867629) 6.6 [facility] CtrBody fluid potassium ondbkobjoeb2911-97-90 15:16:00* Test Item Value Reference Range Interpretation Comme nts Potassium Level (test code = 2821-7) 4.0 [facility] DfqYA55208-24-28 15:16:00* Test Item Value Reference Range Interpretation Comme nts Carbon Dioxide Level (test c ode = 37060406) 19 [facility] CtrAnion gap hvrekixdipz0575-69-08 15:16:00* Test Item Value Reference Range Interpretation Comme nts Anion Gap (test code = 87626776) 18.0 [facility] CtrCalcium fajhp5397-51-31 15:16:00* Test Item Value Reference Range Interpretation Comme nts Calcium Level (test code = 38309120) 9.5 [facility] CtrGlobulin mhw6614-15-07 15:16:00* Test Item Value Reference Range Interpretation Comme nts Globulin (test code = 919067450) 3.5 [facility] CtrALT (SGPT) ser/ugrx6707-70-56 15:16:00* Test Item Value Reference Range Interpretation Comme nts Alanine Aminotransferase (AL T/SGPT) (test code = 1742-6) < 5 [facility] CtrALP ser/mwuq1131-43-41 15:16:00* Test Item Value Reference Range Interpretation Comme nts Total Alkaline Phosphatase ( test code = 6768-6) 173 [facility] CtrBilirubin hlwco9931-20-36 15:16:00* Test Item Value Reference Range Interpretation Comme nts Total Bilirubin (test code = HUQ2139) 0.3 [facility] CtrSerum or plasma urea nitrogen measurement (mass/volume)2024-04-01 15:16:00* Test Item Value Reference Range Interpretation Comme nts Blood Urea Nitrogen (test co de = 3094-0) < 4 [facility] NufWIR0249-63-96 15:16:00* Test Item Value Reference Range Interpretation Comme nts Aspartate Amino Transf (AST/ SGOT) (test code = NSH3407) 8 [facility] CtrCreatinine kbmna4580-40-89 15:16:00* Test Item Value Reference Range Interpretation Comme nts Creatinine (test code = 239688145) 0.61 [facility] CtrEstimated glomerular filtration rate (GFR) nzvbaoapddwdh7717-54-94 15:16:00* Test Item Value Reference Range Interpretation Comme nts Glomerular Filtration Rate C alc (test code = 112164804) > 60.00 [facility] CtrBUN/creatinine mixhd8824-89-61 15:16:00* Test Item Value Reference Range Interpretation Comme nts BUN/Creatinine Ratio (test c ode = 79530450) 6.6 [facility] CtrBody fluid potassium ewltsbxtwya2677-93-46 15:16:00* Test Item Value Reference Range Interpretation Comme nts Potassium Level (test code = 2821-7) 4.0 [facility] JdrYL94368-54-03 15:16:00* Test Item Value Reference Range Interpretation Comme nts Carbon Dioxide Level (test c ode = 66808721) 19 [facility] CtrAnion gap zqxtlpczwtd4833-65-45 15:16:00* Test Item Value Reference Range Interpretation Comme nts Anion Gap (test code = 16823233) 18.0 [facility] CtrCalcium pyiko8137-80-33 15:16:00* Test Item Value Reference Range Interpretation Comme nts Calcium Level (test code = 99859562) 9.5 [facility] CtrGlobulin qxi1249-87-39 15:16:00* Test Item Value Reference Range Interpretation Comme nts Globulin (test code = 383326767) 3.5 [facility] CtrALT (SGPT) ser/gjal4440-72-02 15:16:00* Test Item Value Reference Range Interpretation Comme nts Alanine Aminotransferase (AL T/SGPT) (test code = 1742-6) < 5 [facility] CtrALP ser/atnl5478-70-65 15:16:00* Test Item Value Reference Range Interpretation Comme nts Total Alkaline Phosphatase ( test code = 6768-6) 173 [facility] CtrBlood band neutrophils count (number/volume) 2024-04-01 14:56:00* Test Item Value Reference Range Interpretation Comme nts Neutrophils # (Auto) (test c ode = 75177-7) 7.15 [facility] CtrAbsolute lymphocyte gjgym8508-82-03 14:56:00* Test Item Value Reference Range Interpretation Comme nts Lymphocytes # (Auto) (test c ode = 69810-7) 0.50 [facility] CtrAbsolute basophil wgsxi7481-79-73 14:56:00* Test Item Value Reference Range Interpretation Comme nts Basophils # (Auto) (test cod e = 52159051) 0.04 [facility] CtrAbsolute NRBC mjvmr3955-93-71 14:56:00* Test Item Value Reference Range Interpretation Comme nts Nucleated Red Blood Cells # (test code = 199291890) 0 [facility] CtrAbsolute eosinophil blmix0823-00-89 14:56:00* Test Item Value Reference Range Interpretation Comme nts Eosinophils # (Auto) (test c ode = HQK1175) 0.01 [facility] CtrRBC wrzhm2962-10-84 14:56:00* Test Item Value Reference Range Interpretation Comme nts Red Blood Count (test code = 14329000) 3.67 [facility] AbhZmatzwfqgi3158-78-46 14:56:00* Test Item Value Reference Range Interpretation Comme nts Hematocrit (test code = 03024111) 31.4 [facility] CtrMCV (mean corpuscular volume) determination 2024-04-01 14:56:00* Test Item Value Reference Range Interpretation Comme [facility] Mean Corpuscular Volume (vanna t code = 14396-5) 85.6 [facility] CtrMean corpuscular hemoglobin (MCH) determination 2024-04-01 14:56:00* Test Item Value Reference Range Interpretation Comme [facility] Mean Corpuscular Hemoglobin (test code = 97143409) 26.4 [facility] CtrMean corpuscular hemoglobin concentration (MCHC) okdnqlpxfhvbl6377-18-21 14:56:00* Test Item Value Reference Range Interpretation Comme [facility] Mean Corpuscular Hemoglobin Concent (test code = 36778887) 30.9 [facility] CtrRBC distribution width coefficient of variation 2024-04-01 14:56:00* Test Item Value Reference Range Interpretation Comme [facility] Red Cell Distribution Width (test code = 93394694) 13.0 [facility] CtrPlatelet xedsu4175-50-01 14:56:00* Test Item Value Reference Range Interpretation Comme [facility] Platelet Count (test code = 50288987) 351 [facility] CtrMean platelet przvss4375-59-38 14:56:00* Test Item Value Reference Range Interpretation Comme nts Mean Platelet Volume (test c ode = 53866185) 9.3 [facility] CtrNeutrophils seg % uyq8768-38-99 14:56:00* Test Item Value Reference Range Interpretation Comme [facility] Neutrophils (%) (Auto) (test code = 68560-6) 86.8 [facility] immature granulocyte nmqgx6295-26-54 14:56:00* Test Item Value Reference Range Interpretation Comme [facility] Absolute Immature Granulocyt e (auto (test code = 87982-7) 0.03 [facility] CenterBlood band neutrophils count (number/volume) 2024-04-01 14:56:00* Test Item Value Reference Range Interpretation Comme nts Neutrophils # (Auto) (test c ode = 51698-7) 7.15 [facility] CtrAbsolute lymphocyte ssyws7644-40-47 14:56:00* Test Item Value Reference Range Interpretation Comme [facility] Lymphocytes # (Auto) (test c ode = 64635-0) 0.50 [facility] CtrAbsolute basophil [id number] 14:56:00* Test Item Value Reference Range Interpretation Comme [facility] Basophils # (Auto) (test cod e = 20646830) 0.04 [facility] CenterAbsolute NRBC dujoh9375-25-12 14:56:00* Test Item Value Reference Range Interpretation Comme nts Nucleated Red Blood Cells # (test code = 298811445) 0 [facility] CtrAbsolute eosinophil [id number] 14:56:00* Test Item Value Reference Range Interpretation Comme nts Eosinophils # (Auto) (test c ode = MDU5899) 0.01 [facility] CtrRBC qtjul0849-96-65 14:56:00* Test Item Value Reference Range Interpretation Comme [facility] Red Blood Count (test code = 20258269) 3.67 [facility] CceEkiygepvbu1901-95-40 14:56:00* Test Item Value Reference Range Interpretation Comme [facility] Hematocrit (test code = 79005862) 31.4 [facility] CtrMCV (mean corpuscular volume) determination 2024-04-01 14:56:00* Test Item Value Reference Range Interpretation Comme [facility] Mean Corpuscular Volume (vanna t code = 84499-8) 85.6 [facility] CtrMean corpuscular hemoglobin (MCH) determination 2024-04-01 14:56:00* Test Item Value Reference Range Interpretation Comme [facility] Mean Corpuscular Hemoglobin (test code = 09694582) 26.4 [facility] CtrMean corpuscular hemoglobin concentration (MCHC) iycmfhseyymyv9966-02-09 14:56:00* Test Item Value Reference Range Interpretation Comme [facility] Mean Corpuscular Hemoglobin Concent (test code = 72524967) 30.9 [facility] CtrRBC distribution width coefficient of variation 2024-04-01 14:56:00* Test Item Value Reference Range Interpretation Comme [facility] Red Cell Distribution Width (test code = 86272545) 13.0 [facility] CtrPlatelet [id number] 14:56:00* Test Item Value Reference Range Interpretation Comme [facility] Platelet Count (test code = 49180253) 351 [facility] CtrMean platelet fsvjwt4823-90-72 14:56:00* Test Item Value Reference Range Interpretation Comme [facility] Mean Platelet Volume (test c ode = 04250445) 9.3 [facility] CtrNeutrophils seg % mys1535-99-03 14:56:00* Test Item Value Reference Range Interpretation Comme [facility] Neutrophils (%) (Auto) (test code = 80639-9) 86.8 [facility] CtrAbsolute immature granulocyte jvfvu1108-02-92 14:56:00* Test Item Value Reference Range Interpretation Comme nts Absolute Immature Granulocyt e (auto (test code = 43099-6) 0.03 [facility] CtrBlood band neutrophils count (number/volume) 2024-04-01 14:56:00* Test Item Value Reference Range Interpretation Comme nts Neutrophils # (Auto) (test c ode = 62489-7) 7.15 [facility] CtrAbsolute lymphocyte etgpp0987-57-30 14:56:00* Test Item Value Reference Range Interpretation Comme nts Lymphocytes # (Auto) (test c ode = 63098-1) 0.50 [facility] CtrAbsolute basophil koibr1949-88-04 14:56:00* Test Item Value Reference Range Interpretation Comme nts Basophils # (Auto) (test cod e = 28337461) 0.04 [facility] CenterAbsolute NRBC rsmdw7868-68-73 14:56:00* Test Item Value Reference Range Interpretation Comme nts Nucleated Red Blood Cells # (test code = 866004972) 0 [facility] CtrAbsolute eosinophil nnprt0929-24-29 14:56:00* Test Item Value Reference Range Interpretation Comme nts Eosinophils # (Auto) (test c ode = FEJ0671) 0.01 [facility] CtrRBC ymejv0984-14-83 14:56:00* Test Item Value Reference Range Interpretation Comme [facility] Red Blood Count (test code = 19455121) 3.67 [facility] IsvNfmarcojkk5839-15-55 14:56:00* Test Item Value Reference Range Interpretation Comme [facility] Hematocrit (test code = 71989710) 31.4 [facility] CtrMCV (mean corpuscular volume) determination 2024-04-01 14:56:00* Test Item Value Reference Range Interpretation Comme [facility] Mean Corpuscular Volume (vanna t code = 89855-6) 85.6 [facility] CtrMean corpuscular hemoglobin (MCH) determination 2024-04-01 14:56:00* Test Item Value Reference Range Interpretation Comme [facility] Mean Corpuscular Hemoglobin (test code = 18931712) 26.4 [facility] CtrMean corpuscular hemoglobin concentration (MCHC) kupyqrkvnsktp9084-05-31 14:56:00* Test Item Value Reference Range Interpretation Comme [facility] Mean Corpuscular Hemoglobin Concent (test code = 07670141) 30.9 [facility] CtrRBC distribution width coefficient of variation 2024-04-01 14:56:00* Test Item Value Reference Range Interpretation Comme [facility] Red Cell Distribution Width (test code = 70768849) 13.0 [facility] CtrPlatelet envnw7869-85-86 14:56:00* Test Item Value Reference Range Interpretation Comme [facility] Platelet Count (test code = 33401569) 351 [facility] CtrMean platelet qdhgyw9372-87-78 14:56:00* Test Item Value Reference Range Interpretation Comme [facility] Mean Platelet Volume (test c ode = 19204560) 9.3 [facility] CtrNeutrophils seg % [id number] 14:56:00* Test Item Value Reference Range Interpretation Comme [facility] Neutrophils (%) (Auto) (test code = 60699-0) 86.8 [facility] CtrAbsolute immature granulocyte mmsua5707-17-22 14:56:00* Test Item Value Reference Range Interpretation Comme [facility] Absolute Immature Granulocyt e (auto (test code = 83573-1) 0.03 [facility] CtrReagin Ab [Presence] in Serum by [id number] 15:10:00* Test Item Value Reference Range Interpretation Comme [facility] RPR (test code = RPR) NONREACTIVE nonreactive [facility] GroupSerum RPR [id number] 15:10:00* Test Item Value Reference Range Interpretation Comme [facility] Rapid Plasma Reagin (test co de = 44556-3) NONREACTIVE [facility] CtrSerum RPR [id number] 15:10:00* Test Item Value Reference Range Interpretation Comme nts Rapid Plasma Reagin (test co de = 06817-8) NONREACTIVE [facility] CtrSerum RPR [id number] 15:10:00* Test Item Value Reference Range Interpretation Comme [facility] Rapid Plasma Reagin (test co de = 50948-6) NONREACTIVE [facility] CtrHIV 1+2 Ab [Presence] in Plwkf4668-99-23 15:34:00 * Test Item Value Reference Range Interpretation Comme nts HIV P24 Ag (test code = HIV P24 Ag) NON-REACTIVE nonreactive HIV-1/2 Ab (test code = HIV- 1/2 Ab) [facility]ACT[facility] - [id number] 14:37:00 * Test Item Value Reference Range Interpretation Comme nts white blood count (test code = white blood count) 8.3 K/uL 4.0-11.5 red blood count (test code = red blood count) 3.68 M/uL 3.80-5.20 L hemoglobin (test code = hemoglobin) 9.8 g/dL 10.5-15.7 L hematocrit (test code = hematocrit) 31.0 % 34.0-50.0 L mean corpuscular volume (vanna t code = mean corpuscular volume) 84.2 fL 86.0-100.0 L mean corpuscular hemoglobin (test code = mean corpuscular hemoglobin) 26.6 pg 26.2-33.4 mean corpuscular HGB conc (t est code = mean corpuscular HGB conc) 31.6 g/dL 30.0-34.0 red cell distribution width (test code = red cell distribution width) 12.8 % 12.0-15.5 platelet count (test code = platelet count) 417 K/uL 165-450 mean platelet volume (test c ode = mean platelet volume) 10.0 fL 9.4-12.6 neutrophils % (test code = neutrophils %) 73.7 % 44.4-80.1 Ig% (test code = Ig%) 0.5 % 0.0-0.4 H lymphocyte% (test code = lymphocyte%) 18.5 % 10.0-50.0 mono % (test code = mono %) 6.4 % 3.6-12.0 eos % (test code = eos %) 0.4 % 0.0-5.4 basophil % (test code = baso soto %) 0.5 % 0.1-1.2 absolute neutrophil count (t est code = absolute neutrophil count) 6.08 K/uL 1.56-6.13 Ig# (test code = Ig#) 0.04 K/uL 0.00-0.03 H lymph # (test code = lymph #) 1.53 K/uL 1.18-3.74 mono # (test code = mono #) 0.53 K/uL 0.24-0.86 eos # (test code = eos #) 0.03 K/uL 0.04-0.36 L basophil # (test code = baso soto #) 0.04 K/uL 0.01-0.08 NRBC% (test code = NRBC%) 0 /100 WBC 0-0.2 NRBC# (test code = NRBC#) 0 K/uL [facility] GroupBlood group antibody screen [Presence] in Serum or Plasma 2024-03-27 13:52:00* Test Item Value Reference Range Interpretation Comme nts ind jerry (test code = ind jerry) NEGATIVE [facility] GroupSTI [id number] 00:00:00* Test Item Value Reference Range Interpretation Comme nts CT/NG (test code = CT/NG) NORMAL trichomonas vaginalis addon - swab (test code = trichomonas vaginalis addon - swab) NORMAL [facility] GroupStreptococcus agalactiae [Presence] in Vag+Rectum by Organism specific [id number] 00:00:00* Test Item Value Reference Range Interpretation Comme nts group B strep (test code = g roup B strep) NEGATIVE [facility] Groupurinalysis, vicslfcn8837-76-63 09:21:38* Test Item Value Reference Range Interpretation Comme nts Leukocytes (test code = Leukocytes) Negative Nitrite (test code = Nitrite) negative Urobilinogen (test code = Urobilinogen) .2 Protein (test code = Protein) Negative pH (test code = pH) 6.5 Blood (test code = Blood) Negative Specific [place] (test code = Specific [place]) 1.010 Ketone (test code = Ketone) Negative Bilirubin (test code = Bilirubin) Negative Glucose (test code = Glucose) 100 Appearance (test code = Appearance) Clear Color (test code = Color) Yellow [facility] Groupurinalysis, bhchjsns5373-75-29 10:45:46* Test Item Value Reference Range Interpretation Comme nts Leukocytes (test code = Leukocytes) Negative Nitrite (test code = Nitrite) negative Urobilinogen (test code = Urobilinogen) .2 Protein (test code = Protein) Negative pH (test code = pH) 7.0 Blood (test code = Blood) Negative Specific [place] (test code = Specific [place]) 1.015 Ketone (test code = Ketone) Negative Bilirubin (test code = Bilirubin) Negative Glucose (test code = Glucose) Negative Appearance (test code = Appearance) Clear Color (test code = Color) Yellow [facility] Groupculture,urine pres id rlkqo9274-25-08 09:49:00* Test Item Value Reference Range Interpretation Comme nts culture,urine (test code = culture,urine) SCANT SKIN TJ PRESENT. PATHOGEN NOT PRESENT AT 2 DAYS. [facility] akwkxaf9700-89-28 15:57:00* Test Item Value Reference Range Interpretation Comme nts Urine Culture (test code = 630-4) SPECIMEN HAS BEEN RECEIVED IN LAB AND IS IN PROGRESS. [facility] CtrUrine blood [id number] 15:55:00* Test Item Value Reference Range Interpretation Comme [facility] Urine Blood (test code = 02308-6) Nonhemolyzed Trace [facility] CtrColor of Urine by Zfkn3884-98-62 15:55:00* Test Item Value Reference Range Interpretation Comme nts Urine Color (test code = 17794-0) Yellow [facility] CtrAppearance of [id number] 15:55:00* Test Item Value Reference Range Interpretation Comme nts Urine Appearance (test code = 5767-9) Clear [facility] CtrUrine glucose xmfzroxkh7267-60-21 15:55:00* Test Item Value Reference Range Interpretation Comme [facility] Urine Glucose (UA) (test cod e = 2349-9) Negative [facility] CtrBilirubin [id number] 15:55:00* Test Item Value Reference Range Interpretation Comme [facility] Urine Bilirubin (test code = 980458910) Negative [facility] CtrKetones [id number] 15:55:00* Test Item Value Reference Range Interpretation Comme [facility] Urine Ketones (test code = 20796098) Trace [facility] CtrSpecific gravity of Urine by Automated test strip 2024-03-02 15:55:00* Test Item Value Reference Range Interpretation Comme nts Urine Specific [place] (test code = 36781-4) 1.016 [facility] CtrpH [id number] 15:55:00* Test Item Value Reference Range Interpretation Comme nts Urine pH (test code = 2756-5) 6.000 [facility] CenterU[facility] blood opwikqowy4540-91-96 15:55:00* Test Item Value Reference Range Interpretation Comme nts Urine Blood (test code = 25519-0) Nonhemolyzed Trace [facility] CtrpH [id number] 15:55:00* Test Item Value Reference Range Interpretation Comme nts Urine pH (test code = 2756-5) 6.000 [facility] CtrProtein [id number] 15:55:00* Test Item Value Reference Range Interpretation Comme [facility] Urine Protein (test code = 64416223) Negative [facility] CtrUrobilinogen, urine, [id number] 15:55:00* Test Item Value Reference Range Interpretation Comme [facility] Urine Urobilinogen (test cod e = 948125856) 1.0 [facility] CenterU[facility] nitrate vptrwbssl9102-54-34 15:55:00* Test Item Value Reference Range Interpretation Comme [facility] Urine Nitrate (test code = 17794-5) Negative [facility] CenterUrine leukocyte esterase zmlrrnxge3488-13-60 15:55:00* Test Item Value Reference Range Interpretation Comme [facility] Urine Leukocyte Esterase (te st code = 002212857) Trace [facility] CtrRBC count ur qpyi1987-45-17 15:55:00* Test Item Value Reference Range Interpretation Comme [facility] Urine RBC (test code = 798-9) 3-5 [facility] CtrUrine examination for white blood cells (WBC) 2024-03-02 15:55:00* Test Item Value Reference Range Interpretation Comme [facility] Urine WBC (test code = 668279609) 0-2 [facility] CtrAutomated epithelial cells count in urine sediment (number/area)2024-03-02 15:55:00* Test Item Value Reference Range Interpretation Comme nts Urine Epithelial Cells (test code = 82983-5) -10 [facility] CtrBacteria detection in urine sediment by light gliizpbwhl2235-77-28 15:55:00* Test Item Value Reference Range Interpretation Comme nts Urine Bacteria (test code = 98725-3) None Seen [facility] CtrProtein [id number] 15:55:00* Test Item Value Reference Range Interpretation Comme nts Urine Protein (test code = 46184083) Negative [facility] CtrUrine casts detection by automated method 2024-03-02 15:55:00* Test Item Value Reference Range Interpretation Comme nts Urine Casts (test code = 10046-0) 0-2 [facility] CtrUrobilinogen, urine, [id number] 15:55:00* Test Item Value Reference Range Interpretation Comme nts Urine Urobilinogen (test cod e = 137863187) 1.0 [facility] CenterU[facility] nitrate tgawxudej2368-26-04 15:55:00* Test Item Value Reference Range Interpretation Comme nts Urine Nitrate (test code = 78876-5) Negative [facility] CenterUrine leukocyte esterase eqkezwdyv8216-83-73 15:55:00* Test Item Value Reference Range Interpretation Comme nts Urine Leukocyte Esterase (te st code = 876046879) Trace [facility] CtrRBC count ur bkui1483-29-10 15:55:00* Test Item Value Reference Range Interpretation Comme nts Urine RBC (test code = 798-9) 3-5 [facility] CtrUrine examination for white blood cells (WBC) 2024-03-02 15:55:00* Test Item Value Reference Range Interpretation Comme nts Urine WBC (test code = 822234128) 0-2 [facility] CtrAutomated epithelial cells count in urine sediment (number/area)2024-03-02 15:55:00* Test Item Value Reference Range Interpretation Comme nts Urine Epithelial Cells (test code = 69150-4) 6- [facility] CtrBacteria detection in urine sediment by light fxoawaboor6899-26-59 15:55:00* Test Item Value Reference Range Interpretation Comme nts Urine Bacteria (test code = 29264-3) None Seen [facility] CtrUrine casts detection by automated method 2024-03-02 15:55:00* Test Item Value Reference Range Interpretation Comme nts Urine Casts (test code = 77034-6) 0-2 [facility] CtrColor of Urine by Uhwr4722-25-23 15:55:00* Test Item Value Reference Range Interpretation Comme nts Urine Color (test code = 30819-5) Yellow [facility] CtrColor of Urine by Eeyd1345-35-07 15:55:00* Test Item Value Reference Range Interpretation Comme nts Urine Color (test code = 67570-9) Yellow [facility] CtrAppearance of Wzrjp7548-05-62 15:55:00* Test Item Value Reference Range Interpretation Comme nts Urine Appearance (test code = 5767-9) Clear [facility] CenterUrine glucose gjptxhesb2101-99-64 15:55:00* Test Item Value Reference Range Interpretation Comme nts Urine Glucose (UA) (test cod e = 2349-9) Negative [facility] CtrBilirubin [id number] 15:55:00* Test Item Value Reference Range Interpretation Comme nts Urine Bilirubin (test code = 706773862) Negative [facility] CtrKetones ez1210-23-04 15:55:00* Test Item Value Reference Range Interpretation Comme nts Urine Ketones (test code = 90629198) Trace [facility] CtrAppearance of Adsxw3734-27-94 15:55:00* Test Item Value Reference Range Interpretation Comme nts Urine Appearance (test code = 5767-9) Clear [facility] CtrSpecific gravity of Urine by Automated test strip 2024-03-02 15:55:00* Test Item Value Reference Range Interpretation Comme nts Urine Specific [place] (test code = 97274-7) 1.016 [facility] CenterUrine blood yhalmewkc1452-72-90 15:55:00* Test Item Value Reference Range Interpretation Comme nts Urine Blood (test code = 71211-7) Nonhemolyzed Trace [facility] CtrpH [id number] 15:55:00* Test Item Value Reference Range Interpretation Comme nts Urine pH (test code = 2756-5) 6.000 [facility] CtrProtein [id number] 15:55:00* Test Item Value Reference Range Interpretation Comme nts Urine Protein (test code = 31578339) Negative [facility] CtrUrobilinogen, urine, [id number] 15:55:00* Test Item Value Reference Range Interpretation Comme nts Urine Urobilinogen (test cod e = 865171583) 1.0 [facility] CtrUrine nitrate urzdotsem6846-40-41 15:55:00* Test Item Value Reference Range Interpretation Comme nts Urine Nitrate (test code = 93384-1) Negative [facility] CenterUrine leukocyte esterase pxduwswhn4852-73-12 15:55:00* Test Item Value Reference Range Interpretation Comme nts Urine Leukocyte Esterase (te st code = 857371333) Trace [facility] CtrRBC count ur uzdd6390-49-77 15:55:00* Test Item Value Reference Range Interpretation Comme nts Urine RBC (test code = 798-9) 3-5 [facility] CtrUrine examination for white blood cells (WBC) 2024-03-02 15:55:00* Test Item Value Reference Range Interpretation Comme nts Urine WBC (test code = 399169064) 0-[address] [facility] [facility] CtrAutomated epithelial cells count in urine sediment (number/area)2024-03-02 15:55:00* Test Item Value Reference Range Interpretation Comme nts Urine Epithelial Cells (test code = 13603-1) 6-10 [facility] CtrUrine glucose [id number] 15:55:00* Test Item Value Reference Range Interpretation Comme nts Urine Glucose (UA) (test cod e = 2349-9) Negative [facility] CtrBacteria detection in urine sediment by light [id number] 15:55:00* Test Item Value Reference Range Interpretation Comme nts Urine Bacteria (test code = 18923-3) None Seen [facility] CtrUrine casts detection by automated method 2024-03-02 15:55:00* Test Item Value Reference Range Interpretation Comme nts Urine Casts (test code = 03084-4) 0-2 [facility] CtrBilirubin [id number] 15:55:00* Test Item Value Reference Range Interpretation Comme nts Urine Bilirubin (test code = 818767336) Negative [facility] CtrKetones [id number] 15:55:00* Test Item Value Reference Range Interpretation Comme nts Urine Ketones (test code = 28665126) Trace [facility] CtrSpecific gravity of Urine by Automated test strip 2024-03-02 15:55:00* Test Item Value Reference Range Interpretation Comme nts Urine Specific [place] (test code = 37551-7) 1.016 [facility] [id number] 15:49:00* Test Item Value Reference Range Interpretation Comme nts color, urine (test code = color, urine) Yellow appearance, urine (test code = appearance, urine) Clear clear urine glucose (test code = urine glucose) Negative negative bilirubin, urine (test code = bilirubin, urine) Negative negative ketone, urine (test code = ketone, urine) Trace negative specific gravity,urine (test code = specific gravity,urine) 1.016 1.003-1.030 blood urine (test code = blood urine) Nonhemolyzed Trace negative A pH,urine (test code = pH,urine) 6.000 5-9 protein urine (UA) (test code = protein urine (UA)) Negative negative urobilinogen, urine (test code = urobilinogen, urine) 1.0 mg/dL 0.2-1.0 nitrate, urine (test code = nitrate, urine) Negative negative urine leukocyte esterase (test code = urine leukocyte esterase) Trace negative A RBC, urine (test code = RBC, urine) 3-5 0-5 WBC, urine (test code = WBC, urine) 0-2 0-5 epithelial cell (test code = epithelial cell) 6-10 0-5 A bacteria, urine (test code = bacteria, urine) None Seen none detect casts,urine (test code = casts,urine) 0-2 none detect A urine culture added? (test code = urine culture added?) YES [facility] GroupUrinalysis macro (dipstick) panel - [id number] 14:08:57* Test Item Value Reference Range Interpretation Comme nts Leukocytes (test code = Leukocytes) Negative Nitrite (test code = Nitrite) negative Urobilinogen (test code = Urobilinogen) .2 Protein (test code = Protein) Negative pH (test code = pH) 7.0 Blood (test code = Blood) Negative Specific [place] (test code = Specific [place]) 1.020 Ketone (test code = Ketone) Small Bilirubin (test code = Bilirubin) Negative Glucose (test code = Glucose) Negative Appearance (test code = Appearance) Clear Color (test code = Color) Yellow [facility] [id number] 14:08:57* Test Item Value Reference Range Interpretation Comme nts Leukocytes (test code = Leukocytes) Negative Nitrite (test code = Nitrite) negative Urobilinogen (test code = Urobilinogen) .2 Protein (test code = Protein) Negative pH (test code = pH) 7.0 Blood (test code = Blood) Negative Specific [place] (test code = Specific [place]) 1.020 Ketone (test code = Ketone) Small Bilirubin (test code = Bilirubin) Negative Glucose (test code = Glucose) Negative Appearance (test code = Appearance) Clear Color (test code = Color) Yellow [facility] URINALYSIS W SPECIFIC [id number] 21:29:00* Test Item Value Reference Range Interpretation Comme [...] POCT U APPEAR (test code = 3267) [facility] URINALYSIS W SPECIFIC [id number] 15:38:00* Test Item Value Reference Range Interpretation Comme [...] POCT U COLOR (test code = 3266) . POCT U APPEAR (test code = 3267) . [facility] URINALYSIS W SPECIFIC [id number] 15:52:00* Test Item Value Reference Range Interpretation Comme [...] POCT U APPEAR (test code = 3267) [facility] URINALYSIS W SPECIFIC [id number] 15:08:00* Test Item Value Reference Range Interpretation Comme nts POCT U SP GRAV (test code = 3255) . 1.005-1.025 POCT PH U (test code = 3254) . 5-8 POCT U LEUK EST (test code = 3263) . Negative - N egative POCT U NIT (test code = 3262) . Negative - Negati ve POCT U PROT (test code = 3259) neg Negative - Negat karli POCT U GLU [...] POCT U APPEAR (test code = 3267) [facility] URINALYSIS W SPECIFIC [id number] 15:08:00* Test Item Value Reference Range Interpretation Comme nts POCT U SP GRAV (test code = 3255) . 1.005-1.025 POCT PH U (test code = 3254) . 5-8 POCT U LEUK EST (test code = 3263) . Negative - N egative POCT U NIT (test code = 3262) . Negative - Negati ve POCT U PROT (test code = 3259) neg Negative - Negat karli POCT U GLU [...] POCT U APPEAR (test code = 3267) [facility] URINALYSIS W SPECIFIC [id number] 15:01:00* Test Item Value Reference Range Interpretation [...] POCT U APPEAR (test code = 3267) [facility] URINALYSIS W SPECIFIC [id number] 15:01:00* Test Item Value Reference Range Interpretation [...] POCT U APPEAR (test code = 3267) [facility] URINALYSIS W SPECIFIC [id number] 15:01:00* Test Item Value Reference Range Interpretation [...] POCT U APPEAR (test code = 3267) [facility] URINALYSIS W SPECIFIC [id number] 15:01:00* Test Item Value Reference Range Interpretation [...] POCT U APPEAR (test code = 3267) [facility] Urinalysis w/o Specific [id number] 13:14:00* Test Item Value Reference Range Interpretation [...] = 3257) neg Negative - Negati ve [facility] Urinalysis w/o Specific [id number] 13:14:00* Test Item Value Reference Range Interpretation [...] = 3257) neg Negative - Negati ve [facility] Urinalysis w/o Specific [id number] 13:14:00* Test Item Value Reference Range Interpretation [...] = 3257) neg Negative - Negati ve [facility] Urinalysis w/o Specific [id number] 13:14:00* Test Item Value Reference Range Interpretation [...] = 3257) neg Negative - Negati ve [facility] Urinalysis w/o Specific [id number] 13:14:00* Test Item Value Reference Range Interpretation [...] = 3257) neg Negative - Negati ve [facility] Urinalysis w/o Specific [id number] 13:14:00* Test Item Value Reference Range Interpretation [...] = 3257) neg Negative - Negati ve [facility] Urinalysis w/o Specific [id number] 13:14:00* Test Item Value Reference Range Interpretation [...] = 3257) neg Negative - Negati ve [facility] [id number] 13:13:00* Test Item Value Reference Range Interpretation Comme nts POCT PREG (test code = 1605) Positive On board controls acceptable with C Line (test code = 3574) Yes POCT PREG LOT # (test code = 3575) POCT PREG TEST DATE ( test code = 3576) [facility] [id number] 13:13:00* Test Item Value Reference Range Interpretation Comme nts POCT PREG (test code = 1605) Positive On board controls acceptable with C Line (test code = 3574) Yes POCT PREG LOT # (test code = 3575) POCT PREG TEST DATE ( test code = 3576) [facility] [id number] 13:13:00* Test Item Value Reference Range Interpretation Comme nts POCT PREG (test code = 1605) Positive On board controls acceptable with C Line (test code = 3574) Yes POCT PREG LOT # (test code = 3575) POCT PREG TEST DATE ( test code = 3576) [facility] [id number] 13:13:00* Test Item Value Reference Range Interpretation Comme nts POCT PREG (test code = 1605) Positive On board controls acceptable with C Line (test code = 3574) Yes POCT PREG LOT # (test code = 3575) POCT PREG TEST DATE ( test code = 3576) [facility] [id number] 13:13:00* Test Item Value Reference Range Interpretation Comme nts POCT PREG (test code = 1605) Positive On board controls acceptable with C Line (test code = 3574) Yes POCT PREG LOT # (test code = 3575) POCT PREG TEST DATE ( test code = 3576) [facility] [id number] 13:13:00* Test Item Value Reference Range Interpretation Comme nts POCT PREG (test code = 1605) Positive On board controls acceptable with C Line (test code = 3574) Yes POCT PREG LOT # (test code = 3575) POCT PREG TEST DATE ( test code = 3576) [facility] [id number] 13:13:00* Test Item Value Reference Range Interpretation Comme nts POCT PREG (test code = 1605) Positive On board controls acceptable with C Line (test code = 3574) Yes POCT PREG LOT # (test code = 3575) POCT PREG TEST DATE ( test code = 3576) [facility]
[2024-07-15 17:20] LABS: Absolute Basophils 0.1 K/uL (0-0.5); Absolute Lymphocytes (CBC) 1.7 K/uL (0.7-4.9); Absolute Monocytes 1.3 K/uL (0.1-1.3); Absolute Neutrophil 9.6 K/uL (1.8-8.0); Basophils % 0.4 % (0-1.3); Eosinophils % 0.1 % (0-4.4); Hematocrit 34.5 % (36.0-45.0); Hemoglobin 11.1 g/dL (12.0-15.0); Lymphocytes % 13.1 % (15.3-44.8); MCH 27.1 pg (27.0-35.0); MCHC 32.2 g/dL (32.0-36.0); MCV 84.1 fL (80-100); MPV 7.3 fL (7.6-11.3); Monocytes % 10.6 % (3.3-12.3); Neutrophils % 75.8 % (41.7-73.7); Platelets 420 thou/uL (152-406); RBC Red Blood Cell Count 4.11 M/uL (3.86-4.86); Red Cell Distribution Width 15.9 % (12.1-15.2)
[2024-07-15] MEDS ORDERED: ONDANSETRON 4 MG/2 ML VIAL ONE (17:20)
[2024-07-15] MEDS ORDERED: NA CHLORIDE 0.9% 1,000 ML ONE (17:20)
[2024-07-15] MEDS ORDERED: ACETAMINOPHEN 500 MG TAB ONE (17:21)
[2024-07-15 17:35] LABS: Specific Gravity 1.021 (1.005-1.030)
[2024-07-15 17:38] LABS: Specific Gravity 1.021 (1.005-1.030); Urine Bacteria <20 /HPF (<20); Urine Bilirubin NEGATIVE (Negative); Urine Blood 1+ (Negative); Urine Clarity Extremely Turbid (Clear); Urine Color Yellow (Yellow); Urine Culture Reflex Order REFLEXED; Urine Glucose NEGATIVE (Negative); Urine Ketones NEGATIVE (Negative); Urine Microscopic Reflex YN ORDER UMIC; Urine Mucus 2+ /HPF (None Seen); Urine Nitrite NEGATIVE (Negative); Urine Protein 1+ (Negative); Urine Urobilinogen Normal (Normal); Urine WBC >50 /HPF (<5); Urine WBC Clump Occasional /HPF (None Seen); Urine Yeast (Budding) Occasional /HPF (None Seen)
[2024-07-15 17:40] LABS: SARS-CoV-2 Antigen CONTROL BLUE LINE VIS/BG OK; SARS-CoV-2 Antigen Rapid Res Negative (Negative)
--- NOTE | 2024-07-15 18:24 | RAD REPORT ---
Procedure: Chest Single View HISTORY: Cough COMPARISON: 2016 FINDINGS: The lungs appear clear of acute infiltrate. No significant pleural effusion noted. The heart is normal size. IMPRESSION: No acute abnormality is displayed.
[2024-07-15] MEDS ORDERED: CEFTRIAXONE 1000 MG/VIAL ONE (18:38)
[2024-07-15] MEDS ORDERED: NA CHLORIDE 0.9% 100 ML ONE (18:38)
--- NOTE | 2024-07-15 18:50 | EDPHYS ---
Physician Documentation [facility] Name: Gabi Thayer Age: 29 yrs Sex: Female : 1995 Arrival Date: 07/15/2024 Time: 16:25 Bed 10 Private MD: ED Physician Luis Meadows HPI: 07/15 18:33 This 29 yrs old Female presents to ER via Ambulatory with complaints of Flu sb4 Symptoms, Vaginal Pain, Decreased Appetite. 18:33 patient reports cough, nasal congestion, chills, body aches, nausea, vomiting, fever, sb4 and lower abdominal cramping x 3 days. denies any sick contacts. has taken tylenol intermittently with mild relief in symptoms. no chest pain or shortness of breath. Historical: - Allergies: 16:38 Codeine; hb - PMHx: 16:38 Anxiety; HERPES; Rheumatoid Arthritis; hb - Immunization history:: Adult Immunizations up to date. - Infectious Disease History:: Denies. - Social history:: Smoking status: Reported history of juuling and/or vaping. ROS: 18:33 Cardiovascular: Negative for chest pain, palpitations, and edema, sb4 18:33 Constitutional: Positive for chills, fever, 18:33 Respiratory: Positive for cough, 18:33 Abdomen/GI: Positive for nausea and vomiting, 18:33 : Positive for pelvic pain, burning with urination, 18:33 All other systems are negative, Exam: 18:33 Head/Face: Normocephalic, atraumatic. Eyes: Extra-ocular motions intact. Periorbital sb4 areas with no swelling, redness, or edema. ENT: Mucous membranes moist. Cardiovascular: Regular rate and rhythm with a normal S1 and S2. Respiratory: No increased work of breathing, no retractions or nasal flaring. Abdomen/GI: Soft, non-tender, no distension. Skin: Warm, dry with normal turgor. Normal color with no rashes, no lesions, and no evidence of cellulitis. 18:33 Constitutional: The patient appears alert, awake, obviously ill, Vital Signs: 16:37 BP 116 / 72; Pulse 98; Resp 18; Temp 100.9(O); Pulse Ox 100% on R/A; Weight 77.11 kg; hb Height 5 ft. 1 in. ; Pain 10/10; 17:22 BP 115 / 74; Pulse 79; Resp 16; Pulse Ox 98% on R/A; rs5 18:00 BP 122 / 77; Pulse 80; Resp 17; Temp 98(O); Pulse Ox 99% on R/A; rs5 18:45 BP 117 / 77; Pulse 74; Resp 17; Pulse Ox 99% on R/A; rs5 16:37 Body Mass Index 32.12 (77.11 kg, 154.94 cm) hb 16:37 Pain Scale: Adult hb MDM: 16:43 Medical Screening Exam initiated sb4 18:36 Data reviewed: vital signs, nurses notes, lab test result(s), radiologic studies, and sb4 as a result, I will discharge patient. Counseling: I had a detailed discussion with the patient and/or guardian regarding the historical points, exam findings, and any diagnostic results supporting the discharge/admit diagnosis, lab results, radiology results, the need for outpatient follow up, to return to the emergency department if symptoms worsen or persist or if there are any questions or concerns that arise at home. 07/15 16:56 Order name: CBC with Diff; Complete Time: 17:24 sb4 07/15 16:56 Order name: Test, Urine; Complete Time: 17:36 sb4 07/15 16:56 Order name: Urinalysis w/ reflexes; Complete Time: 17:39 sb4 07/15 16:56 Order name: SARS RAPID; Complete Time: 17:41 sb4 07/15 16:56 Order name: Flu; Complete Time: 17:41 sb 07/15 16:56 Order name: Strep [facility] 07/15 17:38 Order name: Throat Culture [facility] 07/15 17:41 Order name: Urine Culture [facility] 07/15 16:56 Order name: Chest Single View XRAY; Complete Time: 18:26 sb4 07/15 16:56 Order name: IV Saline Lock; Complete Time: 17:29 sb4 07/15 16:56 Order name: Labs collected and sent; Complete Time: 17:29 sb4 07/15 18:28 Order name: PO challenge; Complete Time: 18:35 sb4 Administered Medications: 17:20 Drug: NS 0.9% IV 1000 ml IV at 1 bolus Per protocol; to be given as a bolus over 60 rs5 minutes Route: IV; Rate: 1 bolus; Site: right antecubital; 19:33 Follow up: Response: No adverse reaction; IV Status: Completed infusion; IV Intake: rs5 999ml 17:22 Drug: Ondansetron IVP 4 mg IVP once; over 2 minutes Route: IVP; Site: right antecubital;rs5 17:40 Follow up: Response: No adverse reaction rs5 17:22 Drug: Acetaminophen PO 1000 mg PO once Route: PO; rs5 18:10 Follow up: Response: No adverse reaction; Temperature is decreased rs5 18:42 Drug: Rocephin IV 1 grams IV at calculated rate once; Given slow IV push per pharmacy bp instructions Route: IV; Rate: calculated rate; Site: right antecubital; 19:00 Follow up: Response: No adverse reaction rs5 Disposition Summary: 07/15/24 18:49 Discharge Ordered Notes: Location: Home sb4 Problem: new sb4 Symptoms: have improved sb4 Condition: Stable sb4 Diagnosis - UTI/ Urinary tract infection, site not specified sb4 - Acute upper respiratory infection, unspecified sb4 Followup: sb4 - With: Emergency Department - When: As needed - Reason: Trouble breathing, Worsening of condition Discharge Instructions: - Discharge Summary Sheet sb4 - Upper Respiratory Infection, Adult, Subq-yi-[id number] sb4 Forms: - Antibiotic Education sb4 - Patient Portal Instructions sb4 - Leadership Thank You Letter sb4 - Work release form rs5 Prescriptions: - ondansetron 4 mg Oral Tablet,disintegrating - take 1 tablet ORAL route every 6 hours As needed; 10 tablet; Refills: 0, sb4 Product Selection Permitted - Bactrim DS 800-160 mg Oral Tablet - take 1 tablet ORAL route every 12 hours for 10 days; 20 tablet; Refills: 0, sb4 Product Selection Permitted Signatures: Dispatcher [employer] EDMS Andra Daniels RN RN Jason Sands RN RN Patti Maxwell PA-C PA-C sb4 Boris López RN RN rs5 Corrections: (The following items were deleted from the chart) 16:56 16:56 CBC+H.LAB.BRZ ordered. EDMS EDMS 16:56 16:56 Test, Urine+UC.LAB.BRZ ordered. EDMS EDMS 16:56 16:56 Urinalysis+U.LAB.BRZ ordered. EDMS EDMS 16:56 16:56 SARS-COV-2 Antigen Rapid+I.LAB.BRZ ordered. EDMS EDMS 16:56 16:56 Influenza Screen (A \T\ B)+BA.LAB.BRZ ordered. EDMS EDMS 16:56 16:56 Group A Streptococcus Rapid Sc+BA.LAB.BRZ ordered. EDMS EDMS
--- NOTE | 2024-07-15 18:50 | ER ---
Nurse's Notes [facility] Name: Gabi Thayer Age: 29 yrs Sex: Female : 1995 Arrival Date: 07/15/2024 Time: 16:25 Bed 10 Private MD: Diagnosis: UTI/ Urinary tract infection, site not specified;Acute upper respiratory infection, unspecified Presentation: 07/15 16:37 Chief complaint: N/V, chills, headache, and fever x 3 days. Not tolerating fluids. hb Coronavirus screen: Client presents with at least one sign or symptom that may indicate coronavirus-19. Provider contacted for isolation considerations. Ebola Screen: No symptoms or risks identified at this time. Initial Sepsis Screen: Does the patient meet any 2 criteria? No. Patient's initial sepsis screen is negative. Does the patient have a suspected source of infection? No. Patient's initial sepsis screen is negative. Risk Assessment: Do you want to hurt yourself or someone else? Patient reports no desire to harm self or others. Onset of symptoms was July 13, 2024. 16:37 Method Of Arrival: Ambulatory 16:37 Acuity: DOC 3 hb Triage Assessment: 16:40 General: Appears in no apparent distress. uncomfortable, Behavior is calm, cooperative. rs5 Historical: - Allergies: 16:38 Codeine; hb - PMHx: 16:38 Anxiety; HERPES; Rheumatoid Arthritis; hb - Immunization history:: Adult Immunizations up to date. - Infectious Disease History:: Denies. - Social history:: Smoking status: Reported history of juuling and/or vaping. Screenin:40 [facility] ED Fall Risk Assessment (Adult) History of falling in the last 3 months, rs5 including since admission No falls in past 3 months (0 pts) Confusion or Disorientation No (0 pts) Intoxicated or Sedated No (0 pts) Impaired Gait No (0 pts) Mobility Assist Device Used No (0 pt) Altered Elimination No (0 pt) Score/Fall Risk Level 0 - 2 = Low Risk Oriented to surroundings, Maintained a safe environment. Abuse screen: Denies threats or abuse. Nutritional screening: No deficits noted. Tuberculosis screening: No symptoms or risk factors identified. Assessment: 16:40 General: Appears in no apparent distress. uncomfortable, Behavior is calm, cooperative. rs5 Pain: Denies pain. Neuro: Level of Consciousness is awake, alert, obeys commands. Cardiovascular: Patient's skin is warm and dry. Respiratory: Reports cough that is Airway is patent Respiratory effort is even, unlabored, Respiratory pattern is regular, symmetrical. GI: Abdomen is round non-distended, Abd is soft and non tender X 4 quads. : Reports burning with urination. EENT: No signs and/or symptoms were reported regarding the EENT system. Derm: Skin is intact, Skin is pink, warm \T\ dry. Musculoskeletal: Range of motion: intact in all extremities. 18:01 Reassessment: Patient and/or family updated on plan of care and expected duration. Pain rs5 level reassessed. Patient is alert, oriented x 3, equal unlabored respirations, skin warm/dry/pink. 19:00 Reassessment: Patient and/or family updated on plan of care and expected duration. Pain rs5 level reassessed. Patient is alert, oriented x 3, equal unlabored respirations, skin warm/dry/pink. Vital Signs: 16:37 BP 116 / 72; Pulse 98; Resp 18; Temp 100.9(O); Pulse Ox 100% on R/A; Weight 77.11 kg; hb Height 5 ft. 1 in. ; Pain 10/10; 17:22 BP 115 / 74; Pulse 79; Resp 16; Pulse Ox 98% on R/A; rs5 18:00 BP 122 / 77; Pulse 80; Resp 17; Temp 98(O); Pulse Ox 99% on R/A; rs5 18:45 BP 117 / 77; Pulse 74; Resp 17; Pulse Ox 99% on R/A; rs5 16:37 Body Mass Index 32.12 (77.11 kg, 154.94 cm) hb 16:37 Pain Scale: Adult hb ED Course: 16:30 Patient arrived in ED. al6 16:30 Patient has correct armband on for positive identification. Placed in gown. Bed in low rs5 position. Call light in reach. Side rails up X2. 16:30 No provider procedures requiring assistance completed. rs5 16:33 Patti Hidalgo PA-C [facility]. sb4 16:33 Luis Meadows MD is Attending Physician. sb4 16:38 Triage completed. hb 16:38 Arm band placed on. hb 16:50 Inserted saline lock: 20 gauge in right antecubital area, using aseptic technique. rs5 Blood collected. Flushed with 10 mL NS. 17:19 Boris López, RN is Primary Nurse. rs5 18:11 Chest Single View XRAY In Process Unspecified. EDMS 19:05 Provided Education on: discharge instructions . rs5 19:08 IV discontinued, intact, bleeding controlled, No redness/swelling at site. Pressure rs5 dressing applied. Administered Medications: 17:20 Drug: NS 0.9% IV 1000 ml IV at 1 bolus Per protocol; to be given as a bolus over 60 rs5 minutes Route: IV; Rate: 1 bolus; Site: right antecubital; 19:33 Follow up: Response: No adverse reaction; IV Status: Completed infusion; IV Intake: rs5 999ml 17:22 Drug: Ondansetron IVP 4 mg IVP once; over 2 minutes Route: IVP; Site: right antecubital;rs5 17:40 Follow up: Response: No adverse reaction rs5 17:22 Drug: Acetaminophen PO 1000 mg PO once Route: PO; rs5 18:10 Follow up: Response: No adverse reaction; Temperature is decreased rs5 18:42 Drug: Rocephin IV 1 grams IV at calculated rate once; Given slow IV push per pharmacy bp instructions Route: IV; Rate: calculated rate; Site: right antecubital; 19:00 Follow up: Response: No adverse reaction rs5 Medication: 19:00 VIS not applicable for this client. rs5 Intake: 19:33 IV: 999ml; Total: 999ml. rs5 Outcome: 18:49 Discharge ordered by . sb4 19:08 Discharged to home ambulatory, rs5 19:08 Condition: stable 19:08 Discharge instructions given to patient, family, Instructed on discharge instructions, follow up and referral plans. medication usage, Demonstrated understanding of instructions, follow-up care, medications, Prescriptions given X 2, 19:10 Patient left the ED. rs5 Addendum: 07/18/2024 08:53 Addendum: Culture Results: Positive urine culture. Bacteria is resistant to, has i w intermediate sensitivity, or is not tested against prescribed antibiotics. Report given to EVONNE for further evaluation and then to eyewear manufacturing supervisor for follow up with patient. Phone call Prescription called-in to pharmacy of choice. called in Macrobid 100 mg 1 tab PO BID X 7 days, #14, no refills, per Juan F CASTILLO, called in to [facility] Signatures: Dispatcher [employer] Kalpana Lanza, RN RN iw Andra Daniels RN RN Jason Sands RN RN Patti Maxwell, PAIssac PAIssac sb4 Boris López RN RN rs5 Hui Salgado6 Corrections: (The following items were deleted from the chart) 07/15 19:33 18:01 Response: No adverse reaction; IV Status: Completed infusion rs5 rs5
[2024-07-15 19:30] VITALS: BP 116/72; TEMP 100.9; O2SAT 100
== END 2024-07-15 19:10 | disposition home or self-care (01) ==
LOC: ER 16:25
DX: N39.0 Urinary tract infection, site not specified (principal); J06.9 Acute upper respiratory infection, unspecified; Z11.52 Encounter for screening for COVID-19
CPT/HCPCS: 96361; 87070; 87088; 85025; 81001; 87086; 36415; 81025; 87081; 87077; 87186; 87804 ×2; 71045; 96375; 96374; 99284; 87811; J2405; J7030; J0696

== ENCOUNTER 2024-09-21 01:00 | Emergency (ER) | payer OTHER ==
--- OUTSIDE RECORDS SUMMARY | 2024-09-21 01:10 | XMS REPORT | Continuity of Care Document ---
Author Name Unknown Address [address] [facility] [address] [place] [address] [facility] thconnect Address [address] [facility] [place] [address] Care Team Providers Care Product Design Specialist Name Role Phone NO PHYSICIAN, . Primary [...] MONSON KOUTROUVELIS, FREY Attending Clinician Unav ailable JOSE RAFAELDOMINICK Attending Clinician Unavailab DOMINICK Olmedo Attending Clinician Unavailab Nori Rush MD Attending Clinician + BHARGAV VIVAS Attending Clinician Unavailable BHARGAV VIVAS Attending Clinician Unavailable Bhargav Vivas MD Attending Clinician Jennifer Aiken Attending Clinician [phone] JUNIOR MELCHOR Attending Clinician Unavailable Provider, [facility] Attending Clinician Un available Michael Fernandes DO Attending Clinician Meg Gotti Attending Clinician [phone] MEG BYRD Attending Clinician Unavailabl e Doctor Unassigned, [place] Attending Clinician U navailgee DOMINICK MANTILLA Admitting Clinician Unavailab FELIZ Gomez Admitting Clinician Unavailable Payers Payer Name Policy Type Policy Number Effective Date Expirati on Date Source [place] [employer] [id number] 2023 00:00:00 [place]/ PAUL [place] [id number] 2023 00:00:00 Problems Condition Name Condition Details Condition Category Status Onset Date Resolution Date Last Treatment Date Treating Clinician Comments Source Iron deficiency anemia of Iron Deficiency Anemia of Problem Active 9- 00:00: [facility] Rheumatoid arthritis Rheumatoid Arthritis Problem Active 8- 00:00: [facility] Genital herpes simplex Genital Herpes Simplex Problem Active - 00:00: 00 [facility] Mixed anxiety and depressive disorder Mixed Anxiety and Depressive Disorder Problem Active - 00:00: 00 [facility] Arthritis Arthritis Problem Active - 00:00: 00 [facility] High risk due to history of labor High Risk Due to History of Labor Problem Active - 00:00: 00 [facility] Vaginal candidiasi s Vaginal candidiasi s Disease Active 6- 00:00: 00 [facility] Bacterial vaginosis in Bacterial vaginosis in Disease Active 6- 00:00: 00 [facility] Obesity (BMI 30-39.9) Obesity (BMI 30-39.9) Disease Active 6- 00:00: 00 [facility] 22 weeks gestation of 22 weeks gestation of Disease Active 6- 00:00: 00 [facility] Rubella non-immune status, antepartum Rubella non-immune status, antepartum Disease Active 4- 00:00: 00 Overview: Formattin g of this note might be different from the original. Address pp [facility] Chlamydia infection affecting Chlamydia infection affecting Disease Active 4 00:00: 00 Overview: Formattin g of this note might be different from the original. [place] at next visit [facility] Supervisio n of high-risk Supervisio n of high-risk Disease Active 3-29 00:00: 00 [facility] Multiparit y Multiparit y Disease Active 0 3-29 00:00: 00 [facility] Obesity in Obesity in Disease Active 0 3-29 00:00: 00 [facility] History of delivery History of delivery Disease Active 0 3-29 00:00: 00 Overview: Formattin g of this note might be different from the original. 2017 [facility] Trichomona l vulvovagin itis Trichomona l vulvovagin itis Disease Active 0 2-12 00:00: 00 [facility] Herpes, vulvar Herpes, vulvar Disease Active 0 2-04 00:00: 00 [facility] Herpes infection in Herpes infection in Disease Active 0 2-04 00:00: 00 Overview: Formattin g of this note might be different from the original. Start suppressi on at 36 weeks [facility] IUD (intrauter ine device) in place IUD (intrauter ine device) in place Disease Active 0 2-04 00:00: 00 [facility] BMI 26.0-26.9, adult BMI 26.0-26.9, adult Disease Active 03-31 00:00: 00 [facility] Depression Depression Disease Active 03-08 00:00: 00 [facility] History of depression History of depression Disease Active 03-08 00:00: 00 [facility] Vaginal Pap smear with LGSIL Vaginal Pap smear with LGSIL Disease Active 08-24 00:00: 00 Overview: Formattin g of this note might be different from the original. Repeat 1 year [facility] Juvenile arthritis Juvenile arthritis Disease Active 08-16 00:00: 00 [facility] History of anxiety History of anxiety Disease Active 08-16 00:00: 00 [facility] test performed, confirmed test performed, confirmed Diagnosis Active [facility] 38 weeks gestation of Problem [facility] Chronic anemia Problem [facility] Normal delivery at term Problem [facility] Single live Problem [facility] Infection due to severe acute respirator y syndrome coronaviru s 2 (SARS-CoV- 2) Problem [facility] Fever Problem [facility] Tachycardi a Problem [facility] Tachycardi a found on measuremen t of baseline heart rate Problem [facility] Uterine contractio ns during Problem [facility] Herpes simplex vulvovagin itis Herpes simplex vulvovagin itis Problem Active [facility] STI (sexually transmitte d infection) STI (sexually transmitte d infection) Problem Active [facility] IUD (intrauter ine device) in place IUD (intrauter ine device) in place Problem Active [facility] BMI 26.0-26.9, adult BMI 26.0-26.9, adult Disease Resolve d 03-31 00:00: 00 2023-10-20 00:00:00 2023-10-20 08:51:04 [facility] Other general counseling and advice for contracept karli management Other general counseling and advice for contracept karli management Disease Resolve d 2019-0 2-04 00:00: 00 2020-05-13 00:00:00 2020-05-13 15:22:25 [facility] IUD (intrauter ine device) in place IUD (intrauter ine device) in place Disease Resolve d 2019-0 2-04 00:00: 00 2020-05-13 00:00:00 2020-05-13 15:22:28 [facility] 36 weeks gestation of 36 weeks gestation of Disease Resolve d 2016-0 7-19 00:00: 00 2020-05-13 00:00:00 2020-05-13 15:22:32 [facility] Liveborn , of ayoub , born in hospital by vaginal delivery Liveborn , of ayoub , born in hospital by vaginal delivery Disease Resolve d 2016-0 7-19 00:00: 00 2020-05-13 00:00:00 2020-05-13 15:22:27 [facility] labor in third trimester labor in third trimester Disease Resolve d 2016-0 7-18 00:00: 00 2020-05-13 00:00:00 2020-05-13 15:22:22 [facility] care and examinatio n of lactating mother care and examinatio n of lactating mother Disease Resolve d 0 8-16 00:00: 00 2020-05-13 00:00:00 2020-05-13 15:22:23 [facility] Vaginal bleeding before 22 weeks gestation Vaginal bleeding before 22 weeks gestation Disease Resolve d 7-21 00:00: 00 2016-03-08 00:00:00 2016-03-08 13:07:25 [facility] Vaginal yeast infection Vaginal yeast infection Disease Resolve d 0 7-07 00:00: 00 2016-03-08 00:00:00 2016-03-08 13:07:10 [facility] Anemia of mother in , antepartum Anemia of mother in , antepartum Disease Active 0 5-25 00:00: 00 2016-03-08 00:00:00 2016-03-08 13:07:23 [facility] Fall Fall Disease Resolve d 5-17 00:00: 00 2016-03-08 00:00:00 2016-03-08 13:07:20 [facility] Heartburn during Heartburn during Disease Resolve d 4-18 00:00: 00 2016-03-08 00:00:00 2016-03-08 13:07:16 [facility] Frequent headaches Frequent headaches Disease Resolve d 418 00:00: 00 2016-03-08 00:00:00 2016-03-08 13:07:18 [facility] Supervisio n of high-risk with insufficie nt care Supervisio n of high-risk with insufficie nt care Disease Resolve d 24 00:00: 00 2016-03-08 00:00:00 2016-03-08 13:07:12 [facility] Allergies, Adverse Reactions, Alerts Allergy Name Allergy Type Status Severity Reaction(s) Onset Date Inactive Date Treating Clinician Comments Source Codeine ([id number]) Allergy to substanc e Active Severe Chest discomfort 04-01 00:00: 00 [facility] Codeine Propensi ty to adverse reaction s Active Anaphylaxis 2014-07 00:00: 00 [facility] CODEINE DRUG INGREDI Active Anaphylaxis 2014-07 00:00: 00 [facility] Social History Social Habit Start Date Stop Date Quantity Comments Source ASSERTION 2023-08-05 00:00:00 [facility] History of tobacco use [facility] Exposure to SARS-CoV-2 (event) Not sure [facility] Alcoholic beverage intake 2024-02-07 00:00:00 2024-02-07 00:00:00 0 /d [facility] Alcohol intake 2023-11-17 00:00:00 2023-11-17 00:00:00 0 /d [facility] Tobacco use and exposure 2023-10-20 00:00:00 2023-10-20 00:00:00 Smokeless tobacco non-user [facility] History of Social function 2023-10-20 00:00:00 2023-10-20 00:00:00 [facility] Sex assigned at 1995 00:00:00 1995 00:00:00 [facility] Smoking Status Start Date Stop Date Source Never smoked tobacco (finding) [facility] Medications Ordered Medication Name Filled Medication Name Start Date Stop Date Current Medication? Ordering Clinician Indication Dosage Frequency Signature (SIG) Comments Components Source Ferrous Sulfate (Feosol 325 Mg *) [address] Ferrous Sulfate (Feosol 325 Mg *) [address] 04-14 10:37: 00 Yes 1 [facility] Ibuprofen (Motrin) 800 Mg TAB Ibuprofen (Motrin) 800 Mg TAB 04-14 10:37: 00 Yes 800 [facility] Multivit-Mi n W/Fe-Fa * ( *) TAB Multivit-Mi n W/Fe-Fa * ( *) TAB 04-13 09:26: 00 Yes 1 [facility] Iron Fum & P-FA-Vit B & C No.9 (INTEGRA PLUS) 125 mg iron- 1 mg Cap 01-31 00:00: 00 Yes [id number] 1{capsu le} Take 1 capsule by mouth in the morning. [facility] alum-mag hydroxide-s imeth (MAG-AL PLUS) 200-200-20 mg/5 mL suspension 30 mL 12-22 19:52: 54 Yes 30mL [facility] docusate (COLACE) capsule 200 mg 12-22 19:52: 54 Yes 200mg [facility] magnesium hydroxide (MILK OF MAGNESIA) 400 mg/5 mL suspension 30 mL 12-22 19:52: 54 Yes 30mL [facility] metroNIDAZO LE (FLAGYL) tablet 500 mg 12-22 17:15: 00 12-22 17:18 :00 No 500mg 500 mg, Oral, Q12H, 1 dose, First dose on 6/1/24 at 1215, Routine, Reason for Anti-Infec tive: Documented Infection, Documented Infection Site: Pelvic, Duration of Therapy: Once (ED) [facility] fluconazole (DIFLUCAN) tablet 150 mg 12-22 17:15: 00 12-22 17:18 :00 No 150mg 150 mg, Oral, DAILY, 1 dose, First dose on 12/23/23 at 1215, ROBY, Reason for Anti-Infec tive: Documented Infection, Documented Infection Site: Pelvic, Duration of Therapy: Once (ED) [facility] metroNIDAZO LE 500 mg tablet 12-18 00:00: 00 Yes [id number] 500mg Take 1 tablet by mouth in the morning and 1 tablet in the evening. [facility] terconazole 80 mg vaginal suppository 12-18 00:00: 00 12-22 04:59 :00 No [id number] 80mg Insert 1 Suppositor y into vagina at bedtime for 3 days. [facility] PNV 67-iron ps-folate no.1-dha (VITAFOL ULTRA) 29 mg iron- 1 mg-200 mg Cap 11-16 00:00: 00 Yes [id number] 1{each} Take 1 Each by mouth in the morning. [facility] proMETHazin e 25 mg tablet 11-16 00:00: 00 Yes [id number] 25mg Take 1 tablet by mouth every 6 (six) hours as needed for Nausea and Vomiting (N/V). [facility] amoxicillin 500 mg capsule 05 00:00: 00 11-03 04:59 :00 No [id number] 01 500mg Take 1 capsule by mouth in the morning and 1 capsule at noon and 1 capsule in the evening. Do all this for 7 days. [facility] boc13-odfu- folic acid 29 mg iron- 1 mg per tablet 10-19 00:00: 00 Yes [id number] 1{tbl} Take 1 tablet by mouth in the morning. [facility] metroNIDAZO LE 500 mg tablet 09-04 00:00: 00 09-05 05:59 :00 No [id number] 2000mg Take 4 tablets by mouth once now for 1 dose. [facility] fluconazole (DIFLUCAN) 150 mg tablet 09-04 00:00: 00 09-05 05:59 :00 No [id number] 150mg Take 1 tablet by mouth once now for 1 dose. [facility] sulfamethox azole-trime thoprim 800-160 mg per tablet 02-07 00:00: 00 Yes [id number] 1{tbl} Take 1 tablet by mouth every 12 (twelve) hours. [facility] mupirocin 2 % ointment 02-07 00:00: 00 Yes [id number] Apply to area(s) 3 (three) times daily. [facility] ondansetron (ZOFRAN ODT) 4 mg disintegrat ing tablet 12-19 00:00: 00 Yes [id number] 4mg Take 1 tablet by mouth every 8 (eight) hours as needed for Nausea and Vomiting (N/V). [facility] Acyclovir Acyclovir 10-18 00:00: 00 Yes Paul Wilder 1 tablet [facility] doxycycline 100 mg capsule 10-12 00:00: 00 Yes 100mg Take 1 capsule by mouth 2 (two) times daily. [facility] vitamin w/FA tablet 02-09 00:00: 00 Yes 1{tbl} Take 1 tablet by mouth daily. [facility] vitamin w/FA tablet 02-09 00:00: 00 Yes 1{tbl} Take 1 tablet by mouth daily. [facility] docusate calcium 240 mg capsule 02-09 00:00: 00 Yes 240mg Take 1 capsule by mouth once daily as needed for Constipati on. [facility] ibuprofen 600 mg tablet 02-09 00:00: 00 Yes 600mg Take 1 tablet by mouth every 6 (six) hours as needed for Pain (scale 1-3) or Pain (scale 4-6) (Pain). Take with food or milk. [facility] ferrous sulfate 325 mg (65 mg iron) tablet 02-09 00:00: 00 Yes 325mg Take 1 tablet by mouth 2 (two) times daily. [facility] acyclovir 400 mg tablet TAKE 1 TABLET BY MOUTH TWICE A DAY acyclovir 400 mg tablet TAKE 1 TABLET BY MOUTH TWICE A DAY No acyclovir 400 mg tablet TAKE 1 TABLET BY MOUTH TWICE A DAY [facility] Integra Plus 125 mg iron-1 mg capsule Integra Plus 125 mg iron-1 mg capsule No Integra Plus 125 mg iron-1 mg capsule [facility] No [facility] Vitafol Ultra 29 mg iron-1 mg-200 mg capsule TAKE 1 CAPSULE BY MOUTH IN THE MORNING Vitafol Ultra 29 mg iron-1 mg-200 mg capsule TAKE 1 CAPSULE BY MOUTH IN THE MORNING No Vitafol Ultra 29 mg iron-1 mg-200 mg capsule TAKE 1 CAPSULE BY MOUTH IN THE MORNING [facility] valacyclovi r 500 mg tablet TAKE 1 TABLET BY MOUTH EVERY DAY valacyclovi r 500 mg tablet TAKE 1 TABLET BY MOUTH EVERY DAY No 1 Q1D valacyclov ir 500 mg tablet TAKE 1 TABLET BY MOUTH EVERY DAY [facility] metoclopram kathie 10 mg tablet TAKE 1 TABLET BY MOUTH EVERY 6 HOURS NEEDED metoclopram kathie 10 mg tablet TAKE 1 TABLET BY MOUTH EVERY 6 HOURS NEEDED No metoclopra mide 10 mg tablet TAKE 1 TABLET BY MOUTH EVERY 6 HOURS NEEDED [facility] Macrobid 100 mg capsule Take 1 capsule every 12 hours by oral route for 5 days. Macrobid 100 mg capsule Take 1 capsule every 12 hours by oral route for 5 days. No 1capsul e(s) Q12H Macrobid 100 mg capsule Take 1 capsule every 12 hours by oral route for 5 days. [facility] medroxyprog esterone 150 mg/mL intramuscul ar [...] SARS-COV-2 COVID-19 PFIZER VACCINE 2020-11-05 00:00:00 Completed [facility] SARS-COV-2 COVID-19 PFIZER VACCINE 2020-10-15 00:00:00 Completed [facility] HPV9 2019-08-27 00:00:00 Completed [facility] Influenza Virus Vaccine Quad .5 mL IM 6+ MO 2019-08-27 00:00:00 Completed [facility] HPV9 2019-08-27 00:00:00 Completed [facility] Influenza Virus Vaccine Quad .5 mL IM 6+ MO 2019-08-27 00:00:00 Completed [facility] HPV9 2019-08-27 00:00:00 Completed [facility] Influenza Virus Vaccine Quad .5 mL IM 6+ MO 2019-08-27 00:00:00 Completed [facility] HPV9 2019-08-27 00:00:00 Completed [facility] Influenza Virus Vaccine Quad .5 mL IM 6+ MO 2019-08-27 00:00:00 Completed [facility] HPV9 2019-08-27 00:00:00 Completed [facility] Influenza Virus Vaccine Quad .5 mL IM 6+ MO 2019-08-27 00:00:00 Completed [facility] HPV9 2019-08-27 00:00:00 Completed [facility] Influenza Virus Vaccine Quad .5 mL IM 6+ MO 2019-08-27 00:00:00 Completed [facility] HPV9 2019-08-27 00:00:00 Completed [facility] Influenza Virus Vaccine Quad .5 mL IM 6+ MO 2019-08-27 00:00:00 Completed [facility] HPV9 2019-08-27 00:00:00 Completed [facility] Influenza Virus Vaccine Quad .5 mL IM 6+ MO 2019-08-27 00:00:00 Completed [facility] HPV9 2019-08-27 00:00:00 Completed [facility] Influenza Virus Vaccine Quad .5 mL IM 6+ MO 2019-08-27 00:00:00 Completed [facility] HPV9 2019-08-27 00:00:00 Completed [facility] Influenza Virus Vaccine Quad .5 mL IM 6+ MO 2019-08-27 00:00:00 Completed [facility] Tdap 2015-12-15 00:00:00 Completed [facility] Tdap 2015-12-15 00:00:00 Completed [facility] TDAP 2015-12-15 00:00:00 Completed [facility] TDAP 2015-12-15 00:00:00 Completed [facility] TDAP 2015-12-15 00:00:00 Completed [facility] TDAP 2015-12-15 00:00:00 Completed [facility] TDAP 2015-12-15 00:00:00 Completed [facility] TDAP 2015-12-15 00:00:00 Completed [facility] TDAP 2015-12-15 00:00:00 Completed [facility] Tdap 2015-12-15 00:00:00 Completed [facility] Tdap 2015-12-15 00:00:00 Completed [facility] Influenza Virus Vaccine Quad IM 3+ YRS 2015-08-13 00:00:00 Completed [facility] Influenza Virus Vaccine Quad IM 3+ YRS 2015-08-13 00:00:00 Completed [facility] Influenza Virus Vaccine Quad IM 3+ YRS 2015-08-13 00:00:00 Completed [facility] Influenza Virus Vaccine Quad IM 3+ YRS 2015-08-13 00:00:00 Completed [facility] Influenza Virus Vaccine Quad IM 3+ YRS 2015-08-13 00:00:00 Completed [facility] Influenza Virus Vaccine Quad IM 3+ YRS 2015-08-13 00:00:00 Completed [facility] Influenza Virus Vaccine Quad IM 3+ YRS 2015-08-13 00:00:00 Completed [facility] Influenza Virus Vaccine Quad IM 3+ YRS 2015-08-13 00:00:00 Completed [facility] Influenza Virus Vaccine Quad IM 3+ YRS 2015-08-13 00:00:00 Completed [facility] Influenza Virus Vaccine Quad IM 3+ YRS 2015-08-13 00:00:00 Completed [facility] Influenza Virus Vaccine Quad IM 3+ YRS 2015-08-13 00:00:00 Completed [facility] Td 2006-07-24 00:00:00 Completed [facility] Td 2006-07-24 00:00:00 Completed [facility] Td 2006-07-24 00:00:00 Completed [facility] Td 2006-07-24 00:00:00 Completed [facility] Td 2006-07-24 00:00:00 Completed [facility] Td 2006-07-24 00:00:00 Completed [facility] Td 2006-07-24 00:00:00 Completed [facility] Td 2006-07-24 00:00:00 Completed [facility] Td 2006-07-24 00:00:00 Completed [facility] Td 2006-07-24 00:00:00 Completed [facility] Td 2006-07-24 00:00:00 Completed [facility] SARS-COV-2 COVID-19 PFIZER VACCINE Unknown Completed [facility] TD, NOS Unknown Completed [facility] Influenza Virus Vaccine Quad IM 3+ YRS Unknown Completed [facility] TDAP Unknown Completed [facility] HPV9 Unknown Completed [facility] SARS-COV-2 COVID-19 PFIZER VACCINE Unknown Completed [facility] TD, NOS Unknown Completed [facility] Influenza Virus Vaccine Quad IM 3+ YRS Unknown Completed [facility] TDAP Unknown Completed [facility] HPV9 Unknown Completed [facility] SARS-COV-2 COVID-19 PFIZER VACCINE Unknown Completed [facility] TD, NOS Unknown Completed [facility] Influenza Virus Vaccine Quad IM 3+ YRS Unknown Completed [facility] TDAP Unknown Completed [facility] HPV9 Unknown Completed [facility] SARS-COV-2 COVID-19 PFIZER VACCINE Unknown Completed [facility] TD, NOS Unknown Completed [facility] Influenza Virus Vaccine Quad IM 3+ YRS Unknown Completed [facility] TDAP Unknown Completed [facility] HPV9 Unknown Completed [facility] SARS-COV-2 COVID-19 PFIZER VACCINE Unknown Completed [facility] TD, NOS Unknown Completed [facility] TDAP Unknown Completed [facility] HPV9 Unknown Completed [facility] Influenza Virus Vaccine Quad IM 3+ YRS Unknown Completed [facility] SARS-COV-2 COVID-19 PFIZER VACCINE Unknown Completed [facility] TD, NOS Unknown Completed [facility] Influenza Virus Vaccine Quad IM 3+ YRS Unknown Completed [facility] TDAP Unknown Completed [facility] HPV9 Unknown Completed [facility] SARS-COV-2 COVID-19 PFIZER VACCINE Unknown Completed [facility] TD, NOS Unknown Completed [facility] Influenza Virus Vaccine Quad IM 3+ YRS Unknown Completed [facility] TDAP Unknown Completed [facility] HPV9 Unknown Completed [facility] SARS-COV-2 COVID-19 PFIZER VACCINE Unknown Completed [facility] TD, NOS Unknown Completed [facility] Influenza Virus Vaccine Quad IM 3+ YRS Unknown Completed [facility] TDAP Unknown Completed [facility] HPV9 Unknown Completed [facility] SARS-COV-2 COVID-19 PFIZER VACCINE Unknown Completed [facility] TD, NOS Unknown Completed [facility] Influenza Virus Vaccine Quad IM 3+ YRS Unknown Completed [facility] TDAP Unknown Completed [facility] HPV9 Unknown Completed [facility] SARS-COV-2 COVID-19 PFIZER VACCINE Unknown Completed [facility] TD, NOS Unknown Completed [facility] Influenza Virus Vaccine Quad IM 3+ YRS Unknown Completed [facility] TDAP Unknown Completed [facility] HPV9 Unknown Completed [facility] SARS-COV-2 COVID-19 PFIZER VACCINE Unknown [facility] [facility] TD, NOS Unknown Completed [facility] Influenza Virus Vaccine Quad IM 3+ YRS Unknown Completed [facility] TDAP Unknown Completed [facility] HPV9 Unknown Completed [facility] SARS-COV-2 COVID-19 PFIZER VACCINE Unknown Completed [facility] TD, NOS Unknown Completed [facility] Influenza Virus Vaccine Quad IM 3+ YRS Unknown Completed [facility] TDAP Unknown Completed [facility] HPV9 Unknown Completed [facility] SARS-COV-2 COVID-19 PFIZER VACCINE Unknown Completed [facility] TD, NOS Unknown Completed [facility] Influenza Virus Vaccine Quad IM 3+ YRS Unknown Completed [facility] TDAP Unknown Completed [facility] HPV9 Unknown Completed [facility] SARS-COV-2 COVID-19 PFIZER VACCINE Unknown Completed [facility] TD, NOS Unknown Completed [facility] Influenza Virus Vaccine Quad IM 3+ YRS Unknown Completed [facility] TDAP Unknown Completed [facility] HPV9 Unknown Completed [facility] SARS-COV-2 COVID-19 PFIZER VACCINE Unknown Completed [facility] TD, NOS Unknown Completed [facility] Influenza Virus Vaccine Quad IM 3+ YRS Unknown Completed [facility] TDAP Unknown Completed [facility] HPV9 Unknown Completed [facility] SARS-COV-2 COVID-19 PFIZER VACCINE Unknown Completed [facility] TD, NOS Unknown Completed [facility] Influenza Virus Vaccine Quad IM 3+ YRS Unknown Completed [facility] TDAP Unknown Completed [facility] HPV9 Unknown Completed [facility] SARS-COV-2 COVID-19 PFIZER VACCINE Unknown Completed [facility] TD, NOS Unknown Completed [facility] Influenza Virus Vaccine Quad IM 3+ YRS Unknown Completed [facility] TDAP Unknown Completed [facility] HPV9 Unknown Completed [facility] SARS-COV-2 COVID-19 PFIZER VACCINE Unknown Completed [facility] TD, NOS Unknown Completed [facility] Influenza Virus Vaccine Quad IM 3+ YRS Unknown Completed [facility] TDAP Unknown Completed [facility] HPV9 Unknown Completed [facility] SARS-COV-2 COVID-19 PFIZER VACCINE Unknown Completed [facility] TD, NOS Unknown Completed [facility] Influenza Virus Vaccine Quad IM 3+ YRS Unknown Completed [facility] TDAP Unknown Completed [facility] HPV9 Unknown Completed [facility] Vital Signs Vital Name Observation Time Observation Value Comments S ource BP Systolic 2024-05-07 00:00:00 115 mm[Hg] [facility] BMI (Body Mass Index) 2024-05-07 00:00:00 31.6 kg/m2 [facility] BP Diastolic 2024-05-07 00:00:00 78 mm[Hg] [facility] Height 2024-05-07 00:00:00 61 [in_i] [facility] Body Weight 2024-05-07 00:00:00 167 [lb_av] [facility] Height 2024-04-13 09:18:00 154.94 cm [facility] Weight 2024-04-13 09:18:[address] [facility] BMI (Body Mass Index) 2024-04-13 09:18:00 36.5 kg/m2 [facility] BP Diastolic 2024-04-09 00:00:00 89 mm[Hg] [facility] BP Systolic 2024-04-09 00:00:00 133 mm[Hg] [facility] Height 2024-04-09 00:00:00 61 [in_i] [facility] Body Weight 2024-04-09 00:00:00 191 [lb_av] [facility] BMI (Body Mass Index) 2024-04-09 00:00:00 36.1 kg/m2 [facility] BP Systolic 2024-03-26 00:00:00 129 mm[Hg] [facility] BP Diastolic 2024-03-26 00:00:00 91 mm[Hg] [facility] BMI (Body Mass Index) 2024-03-26 00:00:00 36.1 kg/m2 [facility] Height 2024-03-26 00:00:00 61 [in_i] [facility] Body Weight 2024-03-26 00:00:00 190.8 [lb_av] [facility] BMI (Body Mass Index) 2024-03-11 00:00:00 35.7 kg/m2 [facility] BP Systolic 2024-03-11 00:00:00 112 mm[Hg] [facility] Body Weight 2024-03-11 00:00:00 189.1 [lb_av] [facility] Height 2024-03-11 00:00:00 61 [in_i] [facility] BP Diastolic 2024-03-11 00:00:00 69 mm[Hg] [facility] BP Diastolic 2024-02-09 00:00:00 79 mm[Hg] [facility] BP Systolic 2024-02-09 00:00:00 115 mm[Hg] [facility] Body Weight 2024-02-09 00:00:00 183 [lb_av] [facility] BMI (Body Mass Index) 2024-02-09 00:00:00 34.6 kg/m2 [facility] Height 2024-02-09 00:00:00 61 [in_i] [facility] Systolic blood pressure 2024-02-07 17:39:00 135 mm[Hg] [facility] Diastolic blood pressure 2024-02-07 17:39:00 88 mm[Hg] [facility] Heart rate 2024-02-07 17:39:00 91 /min [facility] Body temperature 2024-02-07 17:39:00 36.78 Deborah [facility] Respiratory rate 2024-02-07 17:39:00 18 /min [facility] Body height 2024-02-07 17:39:00 154.9 cm [facility] Body weight 2024-02-07 17:39:00 84.171 kg [facility] BMI 2024-02-07 17:39:00 35.06 kg/m2 [facility] Body weight 2024-01-24 15:33:00 82.736 kg [facility] BMI 2024-01-24 15:33:00 34.46 kg/m2 [facility] Systolic blood pressure 2024-01-24 15:33:00 118 mm[Hg] [facility] Diastolic blood pressure 2024-01-24 15:33:00 72 mm[Hg] [facility] Heart rate 2024-01-24 15:33:00 78 /min [facility] Body temperature 2024-01-24 15:33:00 36.22 Deborah [facility] Respiratory rate 2024-01-24 15:33:00 18 /min [facility] Body height 2024-01-24 15:33:00 154.9 cm [facility] Systolic blood pressure 2024-01-11 15:46:00 124 mm[Hg] [facility] Diastolic blood pressure 2024-01-11 15:46:00 78 mm[Hg] [facility] Heart rate 2024-01-11 15:46:00 69 /min [facility] Body temperature 2024-01-11 15:46:00 36.5 Deborah [facility] Respiratory rate 2024-01-11 15:46:00 18 /min [facility] Body height 2024-01-11 15:46:00 154.9 cm [facility] Body weight 2024-01-11 15:46:00 83.643 kg [facility] BMI 2024-01-11 15:46:00 34.84 kg/m2 [facility] Heart rate 2023-12-23 17:18:00 86 /min [facility] Oxygen saturation in Arterial blood by Pulse oximetry 2023-12-23 17:18:00 99 /min [facility] Respiratory rate 2023-12-23 17:00:00 18 /min [facility] Body weight 2023-12-23 17:00:00 83 kg [facility] BMI 2023-12-23 17:00:00 34.57 kg/m2 [facility] Systolic blood pressure 2023-12-23 16:00:00 107 mm[Hg] [facility] Diastolic blood pressure 2023-12-23 16:00:00 66 mm[Hg] [facility] Body temperature 2023-12-23 16:00:00 37.06 Deborah [facility] Systolic blood pressure 2023-12-14 15:06:00 139 mm[Hg] [facility] Diastolic blood pressure 2023-12-14 15:06:00 77 mm[Hg] [facility] Heart rate 2023-12-14 15:06:00 76 /min [facility] Body temperature 2023-12-14 15:06:00 36.39 Deborah [facility] Respiratory rate 2023-12-14 15:06:00 18 /min [facility] Body height 2023-12-14 15:06:00 154.9 cm [facility] Body weight 2023-12-14 15:06:00 83.416 kg [facility] BMI 2023-12-14 15:06:00 34.75 kg/m2 [facility] Systolic blood pressure 2023-11-17 14:59:00 130 mm[Hg] [facility] Diastolic blood pressure 2023-11-17 14:59:00 72 mm[Hg] [facility] Heart rate 2023-11-17 14:59:00 82 /min [facility] Body temperature 2023-11-17 14:59:00 36.39 Deborah [facility] Respiratory rate 2023-11-17 14:59:00 18 /min [facility] Body height 2023-11-17 14:59:00 154.9 cm [facility] Body weight 2023-11-17 14:59:00 83.326 kg [facility] BMI 2023-11-17 14:59:00 34.71 kg/m2 [facility] Systolic blood pressure 2023-10-20 13:18:00 126 mm[Hg] [facility] Diastolic blood pressure 2023-10-20 13:18:00 69 mm[Hg] [facility] Heart rate 2023-10-20 13:18:00 71 /min [facility] Body temperature 2023-10-20 13:18:00 36.61 Deborah [facility] Respiratory rate 2023-10-20 13:18:00 17 /min [facility] Body height 2023-10-20 13:18:00 154.9 cm [facility] Body weight 2023-10-20 13:18:00 84.823 kg [facility] BMI 2023-10-20 13:18:00 35.33 kg/m2 [facility] Systolic blood pressure 2020-10-15 20:46:00 128 mm[Hg] [facility] Diastolic blood pressure 2020-10-15 20:46:00 85 mm[Hg] [facility] Heart rate 2020-10-15 20:46:00 66 /min [facility] Body temperature 2020-10-15 20:46:00 36.5 Deborah [facility] Respiratory rate 2020-10-15 20:46:00 18 /min [facility] Body height 2020-10-15 20:46:00 154.9 cm [facility] 2020-10-15 20:46:00 73.483 kg [facility] BMI 2020-10-15 20:46:00 30.61 kg/m2 [facility] Oxygen saturation in Arterial blood by Pulse oximetry 2020-10-15 20:46:00 98 /min [facility] Systolic blood pressure 2020-10-15 20:46:00 128 mm[Hg] [facility] Diastolic blood pressure 2020-10-15 20:46:00 85 mm[Hg] [facility] Heart rate 2020-10-15 20:46:00 66 /min [facility] Body temperature 2020-10-15 20:46:00 36.5 Deborah [facility] Respiratory rate 2020-10-15 20:46:00 18 /min [facility] Body height 2020-10-15 20:46:00 154.9 cm [facility] Body weight 2020-10-15 20:46:00 73.483 kg [facility] BMI 2020-10-15 20:46:00 30.61 kg/m2 [facility] Oxygen saturation in Arterial blood by Pulse oximetry 2020-10-15 20:46:00 98 /min [facility] Systolic blood pressure 2020-05-13 19:52:00 132 mm[Hg] [facility] Diastolic blood pressure 2020-05-13 19:52:00 86 mm[Hg] [facility] Heart rate 2020-05-13 19:52:00 76 /min [facility] Body temperature 2020-05-13 19:52:00 36.56 Deborah [facility] Respiratory rate 2020-05-13 19:52:00 16 /min [facility] Body height 2020-05-13 19:52:00 154.9 cm [facility] weight 2020-05-13 19:52:00 76.658 kg [facility] BMI 2020-05-13 19:52:00 31.93 kg/m2 [facility] Systolic blood pressure 2020-05-13 19:52:00 132 mm[Hg] [facility] Diastolic blood pressure 2020-05-13 19:52:00 86 mm[Hg] [facility] Heart rate 2020-05-13 19:52:00 76 /min [facility] Body temperature 2020-05-13 19:52:00 36.56 Deborah [facility] Respiratory rate 2020-05-13 19:52:00 16 /min [facility] Body height 2020-05-13 19:52:00 154.9 cm [facility] Body weight 2020-05-13 19:52:00 76.658 kg [facility] BMI 2020-05-13 19:52:00 31.93 kg/m2 [facility] Systolic blood pressure 2019-08-27 17:04:00 112 mm[Hg] [facility] Diastolic blood pressure 2019-08-27 17:04:00 76 mm[Hg] [facility] Heart rate 2019-08-27 17:04:00 53 /min [facility] temperature 2019-08-27 17:04:00 36.67 Deborah [facility] Respiratory rate 2019-08-27 17:04:00 16 /min [facility] Body height 2019-08-27 17:04:00 154.9 cm [facility] Body weight 2019-08-27 17:04:00 80.4 kg [facility] BMI 2019-08-27 17:04:00 33.49 kg/m2 [facility] Procedures Procedure Date / Time Performed Performing Clinician Source US, obstetric, limited 2024-04-09 00:00:00 [facility] US, obstetric, limited 2024-03-11 00:00:00 [facility] ULTRASOUND REPEAT 2024-02-09 00:00:00 [facility] POCT URINALYSIS 2024-02-07 21:28:00 Oxana Willis [facility] TDAP VACCINE, >11 YRS, IM 2024-02-07 18:12:47 Oxana Willis [facility] POCT URINALYSIS 2024-01-24 15:38:00 Oxana Willis [facility] SECOND AND THIRD TRIMESTER ULTRASOUND 2024-01-23 17:31:00 Oxana Willis [facility] POCT URINALYSIS 2024-01-11 15:52:00 Oxana Willis [facility] POCT URINALYSIS 2023-12-14 15:08:00 Oxana Willis [facility] SECOND AND THIRD TRIMESTER ULTRASOUND 2023-12-12 20:12:00 Oxana Willis [facility] POCT URINALYSIS 2023-11-17 15:01:00 Oxana Willis [facility] SECOND AND THIRD TRIMESTER ULTRASOUND 2023-10-27 19:49:46 Oxana Willis [facility] POCT URINALYSIS W/O SPECIFIC GRAVITY 2023-10-20 13:14:00 Oxana Willis [facility] POCT TEST 2023-10-20 13:13:00 Semaj Willis [facility] DISCLOSURE AND CONSENT, MEDICAL AND SURGICAL PROCEDURES 2020-05-13 05:01:00 Doctor Unassigned, Burden [facility] REFERRAL- REQUEST/RESPONSE 2020-05-05 05:01:00 D octor Unassigned, Burden [facility] GARDASIL 9 (HPV 9V) VACCINE 2019-08-27 17:25:50 Oxana Willis [facility] FLU VACC ([id number]), 6+ MONTHS, IM, QUAD 2019-08-27 17:25:50 Oxana Willis [facility] ASSIGNMENT OF BENEFITS 2019-08-27 16:29:37 Docto r Unassigned, Burden [facility] Cholecystectomy [facility] Encounters Start Date/Time End Date/Time Encounter Type Admission Type Attending Clinicians Care Facility Care Department Encounter ID Source 2023-12-23 14:59:00 Outpatient P [facility] [id number] [facility] 2024-05-08 07:28:00 2024-05-08 07:28:00 Outpatient BENJAMIN KRISHNA [facility] [id number] [facility] 2024-05-07 00:00:00 2024-05-07 00:00:00 Benjamin Sandra MD: [address], [address], [place] [address] , Ph. [phone] [facility] [id number] [facility] 2024-04-13 05:37:00 2024-04-14 10:55:00 Inpatient ER FELIZ GOLDBERG [facility] [id number] [facility] 2024-04-13 05:37:00 2024-04-14 10:55:00 Discharged Inpatient [facility] [id number] [facility] 2024-04-09 11:38:00 2024-04-09 14:05:00 Emergency ER BENJAMIN SANDRA [facility] [id number] [facility] 2024-04-09 11:38:00 2024-04-09 14:05:00 Departed Emergency Room [facility] [id number] [facility] 2024-04-09 00:00:00 2024-04-09 00:00:00 Benjamin Sandra MD: [address], [address], [place] [address] , Ph. [phone] [facility] [id number] [facility] 2024-04-01 13:53:00 2024-04-01 17:40:00 Emergency ER BENJAMIN SANDRA [facility] [id number] [facility] 2024-04-01 13:53:00 2024-04-01 17:40:00 Departed Emergency Room [facility] [id number] [facility] 2024-03-27 13:18:00 2024-03-27 13:18:00 Outpatient BENJAMIN KRISHNA [facility] [id number] [facility] 2024-03-27 13:18:00 2024-03-27 13:18:00 Registered Clinic [facility] [id number] [facility] 2024-03-26 00:00:00 2024-03-26 00:00:00 Benjamin Sandra MD: [address], [address], [place] [address] , Ph. [phone] [facility] [id number] [facility] 2024-03-11 00:00:00 2024-03-11 00:00:00 Benjamin Sandra MD: [address], [address], [place] [address] , Ph. [phone] [facility] [id number] [facility] 2024-03-02 15:06:00 2024-03-02 16:45:00 Emergency ER ASHLEY TORRES [facility] [id number] [facility] 2024-03-02 15:06:00 2024-03-02 16:45:00 Departed Emergency Room [facility] [id number] [facility] 2024-02-13 14:15:00 2024-02-13 14:15:00 Outpatient BATSHEVA ALVAREZ LAURA [facility] [id number] [facility] 2024-02-09 00:00:00 2024-02-09 00:00:00 VALERIE Negron: [address], [address], [place] [address] , Ph. [phone] [facility] [id number] 2024-02-07 12:30:00 2024-02-07 13:17:15 Outpatient R OXANA WILLIS [facility] [id number] [facility] 2024-02-07 12:30:00 2024-02-07 13:17:15 Routine Visit Oxana Willis [facility] TELECOMMUNICATIONS SWITCH TECHNICIAN [facility] & CHILD [facility] [id number] [id number] [facility] 2024-02-01 00:00:00 2024-02-01 11:38:55 Case Management Fiona Barnard [facility] TELECOMM[employer]S SWITCH TECHNICIAN [facility] & CHILD [facility] [id number] [id number] [id number] [facility] 2024-01-24 00:00:00 2024-01-24 16:36:36 Abstract Oxana Willis [facility] TELECOMMUNICATIONS SWITCH TECHNICIAN [facility] & CHILD [facility] [id number] [id number] [id number] [facility] 2024-01-24 10:15:00 2024-01-24 11:05:22 Outpatient R OXANA WILLIS [facility] [id number] [facility] 2024-01-24 10:15:00 2024-01-24 11:05:22 Routine Visit Oxana Willis [facility] TELECOMMUNICATIONS SWITCH TECHNICIAN [facility] & CHILD [facility] [id number] [id number] [id number] [facility] 2024-01-23 11:00:00 2024-01-23 11:31:03 [employer] Visit Ultrasound, Ang-m Shante iGbbs [facility] TELECOMMUNICATIONS SWITCH TECHNICIAN [facility] & CHILD [facility] [id number] [id number] [id number] [facility] 2024-01-23 11:00:00 2024-01-23 11:31:03 Outpatient P SAHNTE GIBBS [facility] [id number] [facility] 2024-01-11 10:45:00 2024-01-11 11:16:49 Outpatient R OXANA WILLIS [facility] [id number] [facility] 2024-01-11 10:45:00 2024-01-11 11:16:49 Routine Visit Oxana Willis [facility] TELECOMMUNICATIONS SWITCH TECHNICIAN [facility] & CHILD [facility] [id number] [id number] [id number] [id number] [facility] 2023-12-23 10:54:00 2023-12-23 14:58:00 [id number] 2023-12-23 10:54:00 2023-12-23 14:58:00 [facility]..114 [id number] [id number] [id number] [facility] 2023-12-19 00:00:00 2023-12-19 08:27:12 Telephone Oxana Willis [facility] TELECOMMUNICATIONS SWITCH TECHNICIAN [facility] & CHILD [facility] [id number] [id number] [id number] [id number] [facility] 2023-12-14 10:15:00 2023-12-14 10:52:46 Outpatient R ALEXANDRAERNESTOANA MARIAABDIRASHIDOXANA [facility] [id number] [facility] 2023-12-14 10:15:00 2023-12-14 10:52:46 Routine Visit AlbaAbdirashidOxana C [facility] TELECOMMUNICATIONS SWITCH TECHNICIAN [facility] & CHILD [facility] [id number] [id number] [id number] [id number] [facility] 2023-12-13 00:00:00 2023-12-13 15:59:04 Abstract AlbaAbdirashidOxana C [facility] TELECOMMUNICATIONS SWITCH TECHNICIAN [facility] & CHILD [facility] 1.840.114 [id number] [id number] [id number] [facility] 2023-12-12 14:00:00 2023-12-12 15:03:15 Outpatient P SHANTE GIBBS [facility] [id number] [facility] 2023-12-12 14:00:00 2023-12-12 15:03:15 [employer] Visit Ultrasound, Shante Sanchez [facility] TELECOMMUNICATIONS [facility] [id number] [id number] [id number] [id number] [facility] 2023-11-17 09:45:00 2023-11-17 10:56:06 Outpatient R ALBA OXANA [facility] [id number] [facility] 2023-11-17 09:45:00 2023-11-17 10:56:06 Routine Visit Oxana Willis [facility] TELECOMMUNICATIONS SWITCH TECHNICIAN [facility] & CHILD [facility] [id number] [id number] [id number] [id number] [facility] 2023-10-27 14:00:00 2023-10-27 14:17:19 Outpatient P BHARGAV VIVAS KARIN [facility] [id number] [facility] 2023-10-27 14:00:00 2023-10-27 14:17:19 [employer] Visit Ultrasound, Bhargav Winters [facility] TELECOMMUNICATIONS SWITCH TECHNICIAN [facility] & CHILD [facility] [id number] [id number] [id number] [id number] [facility] 2023-10-27 00:00:00 2023-10-27 00:00:00 Abstract Oxana Willis [facility] TELECOMMUNICATIONS SWITCH TECHNICIAN [facility] CHILD [facility] [id number] [id number] [id number] [facility] 2023-10-27 00:00:00 2023-10-27 00:00:00 Telephone Oxana Willis [facility] TELECOMMUNICATIONS SWITCH TECHNICIAN [facility] CHILD [facility] 1.2.840.114 350.1.13.10 4.2.7.2.686 [id number] [facility] 2023-10-25 00:00:00 2023-10-25 00:00:00 Telephone Oxana Willis [facility] TELE[employer] SWITCH TECHNICIAN [facility] CHILD [facility] 1.2.840.114 350.1.13.10 4.2.7.2.686 [id number] [facility] 2023-10-24 00:00:00 2023-10-24 00:00:00 Abstract Oxana Willis [facility] TELE[employer] SWITCH TECHNICIAN [facility] CHILD [facility] 1.2.840.114 350.1.13.10 4.2.7.2.686 [id number] [facility] 2023-10-24 00:00:00 2023-10-24 00:00:00 Telephone Tod Willisola C [facility] TELE[employer]S SWITCH TECHNICIAN [facility] MATERNAL & CHILD [facility] 1..114 350.1.13.10 4.2.7.2.686 [id number] [facility] 2023-10-20 07:45:00 2023-10-20 09:39:01 Outpatient R OXANA WILLIS [facility] [id number] [facility] 2023-10-20 07:45:00 2023-10-20 09:39:01 Initial Visit Alba Oxana Walters [facility] TE[employer] SWITCH TECHNICIAN [facility] & CHILD [facility] 1..114 350.1.13.10 4.2.7.2.686 [id number] 107 [id number] [facility] 2020-11-10 00:00:00 2020-11-10 00:00:00 Refill Jennifer Guzman [facility] [address] .114 350.1.13.10 4.2.7.2.686 [id number] [facility] 2020-11-05 16:20:00 2020-11-05 16:20:00 Outpatient R JUNIOR MELCHOR [facility] [id number] [facility] 2020-10-15 15:36:50 2020-10-15 16:19:19 Urgent Care Provider, [facility] Jennifer Guzman [facility] [address] .114 350.1.13.10 4.2.7.2.686 [id number] [facility] 2020-10-15 15:36:50 2020-10-15 16:19:19 Urgent Care Provider, [facility] [address] .114 350.1.13.10 4.2.7.2.686 [id number] 2020-10-15 16:00:00 2020-10-15 16:00:00 Outpatient JUNIOR KRISHNA [facility] [id number] [facility] 2020-10-13 00:00:00 2020-10-13 00:00:00 Patient Outreach Michael Fernandes [facility] 1.2.840.114 350.1.13.10 4.2.7.2.686 [id number] [facility] 2020-10-13 00:00:00 2020-10-13 00:00:00 Patient Outreach Michael Fernandes [facility] 1.2.840.114 350.1.13.10 4.2.7.2.686 [id number] 2020-09-23 00:00:00 2020-09-23 00:00:00 Refill Oxana Willis [facility] TELE[employer]S SWITCH TECHNICIAN [facility] & CHILD [facility] 1.2.840.114 350.1.13.10 4.2.7.2.686 [id number] 107 [id number] [facility] 2020-09-23 00:00:00 2020-09-23 00:00:00 Oxana Espinosa [facility] TELE[employer] SWITCH TECHNICIAN [facility]ILD [facility] 1.2.840.114 350.1.13.10 4.2.7.2.686 [id number] 2020-05-13 14:43:30 2020-05-13 15:17:12 Office Visit Meg Byrd [facility] TELE[employer] SWITCH TECHNICIAN [facility]ILD [facility] 1.2.840.114 350.1.13.10 4.2.7.2.686 [id number] 2020-05-13 14:43:30 2020-05-13 15:17:12 Office Visit Meg Byrd [facility] TELE[employer]S SWITCH TECHNICIAN [facility]NAL & CHILD [facility] 1.2.840.114 350.1.13.10 4.2.7.2.686 [id number] [facility] 2020-05-13 15:00:00 2020-05-13 15:00:00 Outpatient R ROCHELLEMEG [facility] [id number] [facility] 2020-05-13 00:00:00 2020-05-13 00:00:00 Orders Only Doctor Unassigned, Burden [facility] 1.2.840.114 350.1.13.10 4.2.7.2.686 [id number] 2020-05-13 00:00:00 2020-05-13 00:00:00 Orders Only Doctor Unassigned, Burden [facility] 1.2.840.114 350.1.13.10 4.2.7.2.686 [id number] [facility] 2020-05-05 00:00:00 2020-05-05 00:00:00 Orders Only Doctor Unassigned, Burden [facility] 1.2.840.114 350.1.13.10 4.2.7.2.686 [id number] 2020-05-05 00:00:00 2020-05-05 00:00:00 Orders Only Doctor Unassigned, Burden [facility] 1.2.840.114 350.1.13.10 4.2.7.2.686 [id number] [facility] 2019-10-29 10:30:00 2019-10-29 10:30:00 Outpatient R OXANA WILLIS [facility] [id number] [facility] 2019-09-06 00:00:00 2019-09-06 00:00:00 Telephone Oxana Willis [facility] TELE[employer]S SWITCH TECHNICIAN [facility] MATERNAL & CHILD [facility] 1.2.840.114 350.1.13.10 4.2.7.2.686 [id number] [facility] 2019-09-04 00:00:00 2019-09-04 00:00:00 Telephone Oxana Willis [facility] TELECOMM[employer]S SWITCH TECHNICIAN [facility] & CHILD [facility] 1.2.840.114 350.1.13.10 4.2.7.2.686 [id number] [facility] 2019-08-27 10:35:57 2019-08-27 12:04:56 Office Visit Oxana Willis [facility] TELECOMMUNICATIONS SWITCH TECHNICIAN [facility] & CHILD [facility] 1.2.840.114 350.1.13.10 4.2.7.2.686 [id number] [facility] 2019-08-27 00:00:00 2019-08-27 00:00:00 Orders Only Doctor Unassigned, Burden [facility] 1.840.114 350.1.13.10 4.2.7.2.686 [id number] [facility] 2017-12-08 11:00:00 2017-12-08 11:00:00 Outpatient [facility] [id number] [facility] 2017-10-18 11:15:00 2017-10-18 11:15:00 Outpatient [facility] [id number] [facility] Results Test Description Test Time Test Comments Results Result Co mments Source [facility] kwrcf9607-25-35 07:01:00* Test Item Value Reference Range Interpretation Comme [facility] Eosinophils # (Auto) (test c ode = WFW1534) 0.06 [facility] CtrRBC vcyfy2302-68-14 07:01:00* Test Item Value Reference Range Interpretation Comme [facility] Red Blood Count (test code = 41132321) 2.97 [facility] WlePnzvwtkbnb2348-23-86 07:01:00* Test Item Value Reference Range Interpretation Comme [facility] Hematocrit (test code = 24894903) 24.9 [facility] CtrMCV (mean corpuscular volume) determination 2024-04-14 07:01:00* Test Item Value Reference Range Interpretation Comme nts Mean Corpuscular Volume (vanna t code = 76730-4) 83.8 [facility] CtrMean corpuscular hemoglobin (MCH) determination 2024-04-14 07:01:00* Test Item Value Reference Range Interpretation Comme [facility] Mean Corpuscular Hemoglobin (test code = 34763952) 25.9 [facility] CtrMean corpuscular hemoglobin concentration (MCHC) raqxlhajkzvos1891-94-08 07:01:00* Test Item Value Reference Range Interpretation Comme [facility] Mean Corpuscular Hemoglobin Concent (test code = 88128601) 30.9 [facility] CtrRBC distribution width coefficient of variation 2024-04-14 07:01:00* Test Item Value Reference Range Interpretation Comme [facility] Red Cell Distribution Width (test code = 35199249) 13.7 [facility] CtrPlatelet jtego7664-81-60 07:01:00* Test Item Value Reference Range Interpretation Comme [facility] Platelet Count (test code = 51903948) 332 [facility] CtrMean platelet srbdyv5643-90-99 07:01:00* Test Item Value Reference Range Interpretation Comme [facility] Mean Platelet Volume (test c ode = 64141847) 9.5 [facility] CtrNeutrophils seg % pnr2610-32-49 07:01:00* Test Item Value Reference Range Interpretation Comme [facility] Neutrophils (%) (Auto) (test code = 60201-9) 64.8 [facility] CtrAbsolute immature granulocyte vqous3015-90-86 07:01:00* Test Item Value Reference Range Interpretation Comme [facility] Absolute Immature Granulocyt e (auto (test code = 25271-5) 0.04 [facility] CtrBlood band neutrophils count (number/volume) 2024-04-14 07:01:00* Test Item Value Reference Range Interpretation Comme [facility] Neutrophils # (Auto) (test c ode = 62991-6) 5.67 [facility] CtrAbsolute lymphocyte kmzyh9637-47-51 07:01:00* Test Item Value Reference Range Interpretation Comme [facility] Lymphocytes # (Auto) (test c ode = 01987-4) 2.14 [facility] CtrAbsolute basophil ebuke3357-84-78 07:01:00* Test Item Value Reference Range Interpretation Comme nts Basophils # (Auto) (test cod e = 87488489) 0.03 [facility] CtrAbsolute NRBC flirm2469-98-66 07:01:00* Test Item Value Reference Range Interpretation Comme nts Nucleated Red Blood Cells # (test code = 130551836) 0 [facility] CtrSerum RPR jggf2281-00-36 14:47:00* Test Item Value Reference Range Interpretation Comme nts Rapid Plasma Reagin (test co de = 06346-7) NONREACTIVE [facility] CtrRBC count ur ubfw1856-45-04 05:45:00* Test Item Value Reference Range Interpretation Comme nts Urine RBC (test code = 798-9) 11-20 [facility] white blood cells (WBC) 2024-04-13 05:45:00* Test Item Value Reference Range Interpretation Comme nts Urine WBC (test code = 551391920) 0-2 [facility] CtrAutomated epithelial cells count in urine sediment (number/area)2024-04-13 05:45:00* Test Item Value Reference Range Interpretation Comme nts Urine Epithelial Cells (test code = 41242-0) 6-10 [facility] CtrBacteria detection in urine sediment by light jksmboorwi6191-76-25 05:45:00* Test Item Value Reference Range Interpretation Comme nts Urine Bacteria (test code = 23556-7) None Seen [facility] CtrUrine casts detection by automated method 2024-04-13 05:45:00* Test Item Value Reference Range Interpretation Comme nts Urine Casts (test code = 93063-6) 0-2 [facility] CtrColor of Urine by Jnrh8483-83-59 05:40:00* Test Item Value Reference Range Interpretation Comme nts Urine Color (test code = 46878-5) Yellow [facility] CtrAppearance of Viial7262-25-29 05:40:00* Test Item Value Reference Range Interpretation Comme nts Urine Appearance (test code = 5767-9) Clear [facility] glucose irumiimxk7414-24-36 05:40:00* Test Item Value Reference Range Interpretation Comme nts Urine Glucose (UA) (test cod e = 2349-9) Negative [facility] CtrBilirubin fp6725-31-76 05:40:00* Test Item Value Reference Range Interpretation Comme nts Urine Bilirubin (test code = 835278832) Negative [facility] CtrKetones th6372-29-04 05:40:00* Test Item Value Reference Range Interpretation Comme nts Urine Ketones (test code = 78765809) Negative [facility] CtrSpecific gravity of Urine by Automated test strip 2024-04-13 05:40:00* Test Item Value Reference Range Interpretation Comme nts Urine Specific [place] (test code = 87166-4) 1.009 [facility] CtrUrine blood effqfthrm4910-92-44 05:40:00* Test Item Value Reference Range Interpretation Comme nts Urine Blood (test code = 46724-6) 2+ (MODERATE) [facility] CtrpH zh2820-81-34 05:40:00* Test Item Value Reference Range Interpretation Comme nts Urine pH (test code = 2756-5) 7.000 [facility] CtrProtein dw5491-92-77 05:40:00* Test Item Value Reference Range Interpretation Comme nts Urine Protein (test code = 14740861) Negative [facility] CtrUrobilinogen, urine, pe3141-92-54 05:40:00* Test Item Value Reference Range Interpretation Comme nts Urine Urobilinogen (test cod e = 253075461) 0.2 [facility] CtrUrine nitrate ggvqblequ2026-73-67 05:40:00* Test Item Value Reference Range Interpretation Comme nts Urine Nitrate (test code = 63327-5) Negative [facility] leukocyte esterase pciljffnc6690-43-81 05:40:00* Test Item Value Reference Range Interpretation Comme nts Urine Leukocyte Esterase (te st code = 639510161) Negative [facility] Ctrurinalysis, ricwdbgc2404-47-77 11:06:12* Test Item Value Reference Range Interpretation Comme nts Leukocytes (test code = Leukocytes) Negative Nitrite (test code = Nitrite) negative Urobilinogen (test code = Urobilinogen) .2 Protein (test code = Protein) Negative pH (test code = pH) 6.5 Blood (test code = Blood) Non-Hemolyzed: Trace Specific [place] (test code = Specific [place]) 1.010 Ketone (test code = Ketone) Negative Bilirubin (test code = Bilirubin) Negative Glucose (test code = Glucose) Negative Appearance (test code = Appearance) Clear Color (test code = Color) Yellow [facility] GroupBilirubin dijwo8417-10-69 15:16:00* Test Item Value Reference Range Interpretation Comme [facility] Total Bilirubin (test code = VVJ5957) 0.3 [facility] CtrSerum or plasma urea nitrogen measurement (mass/volume)2024-04-01 15:16:00* Test Item Value Reference Range Interpretation Comme [facility] Blood Urea Nitrogen (test co de = 3094-0) < 4 [facility] VcgFIW0284-78-78 15:16:00* Test Item Value Reference Range Interpretation Comme nts Aspartate Amino Transf (AST/ SGOT) (test code = ESC4198) 8 [facility] CtrCreatinine jxgjn0424-23-66 15:16:00* Test Item Value Reference Range Interpretation Comme nts Creatinine (test code = 204342235) 0.61 [facility] CtrEstimated glomerular filtration rate (GFR) mcnbwtqhtsgiy3536-89-92 15:16:00* Test Item Value Reference Range Interpretation Comme [facility] Glomerular Filtration Rate C alc (test code = 084512123) > 60.00 [facility] CtrBUN/creatinine rxmus2306-18-38 15:16:00* Test Item Value Reference Range Interpretation Comme [facility] BUN/Creatinine Ratio (test c ode = 63500025) 6.6 [facility] CtrBody fluid potassium odzlflamhax9198-73-47 15:16:00* Test Item Value Reference Range Interpretation Comme nts Potassium Level (test code = 2821-7) 4.0 [facility] KzyAE17445-21-35 15:16:00* Test Item Value Reference Range Interpretation Comme nts Carbon Dioxide Level (test c ode = 11479320) 19 [facility] CtrAnion gap oobjjpxnsdd4233-48-15 15:16:00* Test Item Value Reference Range Interpretation Comme nts Anion Gap (test code = 73117072) 18.0 [facility] CtrCalcium pkcxr8097-14-66 15:16:00* Test Item Value Reference Range Interpretation Comme nts Calcium Level (test code = 61703309) 9.5 [facility] CtrGlobulin dfy5150-56-51 15:16:00* Test Item Value Reference Range Interpretation Comme nts Globulin (test code = 399007143) 3.5 [facility] CtrALT (SGPT) ser/tqyf1354-02-91 15:16:00* Test Item Value Reference Range Interpretation Comme nts Alanine Aminotransferase (AL T/SGPT) (test code = 1742-6) < 5 [facility] CtrALP ser/nmbl0606-74-62 15:16:00* Test Item Value Reference Range Interpretation Comme nts Total Alkaline Phosphatase ( test code = 6768-6) 173 [facility] CtrBilirubin rkoll0994-98-96 15:16:00* Test Item Value Reference Range Interpretation Comme nts Total Bilirubin (test code = MGA0297) 0.3 [facility] CtrSerum or plasma urea nitrogen measurement (mass/volume)2024-04-01 15:16:00* Test Item Value Reference Range Interpretation Comme nts Blood Urea Nitrogen (test co de = 3094-0) < 4 [facility] ErdUPC8204-36-45 15:16:00* Test Item Value Reference Range Interpretation Comme nts Aspartate Amino Transf (AST/ SGOT) (test code = AAH8511) 8 [facility] CtrCreatinine fcgtw8522-83-06 15:16:00* Test Item Value Reference Range Interpretation Comme nts Creatinine (test code = 904639438) 0.61 [facility] CtrEstimated glomerular filtration rate (GFR) rlfmwekllcycp6146-87-59 15:16:00* Test Item Value Reference Range Interpretation Comme nts Glomerular Filtration Rate C alc (test code = 706953877) > 60.00 [facility] CtrBUN/creatinine lnidl9878-88-55 15:16:00* Test Item Value Reference Range Interpretation Comme nts BUN/Creatinine Ratio (test c ode = 90966524) 6.6 [facility] CtrBody fluid potassium xurdzsgplyz2749-82-52 15:16:00* Test Item Value Reference Range Interpretation Comme nts Potassium Level (test code = 2821-7) 4.0 [facility] VhkCN75696-89-35 15:16:00* Test Item Value Reference Range Interpretation Comme nts Carbon Dioxide Level (test c ode = 79044954) 19 [facility] CtrAnion gap xbtayyahhvu5299-61-91 15:16:00* Test Item Value Reference Range Interpretation Comme nts Anion Gap (test code = 14962759) 18.0 [facility] CtrCalcium wcrtd0675-26-91 15:16:00* Test Item Value Reference Range Interpretation Comme nts Calcium Level (test code = 12517180) 9.5 [facility] CtrGlobulin npl8811-55-18 15:16:00* Test Item Value Reference Range Interpretation Comme nts Globulin (test code = 359276764) 3.5 [facility] CtrALT (SGPT) ser/sikx4318-58-26 15:16:00* Test Item Value Reference Range Interpretation Comme nts Alanine Aminotransferase (AL T/SGPT) (test code = 1742-6) < 5 [facility] CtrALP ser/dcnv1851-63-50 15:16:00* Test Item Value Reference Range Interpretation Comme nts Total Alkaline Phosphatase ( test code = 6768-6) 173 [facility] CtrBilirubin mqhtr7010-79-79 15:16:00* Test Item Value Reference Range Interpretation Comme nts Total Bilirubin (test code = URQ0672) 0.3 [facility] CtrSerum or plasma urea nitrogen measurement (mass/volume)2024-04-01 15:16:00* Test Item Value Reference Range Interpretation Comme nts Blood Urea Nitrogen (test co de = 3094-0) < 4 [facility] RtmDHJ4999-23-39 15:16:00* Test Item Value Reference Range Interpretation Comme nts Aspartate Amino Transf (AST/ SGOT) (test code = OAT5755) 8 [facility] CtrCreatinine vteua3035-85-96 15:16:00* Test Item Value Reference Range Interpretation Comme nts Creatinine (test code = 443755192) 0.61 [facility] CtrEstimated glomerular filtration rate (GFR) rcakgddrruetb1833-40-84 15:16:00* Test Item Value Reference Range Interpretation Comme nts Glomerular Filtration Rate C alc (test code = 754349939) > 60.00 [facility] CtrBUN/creatinine kmdmb9217-88-00 15:16:00* Test Item Value Reference Range Interpretation Comme nts BUN/Creatinine Ratio (test c ode = 56967877) 6.6 [facility] CtrBody fluid potassium xdjralslfoc2773-92-72 15:16:00* Test Item Value Reference Range Interpretation Comme nts Potassium Level (test code = 2821-7) 4.0 [facility] KxrGR39460-07-83 15:16:00* Test Item Value Reference Range Interpretation Comme nts Carbon Dioxide Level (test c ode = 14242379) 19 [facility] CtrAnion gap wngwnwripzu5292-90-64 15:16:00* Test Item Value Reference Range Interpretation Comme nts Anion Gap (test code = 66511544) 18.0 [facility] CtrCalcium vyhhz8400-29-86 15:16:00* Test Item Value Reference Range Interpretation Comme nts Calcium Level (test code = 38057275) 9.5 [facility] CtrGlobulin ioi6073-25-37 15:16:00* Test Item Value Reference Range Interpretation Comme nts Globulin (test code = 435435984) 3.5 [facility] CtrALT (SGPT) ser/ntbs4070-04-71 15:16:00* Test Item Value Reference Range Interpretation Comme nts Alanine Aminotransferase (AL T/SGPT) (test code = 1742-6) < 5 [facility] CtrALP ser/klfa5911-41-62 15:16:00* Test Item Value Reference Range Interpretation Comme nts Total Alkaline Phosphatase ( test code = 6768-6) 173 [facility] CtrBlood band neutrophils count (number/volume) 2024-04-01 14:56:00* Test Item Value Reference Range Interpretation Comme nts Neutrophils # (Auto) (test c ode = 85712-3) 7.15 [facility] CtrAbsolute lymphocyte itrqq2745-88-24 14:56:00* Test Item Value Reference Range Interpretation Comme nts Lymphocytes # (Auto) (test c ode = 19637-4) 0.50 [facility] CtrAbsolute basophil lmwbv0333-96-77 14:56:00* Test Item Value Reference Range Interpretation Comme nts Basophils # (Auto) (test cod e = 63286548) 0.04 [facility] CtrAbsolute NRBC oepfq2067-77-01 14:56:00* Test Item Value Reference Range Interpretation Comme nts Nucleated Red Blood Cells # (test code = 079546542) 0 [facility] CtrAbsolute eosinophil sywyb2587-69-04 14:56:00* Test Item Value Reference Range Interpretation Comme nts Eosinophils # (Auto) (test c ode = CDN7919) 0.01 [facility] CtrRBC idigk5331-21-97 14:56:00* Test Item Value Reference Range Interpretation Comme nts Red Blood Count (test code = 39244173) 3.67 [facility] JfeRurxgfkczy6557-62-38 14:56:00* Test Item Value Reference Range Interpretation Comme nts Hematocrit (test code = 48826159) 31.4 [facility] CtrMCV (mean corpuscular volume) determination 2024-04-01 14:56:00* Test Item Value Reference Range Interpretation Comme [facility] Mean Corpuscular Volume (vanna t code = 76721-3) 85.6 [facility] CtrMean corpuscular hemoglobin (MCH) determination 2024-04-01 14:56:00* Test Item Value Reference Range Interpretation Comme [facility] Mean Corpuscular Hemoglobin (test code = 15787676) 26.4 [facility] CtrMean corpuscular hemoglobin concentration (MCHC) czmapotegzokd4321-43-76 14:56:00* Test Item Value Reference Range Interpretation Comme [facility] Mean Corpuscular Hemoglobin Concent (test code = 10440827) 30.9 [facility] CtrRBC distribution width coefficient of variation 2024-04-01 14:56:00* Test Item Value Reference Range Interpretation Comme [facility] Red Cell Distribution Width (test code = 74554658) 13.0 [facility] CtrPlatelet iuasa9852-49-12 14:56:00* Test Item Value Reference Range Interpretation Comme [facility] Platelet Count (test code = 98118250) 351 [facility] CtrMean platelet yfmdya6839-33-65 14:56:00* Test Item Value Reference Range Interpretation Comme nts Mean Platelet Volume (test c ode = 27911065) 9.3 [facility] CtrNeutrophils seg % pqn8525-94-59 14:56:00* Test Item Value Reference Range Interpretation Comme [facility] Neutrophils (%) (Auto) (test code = 80680-5) 86.8 [facility] CtrAbsolute immature granulocyte jmaqr2528-12-89 14:56:00* Test Item Value Reference Range Interpretation Comme [facility] Absolute Immature Granulocyt e (auto (test code = 45044-1) 0.03 [facility] CtrBlood band neutrophils count (number/volume) 2024-04-01 14:56:00* Test Item Value Reference Range Interpretation Comme [facility] Neutrophils # (Auto) (test c ode = 36145-4) 7.15 [facility] [id number] 14:56:00* Test Item Value Reference Range Interpretation Comme [facility] Lymphocytes # (Auto) (test c ode = 17311-8) 0.50 [facility] CtrAbsolute basophil ywsij8908-96-25 14:56:00* Test Item Value Reference Range Interpretation Comme [facility] Basophils # (Auto) (test cod e = 96156113) 0.04 [facility] NRBC wyemu3875-94-04 14:56:00* Test Item Value Reference Range Interpretation Comme [facility] Nucleated Red Blood Cells # (test code = 765072668) 0 [facility] CtrAbsolute eosinophil srfxu9696-51-46 14:56:00* Test Item Value Reference Range Interpretation Comme nts Eosinophils # (Auto) (test c ode = EUB4635) 0.01 [facility] CtrRBC kgfsy8416-94-43 14:56:00* Test Item Value Reference Range Interpretation Comme [facility] Red Blood Count (test code = 32074348) 3.67 [facility] NmzCrqmhzgwul3177-17-86 14:56:00* Test Item Value Reference Range Interpretation Comme [facility] Hematocrit (test code = 88883065) 31.4 [facility] CtrMCV (mean corpuscular volume) determination 2024-04-01 14:56:00* Test Item Value Reference Range Interpretation Comme [facility] Mean Corpuscular Volume (vanna t code = 08934-9) 85.6 [facility] CtrMean corpuscular hemoglobin (MCH) determination 2024-04-01 14:56:00* Test Item Value Reference Range Interpretation Comme [facility] Mean Corpuscular Hemoglobin (test code = 61842130) 26.4 [facility] CtrMean corpuscular hemoglobin concentration (MCHC) dhbdirlqtwenm2055-55-42 14:56:00* Test Item Value Reference Range Interpretation Comme [facility] Mean Corpuscular Hemoglobin Concent (test code = 27794263) 30.9 [facility] CtrRBC distribution width coefficient of variation 2024-04-01 14:56:00* Test Item Value Reference Range Interpretation Comme [facility] Red Cell Distribution Width (test code = 33977420) 13.0 [facility] CtrPlatelet gintb5847-45-54 14:56:00* Test Item Value Reference Range Interpretation Comme [facility] Platelet Count (test code = 55165990) 351 [facility] CtrMean platelet dmowdd0253-28-10 14:56:00* Test Item Value Reference Range Interpretation Comme [facility] Mean Platelet Volume (test c ode = 73138634) 9.3 [facility] CtrNeutrophils seg % huk3401-66-25 14:56:00* Test Item Value Reference Range Interpretation Comme [facility] Neutrophils (%) (Auto) (test code = 40769-2) 86.8 [facility] CtrAbsolute immature granulocyte ldipz5272-10-32 14:56:00* Test Item Value Reference Range Interpretation Comme nts Absolute Immature Granulocyt e (auto (test code = 61801-1) 0.03 [facility] CtrBlood band neutrophils count (number/volume) 2024-04-01 14:56:00* Test Item Value Reference Range Interpretation Comme nts Neutrophils # (Auto) (test c ode = 08221-3) 7.15 [facility] CtrAbsolute lymphocyte abrzp3754-15-65 14:56:00* Test Item Value Reference Range Interpretation Comme nts Lymphocytes # (Auto) (test c ode = 13039-3) 0.50 [facility] CtrAbsolute basophil vkxdg6142-55-19 14:56:00* Test Item Value Reference Range Interpretation Comme nts Basophils # (Auto) (test cod e = 19816907) 0.04 [facility] NRBC fytbv4197-66-59 14:56:00* Test Item Value Reference Range Interpretation Comme nts Nucleated Red Blood Cells # (test code = 985729507) 0 [facility] CtrAbsolute eosinophil ceqmv3111-62-68 14:56:00* Test Item Value Reference Range Interpretation Comme nts Eosinophils # (Auto) (test c ode = KDZ4159) 0.01 [facility] CtrRBC vmkuu4765-34-68 14:56:00* Test Item Value Reference Range Interpretation Comme [facility] Red Blood Count (test code = 92460009) 3.67 [facility] BvrCekziwnopz8446-98-65 14:56:00* Test Item Value Reference Range Interpretation Comme [facility] Hematocrit (test code = 76970120) 31.4 [facility] CtrMCV (mean corpuscular volume) determination 2024-04-01 14:56:00* Test Item Value Reference Range Interpretation Comme [facility] Mean Corpuscular Volume (vanna t code = 46490-6) 85.6 [facility] CtrMean corpuscular hemoglobin (MCH) determination 2024-04-01 14:56:00* Test Item Value Reference Range Interpretation Comme [facility] Mean Corpuscular Hemoglobin (test code = 09230847) 26.4 [facility] CtrMean corpuscular hemoglobin concentration (MCHC) igivryfvtghel3851-63-04 14:56:00* Test Item Value Reference Range Interpretation Comme [facility] Mean Corpuscular Hemoglobin Concent (test code = 01806196) 30.9 [facility] CtrRBC distribution width coefficient of variation 2024-04-01 14:56:00* Test Item Value Reference Range Interpretation Comme [facility] Red Cell Distribution Width (test code = 02472340) 13.0 [facility] CtrPlatelet atggw5985-47-50 14:56:00* Test Item Value Reference Range Interpretation Comme [facility] Platelet Count (test code = 53906577) 351 [facility] CtrMean platelet zkgyna9221-40-28 14:56:00* Test Item Value Reference Range Interpretation Comme [facility] Mean Platelet Volume (test c ode = 45735271) 9.3 [facility] CtrNeutrophils seg % ili9023-80-11 14:56:00* Test Item Value Reference Range Interpretation Comme [facility] Neutrophils (%) (Auto) (test code = 20807-2) 86.8 [facility] CtrAbsolute immature granulocyte hptuf1387-10-92 14:56:00* Test Item Value Reference Range Interpretation Comme [facility] Absolute Immature Granulocyt e (auto (test code = 82317-8) 0.03 [facility] CtrReagin Ab [Presence] in Serum by [id number] 15:10:00* Test Item Value Reference Range Interpretation Comme [facility] RPR (test code = RPR) NONREACTIVE nonreactive [facility] GroupSerum RPR ihbw7175-38-64 15:10:00* Test Item Value Reference Range Interpretation Comme [facility] Rapid Plasma Reagin (test co de = 53729-5) NONREACTIVE [facility] CtrSerum RPR bjfz2270-02-16 15:10:00* Test Item Value Reference Range Interpretation Comme nts Rapid Plasma Reagin (test co de = 41649-8) NONREACTIVE [facility] CtrSerum RPR zokc5128-61-21 15:10:00* Test Item Value Reference Range Interpretation Comme [facility] Rapid Plasma Reagin (test co de = 66848-1) NONREACTIVE [facility] CtrHIV 1+2 Ab [Presence] in Scuxk8184-79-55 15:34:00 * Test Item Value Reference Range Interpretation Comme nts HIV P24 Ag (test code = HIV P24 Ag) NON-REACTIVE nonreactive HIV-1/2 Ab (test code = HIV- 1/2 Ab) NON-REACTIVE nonreactive [facility] W Auto Differential panel - Ocvbd7913-91-43 14:37:00 * Test Item Value Reference Range [...] NRBC# (test code = NRBC#) 0 K/uL [facility] GroupBlood group antibody screen [Presence] in Serum or Plasma 2024-03-27 13:52:00* Test Item Value Reference Range Interpretation Comme nts ind jerry (test code = ind jerry) NEGATIVE [facility] GroupSTI xkgia7902-85-13 00:00:00* Test Item Value Reference Range Interpretation Comme nts CT/NG (test code = CT/NG) NORMAL trichomonas vaginalis addon - swab (test code = trichomonas vaginalis addon - swab) NORMAL [facility] GroupStreptococcus agalactiae [Presence] in Vag+Rectum by Organism specific ndfqhox7627-08-29 00:00:00* Test Item Value Reference Range Interpretation Comme nts group B strep (test code = g roup B strep) NEGATIVE [facility], kskcytqj8409-80-14 09:21:38* Test Item Value Reference Range Interpretation Comme nts Leukocytes (test code = Leukocytes) Negative Nitrite (test code = Nitrite) negative Urobilinogen (test code = Urobilinogen) .2 Protein (test code = Protein) Negative pH (test code = pH) 6.5 Blood (test code = Blood) Negative Specific [place] (test code = Specific [place]) 1.010 Ketone (test code = Ketone) Negative Bilirubin (test code = Bilirubin) Negative Glucose (test code = Glucose) 100 Appearance (test code = Appearance) Clear Color (test code = Color) Yellow [facility] Groupurinalysis, stesimpi7657-54-42 10:45:46* Test Item Value Reference Range Interpretation Comme nts Leukocytes (test code = Leukocytes) Negative Nitrite (test code = Nitrite) negative Urobilinogen (test code = Urobilinogen) .2 Protein (test code = Protein) Negative pH (test code = pH) 7.0 Blood (test code = Blood) Negative Specific [place] (test code = Specific [place]) 1.015 Ketone (test code = Ketone) Negative Bilirubin (test code = Bilirubin) Negative Glucose (test code = Glucose) Negative Appearance (test code = Appearance) Clear Color (test code = Color) Yellow [facility] Groupculture,urine pres id jnuzc8699-93-69 09:49:00* Test Item Value Reference Range Interpretation Comme nts culture,urine (test code = culture,urine) SCANT SKIN TJ PRESENT. PATHOGEN NOT PRESENT AT 2 DAYS. [facility] xfhaesv3043-23-70 15:57:00* Test Item Value Reference Range Interpretation Comme nts Urine Culture (test code = 630-4) SPECIMEN HAS BEEN RECEIVED IN LAB AND IS IN PROGRESS. [facility] CtrUrine blood mbqvgujzh7399-60-65 15:55:00* Test Item Value Reference Range Interpretation Comme [facility] Urine Blood (test code = 79522-3) Nonhemolyzed Trace [facility] CtrColor of Urine by Copc2067-24-47 15:55:00* Test Item Value Reference Range Interpretation Comme nts Urine Color (test code = 76245-9) Yellow [facility] CtrAppearance of Gxzrk5347-43-44 15:55:00* Test Item Value Reference Range Interpretation Comme nts Urine Appearance (test code = 5767-9) Clear [facility] CtrUrine glucose uschzabef4010-07-60 15:55:00* Test Item Value Reference Range Interpretation Comme [facility] Urine Glucose (UA) (test cod e = 2349-9) Negative [facility] CtrBilirubin zg9051-73-25 15:55:00* Test Item Value Reference Range Interpretation Comme [facility] Urine Bilirubin (test code = 998289571) Negative [facility] CtrKetones wi0120-83-98 15:55:00* Test Item Value Reference Range Interpretation Comme [facility] Urine Ketones (test code = 98006345) Trace [facility] CtrSpecific gravity of Urine by Automated test strip 2024-03-02 15:55:00* Test Item Value Reference Range Interpretation Comme nts Urine Specific [place] (test code = 75242-4) 1.016 [facility] CtrpH hn9095-92-67 15:55:00* Test Item Value Reference Range Interpretation Comme nts Urine pH (test code = 2756-5) 6.000 [facility] CtrUrine blood vjevtauoz1817-03-29 15:55:00* Test Item Value Reference Range Interpretation Comme nts Urine Blood (test code = 79097-6) Nonhemolyzed Trace [facility] CtrpH au8912-01-76 15:55:00* Test Item Value Reference Range Interpretation Comme nts Urine pH (test code = 2756-5) 6.000 [facility] CtrProtein os5075-14-23 15:55:00* Test Item Value Reference Range Interpretation Comme [facility] Urine Protein (test code = 00125353) Negative [facility] CtrUrobilinogen, urine, sf8982-80-62 15:55:00* Test Item Value Reference Range Interpretation Comme [facility] Urine Urobilinogen (test cod e = 592441287) 1.0 [facility] CtrUrine nitrate kykvxqhcs4250-67-59 15:55:00* Test Item Value Reference Range Interpretation Comme nts Urine Nitrate (test code = 98594-0) Negative [facility] CtrUrine leukocyte esterase uzhyfohqc2731-70-53 15:55:00* Test Item Value Reference Range Interpretation Comme [facility] Urine Leukocyte Esterase (te st code = 008134140) Trace [facility] CtrRBC count ur gkuy5607-55-51 15:55:00* Test Item Value Reference Range Interpretation Comme nts Urine RBC (test code = 798-9) 3-5 [facility] CtrUrine examination for white blood cells (WBC) 2024-03-02 15:55:00* Test Item Value Reference Range Interpretation Comme nts Urine WBC (test code = 671159621) 0-2 [facility] CtrAutomated epithelial cells count in urine sediment (number/area)2024-03-02 15:55:00* Test Item Value Reference Range Interpretation Comme nts Urine Epithelial Cells (test code = 70201-9) -10 [facility] CtrBacteria detection in urine sediment by light inmjfxwjkf0994-39-77 15:55:00* Test Item Value Reference Range Interpretation Comme nts Urine Bacteria (test code = 97722-0) None Seen [facility] CtrProtein ac2190-59-07 15:55:00* Test Item Value Reference Range Interpretation Comme nts Urine Protein (test code = 34271804) Negative [facility] CtrUrine casts detection by automated method 2024-03-02 15:55:00* Test Item Value Reference Range Interpretation Comme nts Urine Casts (test code = 08593-3) 0-2 [facility] CtrUrobilinogen, urine, qr4596-74-34 15:55:00* Test Item Value Reference Range Interpretation Comme nts Urine Urobilinogen (test cod e = 872035970) 1.0 [facility] nitrate ipbnvfrgb6720-14-45 15:55:00* Test Item Value Reference Range Interpretation Comme nts Urine Nitrate (test code = 57628-6) Negative [facility] Center[facility] leukocyte esterase jsppkvckp9576-85-18 15:55:00* Test Item Value Reference Range Interpretation Comme nts Urine Leukocyte Esterase (te st code = 758759258) Trace [facility] CtrRBC count ur gxtm7107-90-69 15:55:00* Test Item Value Reference Range Interpretation Comme nts Urine RBC (test code = 798-9) 3-5 [facility] CtrUrine examination for white blood cells (WBC) 2024-03-02 15:55:00* Test Item Value Reference Range Interpretation Comme nts Urine WBC (test code = 514469860) 0-2 [facility] CtrAutomated epithelial cells count in urine sediment (number/area)2024-03-02 15:55:00* Test Item Value Reference Range Interpretation Comme nts Urine Epithelial Cells (test code = 67213-5) 6-10 [facility] CtrBacteria detection in urine sediment by light wdqplfxovg8664-75-14 15:55:00* Test Item Value Reference Range Interpretation Comme nts Urine Bacteria (test code = 08094-9) None Seen [facility] CtrUrine casts detection by automated method 2024-03-02 15:55:00* Test Item Value Reference Range Interpretation Comme nts Urine Casts (test code = 94953-2) 0-2 [facility] CtrColor of Urine by Zusl3898-62-77 15:55:00* Test Item Value Reference Range Interpretation Comme nts Urine Color (test code = 52576-3) Yellow [facility] CtrColor of Urine by Boin9716-17-52 15:55:00* Test Item Value Reference Range Interpretation Comme nts Urine Color (test code = 37758-6) Yellow [facility] CtrAppearance of Gnroq3889-13-50 15:55:00* Test Item Value Reference Range Interpretation Comme nts Urine Appearance (test code = 5767-9) Clear [facility] glucose yucyjbmjd7300-04-18 15:55:00* Test Item Value Reference Range Interpretation Comme nts Urine Glucose (UA) (test cod e = 2349-9) Negative [facility] CtrBilirubin gm3684-18-67 15:55:00* Test Item Value Reference Range Interpretation Comme nts Urine Bilirubin (test code = 268542335) Negative [facility] CtrKetones pq1865-10-20 15:55:00* Test Item Value Reference Range Interpretation Comme nts Urine Ketones (test code = 22509899) Trace [facility] CtrAppearance of Jwlhy8953-72-06 15:55:00* Test Item Value Reference Range Interpretation Comme nts Urine Appearance (test code = 5767-9) Clear [facility] CtrSpecific gravity of Urine by Automated test strip 2024-03-02 15:55:00* Test Item Value Reference Range Interpretation Comme nts Urine Specific [place] (test code = 90538-0) 1.016 [facility] Center[facility] blood vueletdsf3169-47-96 15:55:00* Test Item Value Reference Range Interpretation Comme nts Urine Blood (test code = 15310-8) Nonhemolyzed Trace [facility] CtrpH ww6028-61-48 15:55:00* Test Item Value Reference Range Interpretation Comme nts Urine pH (test code = 2756-5) 6.000 [facility] CtrProtein jc7194-78-51 15:55:00* Test Item Value Reference Range Interpretation Comme nts Urine Protein (test code = 26587525) Negative [facility] CtrUrobilinogen, urine, hr4628-44-20 15:55:00* Test Item Value Reference Range Interpretation Comme nts Urine Urobilinogen (test cod e = 217008775) 1.0 [facility] CtrUrine nitrate sdipftddm0459-78-73 15:55:00* Test Item Value Reference Range Interpretation Comme nts Urine Nitrate (test code = 19085-6) Negative [facility] leukocyte esterase ksvpetlyi8838-41-06 15:55:00* Test Item Value Reference Range Interpretation Comme nts Urine Leukocyte Esterase (te st code = 139990270) Trace [facility] CtrRBC count ur navp0759-85-87 15:55:00* Test Item Value Reference Range Interpretation Comme nts Urine RBC (test code = 798-9) 3-5 [facility] CtrUrine examination for white blood cells (WBC) 2024-03-02 15:55:00* Test Item Value Reference Range Interpretation Comme nts Urine WBC (test code = 004257516) 0-2 [facility] CtrAutomated epithelial cells count in urine sediment (number/area)2024-03-02 15:55:00* Test Item Value Reference Range Interpretation Comme nts Urine Epithelial Cells (test code = 17884-3) 6-10 [facility] CtrUrine glucose rbhzymuyf6081-06-32 15:55:00* Test Item Value Reference Range Interpretation Comme nts Urine Glucose (UA) (test cod e = 2349-9) Negative [facility] CtrBacteria detection in urine sediment by light hpqtxlglgn5754-14-97 15:55:00* Test Item Value Reference Range Interpretation Comme nts Urine Bacteria (test code = 72080-6) None Seen [facility] CtrUrine casts detection by automated method 2024-03-02 15:55:00* Test Item Value Reference Range Interpretation Comme nts Urine Casts (test code = 44919-9) 0-2 [facility] CtrBilirubin xs7661-87-78 15:55:00* Test Item Value Reference Range Interpretation Comme nts Urine Bilirubin (test code = 873547672) Negative [facility] CtrKetones kx8082-57-37 15:55:00* Test Item Value Reference Range Interpretation Comme nts Urine Ketones (test code = 59062718) Trace [facility] CtrSpecific gravity of Urine by Automated test strip 2024-03-02 15:55:00* Test Item Value Reference Range Interpretation Comme nts Urine Specific [place] (test code = 06094-5) 1.016 [facility] Vplomqchxazev2291-10-39 15:49:00* Test Item Value Reference Range Interpretation [...] (test code = urine culture added?) YES [facility] GroupUrinalysis macro (dipstick) panel - Jdykf5723-89-03 14:08:57* Test Item Value Reference Range Interpretation Comme nts Leukocytes (test code = Leukocytes) Negative Nitrite (test code = Nitrite) negative Urobilinogen (test code = Urobilinogen) .2 Protein (test code = Protein) Negative pH (test code = pH) 7.0 Blood (test code = Blood) Negative Specific [place] (test code = Specific [place]) 1.020 Ketone (test code = Ketone) Small Bilirubin (test code = Bilirubin) Negative Glucose (test code = Glucose) Negative Appearance (test code = Appearance) Clear Color (test code = Color) Yellow [facility], dyanshbw3149-78-00 14:08:57* Test Item Value Reference Range Interpretation Comme nts Leukocytes (test code = Leukocytes) Negative Nitrite (test code = Nitrite) negative Urobilinogen (test code = Urobilinogen) .2 Protein (test code = Protein) Negative pH (test code = pH) 7.0 Blood (test code = Blood) Negative Specific [place] (test code = Specific [place]) 1.020 Ketone (test code = Ketone) Small Bilirubin (test code = Bilirubin) Negative Glucose (test code = Glucose) Negative Appearance (test code = Appearance) Clear Color (test code = Color) Yellow [facility] URINALYSIS W SPECIFIC GJFZGWF8192-08-73 21:29:00* Test Item Value Reference Range Interpretation [...] POCT U APPEAR (test code = 3267) [facility] URINALYSIS W SPECIFIC ZSICOLV8780-82-22 15:38:00* Test Item Value Reference Range Interpretation [...] U APPEAR (test code = 3267) . [facility] URINALYSIS W SPECIFIC UGEZBHC0261-62-21 15:52:00* Test Item Value Reference Range Interpretation [...] POCT U APPEAR (test code = 3267) [facility] URINALYSIS W SPECIFIC AHXSTIL2518-29-29 15:08:00* Test Item Value Reference Range Interpretation [...] POCT U APPEAR (test code = 3267) [facility] URINALYSIS W SPECIFIC CXLBXZI6804-56-85 15:08:00* Test Item Value Reference Range Interpretation [...] POCT U APPEAR (test code = 3267) [facility] URINALYSIS W SPECIFIC TKUHXHS0165-64-89 15:01:00* Test Item Value Reference Range Interpretation [...] POCT U APPEAR (test code = 3267) [facility] URINALYSIS W SPECIFIC AODOZKB7740-65-14 15:01:00* Test Item Value Reference Range Interpretation [...] POCT U APPEAR (test code = 3267) [facility] URINALYSIS W SPECIFIC NPJMGVV4243-66-08 15:01:00* Test Item Value Reference Range Interpretation [...] POCT U APPEAR (test code = 3267) [facility] URINALYSIS W SPECIFIC [id number] 15:01:00* Test Item Value Reference Range Interpretation [...] POCT U APPEAR (test code = 3267) [facility] Urinalysis w/o Specific Yogteup4320-53-90 13:14:00* Test Item Value Reference Range Interpretation [...] = 3257) neg Negative - Negati ve [facility] Urinalysis w/o Specific Zuruwnz6199-74-09 13:14:00* Test Item Value Reference Range Interpretation [...] = 3257) neg Negative - Negati ve [facility] Urinalysis w/o Specific Rhcgrjt0863-21-38 13:14:00* Test Item Value Reference Range Interpretation [...] = 3257) neg Negative - Negati ve [facility] Urinalysis w/o Specific Oytnanf0204-18-50 13:14:00* Test Item Value Reference Range Interpretation [...] = 3257) neg Negative - Negati ve [facility] Urinalysis w/o Specific Orbljsx9731-17-86 13:14:00* Test Item Value Reference Range Interpretation [...] = 3257) neg Negative - Negati ve [facility] Urinalysis w/o Specific Elldruk3033-84-74 13:14:00* Test Item Value Reference Range Interpretation [...] = 3257) neg Negative - Negati ve [facility] Urinalysis w/o Specific Qxijffh6060-08-77 13:14:00* Test Item Value Reference Range Interpretation [...] = 3257) neg Negative - Negati ve [facility] Blfa5587-74-17 13:13:00* Test Item Value Reference Range Interpretation Comme nts POCT PREG (test code = 1605) Positive On board controls acceptable with C Line (test code = 3574) Yes POCT PREG LOT # (test code = 3575) POCT PREG TEST DATE ( test code = 3576) [facility] Hpez0135-97-77 13:13:00* Test Item Value Reference Range Interpretation Comme nts POCT PREG (test code = 1605) Positive On board controls acceptable with C Line (test code = 3574) Yes POCT PREG LOT # (test code = 3575) POCT PREG TEST DATE ( test code = 3576) [facility] [id number] 13:13:00* Test Item Value Reference Range Interpretation Comme nts POCT PREG (test code = 1605) Positive On board controls acceptable with C Line (test code = 3574) Yes POCT PREG LOT # (test code = 3575) POCT PREG TEST DATE ( test code = 3576) [facility] [id number] 13:13:00* Test Item Value Reference Range Interpretation Comme nts POCT PREG (test code = 1605) Positive On board controls acceptable with C Line (test code = 3574) Yes POCT PREG LOT # (test code = 3575) POCT PREG TEST DATE ( test code = 3576) [facility] [id number] 13:13:00* Test Item Value Reference Range Interpretation Comme nts POCT PREG (test code = 1605) Positive On board controls acceptable with C Line (test code = 3574) Yes POCT PREG LOT # (test code = 3575) POCT PREG TEST DATE ( test code = 3576) [facility] [id number] 13:13:00* Test Item Value Reference Range Interpretation Comme nts POCT PREG (test code = 1605) Positive On board controls acceptable with C Line (test code = 3574) Yes POCT PREG LOT # (test code = 3575) POCT PREG TEST DATE ( test code = 3576) [facility] [id number] 13:13:00* Test Item Value Reference Range Interpretation Comme nts POCT PREG (test code = 1605) Positive On board controls acceptable with C Line (test code = 3574) Yes POCT PREG LOT # (test code = 3575) POCT PREG TEST DATE ( test code = 3576) [facility] Notes <thead> Date/Time Note Provider Source [facility]2024-09-28 19:58:48 [facility]2024-09-28 19:58:48 [facility]2024-09-28 19:58:48 Future Tests Future scheduled test information is unavailable Pending Tests Pending diagnostic test information is unavailable Future Visits Future appointment information is unavailable Referrals to Other Providers <thead> Reason for Referral Referral Start Date Provider Provider Contact Information Provider Address NO PHYSICIAN Future Procedures <thead> Procedure Name Ordered Date Scheduled Date Monitoring April 01, 2024 2:07pm Sept ember 2023 Movement Count April 01, 2024 2:07pm April 01, 2024 Insert Peripheral IV Access April 01, 2024 2:20pm April 01, 2024 Admit to Inpatient April 13, 2024 5:37am S eptember 2023 5:30am Admit to Inpatient April 13, 2024 9:35am S eptember 2023 9:22am DISCHARGE PATIENT April 14, 2024 10:34am S eptember 2023 Future Medications Future medication information is unavailable Patient Instructions <tbody> Third Trimester of , Dpgp-rj-Kqzu Third Trimester of and COVID-19 Third Trimester of , Etaw-kb-Apbj Hemorrhage Care After Vagina l Delivery [facility]2024-09-28 19:58:48 [facility]2024-09-28 00:25:36 Patient Care Team <thead> Team Status: Active Member Role Status Dates . NO PHYSICIAN primary care physician Active . NO PHYSICIAN Primary Care Physician Active ASHLEY TORRES MD Emergency Provider Active BENJAMIN SANDRA MD Attending Provider Active BENJAMIN SANDRA MD Emergency Provider Active FELIZ GOLDBERG , DO Admitting Provider Active FELIZ GOLDBERG , Attending Provider Active FELIZ GOLDBERG DO Emergency Provider Active KIRK BE Next of Kin Active KIRK BE Emergency Contact Active [facility]2024-09-28 00:25:36 [facility] [id number] 00:25:36 [facility] [id number] 00:25:36 Future Tests Future scheduled test information is unavailable Pending Tests Pending diagnostic test information is unavailable Future Visits Future appointment information is unavailable Referrals to Other Providers <thead> Reason for Referral Referral Start Date Provider Provider Contact Information Provider Address NO PHYSICIAN Future Procedures <thead> Procedure Name Ordered Date Scheduled Date Monitoring April 01, 2024 2:07pm Sept ember 2023 Movement Count April 01, 2024 2:07pm April 01, 2024 Insert Peripheral IV Access April 01, 2024 2:20pm April 01, 2024 Admit to Inpatient April 13, 2024 5:37am S eptember 2023 5:30am Admit to Inpatient April 13, 2024 9:35am S eptember 2023 9:22am DISCHARGE PATIENT April 14, 2024 10:34am S eptember 2023 Future Medications Future medication information is unavailable Patient Instructions <tbody> Third Trimester of , Ipge-qg-Hufs Third Trimester of and COVID-19 Third Trimester of , Xydl-vv-Xqjl Hemorrhage Care After Vagina l Delivery [facility] [id number] 00:25:36 [facility] [id number] 04:03:27 Patient Care Team <thead> Team Status: Active Member Role Status Dates . NO PHYSICIAN primary care physician Active . NO PHYSICIAN Primary Care Physician Active ASHLEY TORRES MD Emergency Provider Active BENJAMIN SANDRA MD Attending Provider Active BENJAMIN SANDRA MD Emergency Provider Active FELIZ GOLDBERG DO Admitting Provider Active FELIZ GOLDBERG DO Attending Provider Active FELIZ GOLDBERG DO Emergency Provider Active KIRK BE Next of Kin Active KIRK BE Emergency Contact Active [facility] [id number] 04:03:27 [facility] [id number] 04:03:27 [facility] [id number] 04:03:27 Future Tests Future scheduled test information is unavailable Pending Tests <thead> Test Name Ordered Date Scheduled Date Hepatitis B Surface Antigen April 13, 2024 6:02am Future Visits Future appointment information is unavailable Referrals to Other Providers <thead> Reason for Referral Referral Start Date Provider Provider Contact Information Provider Address NO PHYSICIAN Future Procedures <thead> Procedure Name Ordered Date Scheduled Date Monitoring April 01, 2024 2:07pm Sept ember 2023 Movement Count April 01, 2024 2:07pm April 01, 2024 Insert Peripheral IV Access April 01, 2024 2:20pm April 01, 2024 Admit to Inpatient April 13, 2024 5:37am S eptember 2023 5:30am Admit to Inpatient April 13, 2024 9:35am S eptember 2023 9:22am DISCHARGE PATIENT April 14, 2024 10:34am S eptember 2023 Future Medications Future medication information is unavailable Patient Instructions <tbody> Third Trimester of , Wssl-cz-Kpbc Third Trimester of and COVID-19 Third Trimester of , Kwpx-ot-Xojk Hemorrhage Care After Vagina l Delivery [facility] [id number] 04:03:27 [facility] [id number] 06:06:50 Patient Care Team <thead> Team Status: Active Member Role Status Dates . NO PHYSICIAN primary care physician Active . NO PHYSICIAN Primary Care Physician Active ASHLEY TORRES MD Emergency Provider Active BENJAMIN SANDRA MD Attending Provider Active BENJAMIN SANDRA MD Emergency Provider Active FELIZ GOLDBERG DO Admitting Provider Active FELIZ GOLDBERG , Attending Provider Active FELIZ GOLDBERG DO Emergency Provider Active KIRK BE Next of Kin Active KIRK BE Emergency Contact Active [facility] [id number] 06:06:50 [facility] [id number] 06:06:50 Future Tests Future scheduled test information is unavailable Pending Tests <thead> Test Name Ordered Date Scheduled Date White Blood Count Red Blood Count Hemoglobin Hematocrit Mean Corpuscular Volume Mean Corpuscular Hemoglobin Mean Corpuscular Hemoglobin Concent Red Cell Distribution Width Platelet Count Mean Platelet Volume Rapid Plasma Reagin Hepatitis B Surface Antigen Future Visits Future appointment information is unavailable Referrals to Other Providers <thead> Reason for Referral Referral Start Date Provider Provider Contact Information Provider Address NO PHYSICIAN Future Procedures <thead> Procedure Name Ordered Date Scheduled Date Monitoring April 01, 2024 2:07pm Mar [id number] Movement Count April 01, 2024 2:07pm April 01, 2024 Insert Peripheral IV Access April 01, 2024 2:20pm April 01, 2024 Admit to Inpatient April 13, 2024 5:37am S eptemb2023 5:30am Future Medications Future medication information is unavailable Patient Instructions <tbody> Third Trimester of , Btqd-dm-Vhbk Third Trimester of and COVID-19 Third Trimester of , Plhq-iu-Znkq [facility]2024-09-17 14:54:50 Patient Care Team <thead> Team Status: Active Member Role Status Dates . NO PHYSICIAN primary care physician Active . NO PHYSICIAN Primary Care Physician Active ASHLEY TORRES MD Emergency Provider Active BENJAMIN SANDRA MD Attending Provider Active BENJAMIN SANDRA MD Emergency Provider Active KIRK BE Next of Kin Active KIRK BE Emergency Contact Active [facility]2024-09-17 14:54:50 [facility]2024-09-17 14:54:50 Future Tests Future scheduled test information is unavailable Pending Tests Pending diagnostic test information is unavailable Future Visits Future appointment information is unavailable Referrals to Other Providers <thead> Reason for Referral Referral Start Date Provider Provider Contact Information Provider Address NO PHYSICIAN Future Procedures <thead> Procedure Name Ordered Date Scheduled Date Monitoring April 01, 2024 2:07pm Mar Movement Count April 01, 2024 2:07pm April 01, 2024 Insert Peripheral IV Access April 01, 2024 2:20pm April 01, 2024 Future Medications Future medication information is unavailable Patient Instructions <tbody> Third Trimester of , Lzlx-gn-Zlfn Third Trimester of and COVID-19 Third Trimester of , Wzpx-ex-Ytxu [facility]2024-09-09 18:31:31 Patient Care Team <thead> Team Status: Active Member Role Status Dates . NO PHYSICIAN primary care physician Active . NO PHYSICIAN Primary Care Physician Active ASHLEY TORRES MD Emergency Provider Active BENJAMIN SANDRA MD Attending Provider Active BENJAMIN SANDRA MD Emergency Provider Active KIRK BE Next of Kin Active KIRK BE Emergency Contact Active [facility]2024-09-09 18:31:31 Future Tests Future scheduled test information is unavailable Pending Tests Pending diagnostic test information is unavailable Future Visits Future appointment information is unavailable Referrals to Other Providers <thead> Reason for Referral Referral Start Date Provider Provider Contact Information Provider Address NO PHYSICIAN Future Procedures <thead> Procedure Name Ordered Date Scheduled Date Monitoring April 01, 2024 2:07pm Mar [email or web address] Movement Count April 01, 2024 2:07pm April 01, 2024 Insert Peripheral IV Access April 01, 2024 2:20pm April 01, 2024 Future Medications Future medication information is unavailable Patient Instructions <tbody> Third Trimester of , Gbpt-gn-Zaeo Third Trimester of and COVID-19 [facility]2024-09-09 15:50:12 Patient Care Team <thead> Team Status: Active Member Role Status Dates . NO PHYSICIAN primary care physician Active . NO PHYSICIAN Primary Care Physician Active ASHLEY TORRES MD Emergency Provider Active BENJAMIN SANDRA MD Attending Provider Active BENJAMIN SANDRA MD Emergency Provider Active KIRK BE Next of Kin Active KIRK BE Emergency Contact Active [facility]2024-09-09 15:50:12 Future Tests Future scheduled test information is unavailable Pending Tests Pending diagnostic test information is unavailable Future Visits Future appointment information is unavailable Referrals to Other Providers <thead> Reason for Referral Referral Start Date Provider Provider Contact Information Provider Address NO PHYSICIAN Future Procedures <thead> Procedure Name Ordered Date Scheduled Date Monitoring April 01, 2024 2:07pm Mar [email or web address] Movement Count April 01, 2024 2:07pm April 01, 2024 Insert Peripheral IV Access April 01, 2024 2:20pm April 01, 2024 Future Medications Future medication information is unavailable Patient Instructions <tbody> Third Trimester of , Pywu-qm-Ilar [facility]2024-08-10 17:51:47 Patient Care Team <thead> Team Status: Active Member Role Status Dates . NO PHYSICIAN primary care physician Active . NO PHYSICIAN Primary Care Physician Active ASHLEY TORRES MD Emergency Provider Active KIRK BE Next of Kin Active KIRK HALLMANVIV Emergency Contact Active [facility]2024-08-10 17:51:47 Future Tests Future scheduled test information is unavailable Pending Tests Pending diagnostic test information is unavailable Future Visits Future appointment information is unavailable Referrals to Other Providers Referral information is unavailable Future Procedures Future procedure information is unavailable Future Medications Future medication information is unavailable Patient Instructions <tbody> Third Trimester of , Kpdo-uu-Irsp [facility]2024-05-28 08:18:05 Pt called and notified of the following Please notify the patient her labs are indicative of BV, meds have been sent to her pharmacy on file. Please have her complete the entire course as prescribed. Please notify the patient that yeast was identified on her pap. Meds have been sent to her pharmacy on file, please advise the patient to complete the meds as prescribed, and practice good perineal hygiene. [facility] Wallace 12/19/2023 8:21 AM [id number] 15:10:52 Pt notified medication will be sent today. FEDERICO RAE RN 10/27/2023 3:11 PM [facility] 15:05:22 Copied from [facility] #[id number]. Topic: Clinical - Medical Advice >> Oct 27, 2023 3:04 PM Patient Saw Feeder wrote: Patient returning missed call from the nurse. Thank you. Samantha PerezOhio Valley Surgical HospitalRlmdyz1318-07-86 12:49:43 Copied from [facility] #[id number]. Topic: Clinical - Medical Advice >> Oct 27, 2023 12:48 PM Patient Saw Feeder wrote: Gabi Thayer is a 28 year old female requesting call back states has not received rx that was to be sent 10/24. Please call [phone] once sent [facility] #[id number] - [place] - [address] AT [facility] Kalpana RahmanOhio Valley Surgical [id number] 15:40:54 Notified the patient of her positive STI results CHlamydia. Notified the patient her medication has been sent to her pharmacy on file. Educated patient she should complete the entire course, advised patient to practice safe sex practices and to remain abstinent for at least 1-2 weeks post treatment. Patient declines to have partner treated. Offered std pamphlet for partner education. Patient declinedstd pamphlet to be mailed to partner. Advised patient on HIV testing if she has not recently been tested. Advised [facility] appointment in 3 months. Pt verbalized understanding. Cassie Be RN 10/25/23 3:42 PM [facility]2024-04-03 15:36:50 Duplicate encounter. Cassie Be RN 10/25/23 3:36 PM [facility]2024-04-03 15:12:18 Copied from [facility] #[id number]. Topic: Clinical - Results >> Oct 25, 2023 3:11 PM Patient Saw Feeder wrote: Gabi Thayer is a 28 year old female returning missed call for results. Please call [phone] (home) Kalpana RahmanOhio Valley Surgical [id number] 13:10:01 2nd attempt to call patient, no answer, unable to leave vm. Verenice Gregorio [facility]2024-04-03 09:22:09 Attempted to call patient, no answer, left vm. Verenice Gregorio [facility]2024-04-02 16:10:04 Please notify the patient of her positive STI [...] testing if she has not recently been tested. [facility] Wallace 10/24/2023 4:11 PM [facility]
[2024-09-21] MEDS ORDERED: CEPHALEXIN 250 MG CAP ONE (01:53)
[2024-09-21] MEDS ORDERED: LIDOCAINE 1% 20 ML MDV ONE (01:53)
[2024-09-21] MEDS ORDERED: IBUPROFEN 400 MG TAB ONE (01:54)
[2024-09-21] MEDS ORDERED: ONDANSETRON 4 MG (ODT) TAB ONE (01:54)
[2024-09-21] MEDS ORDERED: SMZ./TMP. 800/160 MG TABLET ONE (01:54)
[2024-09-21 02:00] LABS: Specific Gravity 1.028 (1.005-1.030)
--- NOTE | 2024-09-21 04:38 | EDPHYS ---
Physician Documentation [facility] Name: Gabi Thayer Age: 29 yrs Sex: Female : 1995 Arrival Date: 09/21/2024 Time: 01:00 Bed 13 Private MD: ED Physician Delfino Luis HPI: 09/21 01:18 This 29 yrs old Female presents to ER via Unassigned with complaints of sp4 Abscess. 06:04 29-year-old female presents with complaint of right groin and right labial abscess. sp4 [employer]: 01:37 LMP 09/16/2024, unknown dd2 Historical: - Allergies: 01:37 Codeine; dd2 - PMHx: 01:37 Anxiety; HERPES; Rheumatoid Arthritis; dd2 - PSHx: 01:37 Cholecystectomy; dd2 - Immunization history:: Adult Immunizations up to date, Client reports receiving the 2nd dose of the Covid vaccine, Flu vaccine is up to date. - Infectious Disease History:: Denies. - Social history:: Smoking status: Reported history of juuling and/or vaping. - Family history:: not pertinent. ROS: 06:04 Constitutional: Negative for fever, chills, and weight loss, positive for right groin sp4 right labial abscess 06:04 All other systems are negative, Exam: 06:04 Constitutional: This is a well developed, well nourished patient who is awake, alert, sp4 and in no acute distress. Head/Face: Normocephalic, atraumatic. Eyes: Pupils equal round and reactive to light, extra-ocular motions intact. Lids and lashes normal. Conjunctiva and sclera are not injected. Cornea within normal limits. Periorbital areas with no swelling, redness, or edema. ENT: Nares patent. No nasal discharge, no septal abnormalities noted. Tympanic membranes are normal and external auditory canals are clear. Oropharynx with no redness, swelling, or masses, exudates, or evidence of obstruction, uvula midline. Mucous membranes moist. Neck: Trachea midline, no thyromegaly or masses palpated, and no cervical lymphadenopathy. Supple, full range of motion without nuchal rigidity, or vertebral point tenderness. Chest/axilla: Normal chest wall appearance and motion. Nontender with no deformity. No lesions are appreciated. Cardiovascular: Regular rate and rhythm with a normal S1 and S2. No gallops, murmurs, or rubs. Normal PMI, no JVD. No pulse deficits. Respiratory: Lungs have equal breath sounds bilaterally, clear to auscultation and percussion. No rales, rhonchi or wheezes noted. No increased work of breathing, no retractions or nasal flaring. Abdomen/GI: Soft, with normal bowel sounds. No distension or tympany. No guarding or rebound. No evidence of tenderness throughout. Back: No spinal tenderness. No costovertebral tenderness. Pelvic Exam: Normal external genitalia. There is small infected appearing cyst of the right lower groin towards the right labia majora. Approximately 1 x 2 cm lesion Skin: Warm, dry with normal turgor. Normal color with no rashes, and no evidence of cellulitis. Right lower groin infected appearing cyst MS/ Extremity: Pulses equal, no cyanosis. Neurovascular intact. Full, normal range of motion. Neuro: Awake and alert, GCS 15, oriented to person, place, time, and situation. Cranial nerves II-XII grossly intact. Motor strength 5/5 in all extremities. Sensory grossly intact. Psych: Awake, alert, with orientation to person, place and time. Behavior, mood, and affect are within normal limits Vital Signs: 01:35 BP 99 / 54; Pulse 75; Resp 16; Temp 98.6; Pulse Ox 98% on R/A; Weight 74.84 kg; Height dd2 5 ft. 1 in. ; Pain 5/10; 05:08 BP 121 / 80; Pulse 57; Resp 17 S; Temp 98.4(T); Pulse Ox 100% on R/A; ha1 01:35 Body Mass Index 31.18 (74.84 kg, 154.94 cm) dd2 01:35 Pain Scale: Adult dd2 [place] Coma Score: 06:04 Eye Response: spontaneous(4). Motor Response: obeys commands(6). Verbal Response: sp4 oriented(5). Total: 15. Procedures: 06:04 I \T\ D: Incision and drainage was performed for an abscess of the right groin right sp4 lower , towards the right labia Prepped with alcohol, Anesthetized with 15 ml's 1% Lidocaine. Incised with #11 blade. Drained small amount purulent fluid. bloody fluid. Packed with No packing applied. Dressing: sterile 4x4 gauze, the patient tolerated the procedure well. MDM: 01:33 Medical Screening Exam initiated sp4 06:04 Differential diagnosis: abscess, allergic reaction, cellulitis, insect bite. Data sp4 reviewed: vital signs, nurses notes, lab test result(s). 06:07 Data reviewed: lab test result(s), UPT: negative. Consideration of sp4 Admission/Observation Escalation of care including admission/observation considered. ED course: Small infected cyst was drained. 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 09/21 01:32 Order name: Test, Urine; Complete Time: 04:21 sp4 09/21 01:32 Order name: Dressing - Wound; Complete Time: 05:08 sp4 09/21 01:32 Order name: Gloves, Sterile; Complete Time: 01:57 sp4 09/21 01:32 Order name: Setup Suture Tray; Complete Time: 01:45 sp4 Administered Medications: 02:29 Drug: Ibuprofen PO 800 mg PO once Route: PO; dd2 03:00 Follow up: Response: No adverse reaction; Marked relief of symptoms ha1 02:29 Drug: Trimethoprim-Sulfamethoxazole PO (160 mg-800 mg (DS) 1 tablet PO once Route: PO; dd2 03:00 Follow up: Response: No adverse reaction; Marked relief of symptoms ha1 02:29 Drug: Cephalexin PO 500 mg PO once Route: PO; dd2 03:00 Follow up: Response: No adverse reaction; Marked relief of symptoms ha1 02:29 Drug: Ondansetron PO 4 mg PO once Route: PO; dd2 03:00 Follow up: Response: No adverse reaction; Marked relief of symptoms ha1 04:00 Drug: Lidocaine Infiltration (1 %) 40 ml 20 ml Infiltration once; to bedside {Note: ha1 ADMINISTERED BY DOCTOR KARLO .} Volume: 20 ml; Route: Infiltration; Disposition Summary: 09/21/24 04:37 Discharge Ordered Notes: Location: Home sp4 Problem: new sp4 Symptoms: have improved sp4 Condition: Stable sp4 Diagnosis - Infected sebaceous cyst Right groin sp4 Followup: sp4 - With: Ashlee Hammer MD - When: 7 - 10 days - Reason: Recheck today's complaints Discharge Instructions: - Discharge Summary Sheet sp4 - Skin Abscess, Rufm-nd-Ixrp sp4 Forms: - Patient Portal Instructions sp4 Prescriptions: - Ibuprofen 800 mg Oral Tablet - take 1 tablet ORAL route every 8 hours As needed take with food; 30 tablet; sp4 Refills: 0, Product Selection Permitted - Tramadol 50 mg Oral tablet - take 1 tablet ORAL route every 8 hours as needed; 20 tablet; Refills: 0, sp4 Product Selection Permitted - Bactrim DS 800-160 mg Oral Tablet - take 1 tablet ORAL route every 12 hours for 10 days; 20 tablet; Refills: 0, sp4 Product Selection Permitted Signatures: Dispatcher [employer] Sarah Wilkerson, RN RN ha1 Delfino Luis MD MD sp4 ALEXIS GRIGGS RN RN dd2
--- NOTE | 2024-09-21 04:38 | ER ---
Nurse's Notes [facility] Name: Gabi Thayer Age: 29 yrs Sex: Female : 1995 Arrival Date: 09/21/2024 Time: 01:00 Bed 13 Private MD: Diagnosis: Infected sebaceous cyst Right groin Presentation: 09/21 01:35 Chief complaint: Patient states: TWO ABSCESS IN RT GROIN. Coronavirus screen: At this dd2 time, the client does not indicate any symptoms associated with coronavirus-19. Ebola Screen: No symptoms or risks identified at this time. Initial Sepsis Screen: Does the patient meet any 2 criteria? No. Patient's initial sepsis screen is negative. Does the patient have a suspected source of infection? No. Patient's initial sepsis screen is negative. Risk Assessment: Do you want to hurt yourself or someone else? Patient reports no desire to harm self or others. Onset of symptoms is unknown. 01:35 Method Of Arrival: Ambulatory dd2 01:35 Acuity: DOC 3 dd2 Triage Assessment: 01:37 General: Appears in no apparent distress. Behavior is calm, cooperative, appropriate dd2 for age. Pain: Complains of pain in RT GROIN Pain currently is 5 out of 10 on a pain scale. Quality of pain is described as burning, stinging. EENT: No deficits noted. No signs and/or symptoms were reported regarding the EENT system. Neuro: No deficits noted. Lares Agitation-Sedation Scale (RASS): 0 - Alert and Calm. Cardiovascular: No deficits noted. Respiratory: No deficits noted. Airway is patent Respiratory effort is even, unlabored, Respiratory pattern is regular, symmetrical. GI: No deficits noted. No signs and/or symptoms were reported involving the gastrointestinal system. : Lesions noted Reports pain RT GROIN Patient is sexually active. Derm: Wound noted RT GROIN Abscess located on RT GROIN Reports burning, itching, pain that is 5 out of 10 on a pain scale. Musculoskeletal: No deficits noted. No signs and/or symptoms reported regarding the musculoskeletal system. CLINICAL SCIENCE LIAISON: 01:37 LMP 09/16/2024, unknown dd2 Historical: - Allergies: 01:37 Codeine; dd2 - PMHx: 01:37 Anxiety; HERPES; Rheumatoid Arthritis; dd2 - PSHx: 01:37 Cholecystectomy; dd2 - Immunization history:: Adult Immunizations up to date, Client reports receiving the 2nd dose of the Covid vaccine, Flu vaccine is up to date. - Infectious Disease History:: Denies. - Social history:: Smoking status: Reported history of juuling and/or vaping. - Family history:: not pertinent. Screenin:43 [facility] ED Fall Risk Assessment (Adult) History of falling in the last 3 months, dd2 including since admission No falls in past 3 months (0 pts) Confusion or Disorientation No (0 pts) Intoxicated or Sedated No (0 pts) Impaired Gait No (0 pts) Mobility Assist Device Used No (0 pt) Altered Elimination No (0 pt) Score/Fall Risk Level 0 - 2 = Low Risk Oriented to surroundings, Maintained a safe environment, Educated pt \T\ family on fall prevention, incl call for assistance when getting out of bed, Assessed \T\ reinforced patient's understanding of fall precautions, Hourly rounding (assess needs \T\ fall precautionary measures) done. Abuse screen: Denies threats or abuse. Denies injuries from another. Nutritional screening: No deficits noted. Tuberculosis screening: No symptoms or risk factors identified. Assessment: 01:43 Reassessment: SEE TRIAGE ASSESSMENT FOR FULL ASSESSMENT. dd2 03:59 Reassessment: Patient appears in no apparent distress at this time. Patient is alert, ay oriented x 3, equal unlabored respirations, skin warm/dry/pink. 05:08 Reassessment: Patient and/or family updated on plan of care and expected duration. Pain ha1 level reassessed. Patient is alert, oriented x 3, equal unlabored respirations, skin warm/dry/pink. Vital Signs: 01:35 BP 99 / 54; Pulse 75; Resp 16; Temp 98.6; Pulse Ox 98% on R/A; Weight 74.84 kg; Height dd2 5 ft. 1 in. ; Pain 5/10; 05:08 BP 121 / 80; Pulse 57; Resp 17 S; Temp 98.4(T); Pulse Ox 100% on R/A; ha1 01:35 Body Mass Index 31.18 (74.84 kg, 154.94 cm) dd2 01:35 Pain Scale: Adult dd2 Shawmut Coma Score: 06:04 Eye Response: spontaneous(4). Motor Response: obeys commands(6). Verbal Response: sp4 oriented(5). Total: 15. ED Course: 01:06 Patient arrived in ED. gm2 01:18 Delfino Luis MD is Attending Physician. sp4 01:27 ALEXIS GRIGGS, IHSAN is Primary Nurse. dd2 01:37 Triage completed. dd2 01:37 Arm band placed on right wrist. dd2 01:43 Patient has correct armband on for positive identification. Bed in low position. Call dd2 light in reach. Side rails up X 1. Client placed on continuous cardiac and pulse oximetry monitoring. NIBP monitoring applied. Door closed. Noise minimized. Warm blanket given. Pillow given. Verbal reassurance given. :43 No provider procedures requiring assistance completed. Patient did not have IV access dd2 during this emergency room visit. Patient maintains SpO2 saturation greater than 95% on room air. 01:57 Test, Urine Sent. dd2 04:37 Ashlee Hammer MD is Referral Physician. sp4 05:10 Provided Education on: follow up with OB. ha1 Administered Medications: 02:29 Drug: Ibuprofen PO 800 mg PO once Route: PO; dd2 03:00 Follow up: Response: No adverse reaction; Marked relief of symptoms ha1 02:29 Drug: Trimethoprim-Sulfamethoxazole PO (160 mg-800 mg (DS) 1 tablet PO once Route: PO; dd2 03:00 Follow up: Response: No adverse reaction; Marked relief of symptoms ha1 02:29 Drug: Cephalexin PO 500 mg PO once Route: PO; dd2 03:00 Follow up: Response: No adverse reaction; Marked relief of symptoms ha1 02:29 Drug: Ondansetron PO 4 mg PO once Route: PO; dd2 03:00 Follow up: Response: No adverse reaction; Marked relief of symptoms ha1 04:00 Drug: Lidocaine Infiltration (1 %) 40 ml 20 ml Infiltration once; to bedside {Note: ha1 ADMINISTERED BY DOCTOR KARLO .} Volume: 20 ml; Route: Infiltration; Medication: :43 VIS not applicable for this client. dd2 Outcome: 04:37 Discharge ordered by . sp4 05:09 Discharged to home ambulatory, with family, ha1 05:09 Condition: stable 05:09 Discharge instructions given to patient, Instructed on discharge instructions, follow up and referral plans. medication usage, Demonstrated understanding of instructions, follow-up care, medications, Prescriptions given X 3, 05:10 Patient left the ED. ha1 Signatures: Sarah Abernathy RN RN ha1 Delfino Luis MD MD sp4 Marika Mason 2 ALEXIS GRIGGS RN RN dd2 Hermann Loyd RN IHSAN ay
[2024-09-21 05:16] VITALS: BP 121/80; TEMP 98.4; O2SAT 100
== END 2024-09-21 05:10 | disposition home or self-care (01) ==
LOC: ER 01:00
PROC: 0H9AXZZ Drainage of Inguinal Skin, External Approach (ICD-10-PCS; principal; 2024-09-21)
DX: L72.3 Sebaceous cyst (principal)
CPT/HCPCS: 81025; 99284; 10060; Q0162; J2003